=== PATIENT | female | born 1985 | race Caucasian/White ===

== ENCOUNTER 2021-03-04 10:42 | Outpatient (RCR) | payer OTHER, SELFPAY ==
[2021-03-03 13:45] LABS: Basophils Percent Auto 0.2 % (0.2-1.2); Eosinophils Absolute Auto 0.1 K/mm3 (0-0.3); Eosinophils Percent Auto 1.4 % (0-4.4); Hematocrit 33.5 % (37.0-47.0); Hemoglobin 11.6 g/dL (12.0-15.0); Immature Granulocyte Absolute 0.06 K/mm3 (0.00-0.031); Immature Granulocyte Percent A 0.6 % (0-0.5); Lymphocytes Absolute Auto 1.36 K/mm3 (0.9-3.2); Lymphocytes Percent Auto 13.6 % (18.3-44.2); Mean Corpuscular HGB Conc 34.6 g/dl (32-36); Mean Corpuscular Hemoglobin 31.4 pg (26-34); Mean Corpuscular Volume 90.5 fl (80-100); Mean Platelet Volume 9.7 fl (7.4-10.4); Monocytes Absolute Auto 0.6 K/mm3 (0.1-0.6); Monocytes Percent Auto 5.6 % (2.6-8.5); Neutrophils Absolute Auto 7.8 K/mm3 (1.3-6.7); Neutrophils Percent Auto 78.6 % (45.5-73.1); Platelet Count Result 150 k/mm3 (150-375); Red Cell Distribution Width 13.9 % (11.5-14.5)
[2021-03-03 13:57] LABS: Glucose 1 Hour PP 50gm Dose 114 mg/dL
[2021-03-04] MEDS: RHO(D) IMMUNE GLOBULIN 300 MCG/2 ML SYRINGE IM (16:48)
== END 2021-03-04 10:45 | disposition home or self-care (01) ==
LOC: ANHLAB 10:42
PROVIDERS: Visit Provider Obstetrics & Gynecology
DX: Z29.13 Encounter for prophylactic Rho(D) immune globulin (principal); Z3A.25 25 weeks gestation of pregnancy
CPT/HCPCS: 36415; 82947; 85025; 85461; 90384; 96372; J2790

== ENCOUNTER 2021-03-21 11:48 | Outpatient (CLI) | payer OTHER, SELFPAY ==
[2021-03-21] VITALS (7 sets, daily range): BP systolic 129–146; BP diastolic 80–92; PULSE 82–94
--- NOTE | ~2021-03-21 | US_ITS ---
US OB limited 03/21/2021 13:41 Indication: Variable deceleration. Amniotic fluid index. Procedure: High-resolution Limited obstetrical ultrasound Comparison: No prior studies for comparison. Findings: There is a single living intrauterine in vertex presentation. heart rate is 130 BPM. Amniotic fluid volume is normal. BELLA measures 18.1 cm. Placenta is anterior without previa. Impression: 1: Single living intrauterine in vertex presentation. 2: Normal BELLA measures 18.1 cm. Reviewed, dictated and finalized at location B. LINE PLANT OPERATOR Impression: 1: Single living intrauterine in vertex presentation. 2: Normal BELLA measures 18.1 cm.
[2021-03-21 12:36] LABS: Basophils Percent Auto 0.1 % (0.2-1.2); Eosinophils Absolute Auto 0.1 K/mm3 (0-0.3); Eosinophils Percent Auto 1.2 % (0-4.4); Hemoglobin 12.4 g/dL (12.0-15.0); Immature Granulocyte Absolute 0.05 K/mm3 (0.00-0.031); Immature Granulocyte Percent A 0.6 % (0-0.5); Lymphocytes Absolute Auto 1.11 K/mm3 (0.9-3.2); Lymphocytes Percent Auto 12.5 % (18.3-44.2); Mean Corpuscular HGB Conc 34.4 g/dl (32-36); Mean Corpuscular Hemoglobin 30.8 pg (26-34); Mean Corpuscular Volume 89.6 fl (80-100); Mean Platelet Volume 10.2 fl (7.4-10.4); Monocytes Absolute Auto 0.5 K/mm3 (0.1-0.6); Monocytes Percent Auto 5.3 % (2.6-8.5); Neutrophils Absolute Auto 7.1 K/mm3 (1.3-6.7); Neutrophils Percent Auto 80.3 % (45.5-73.1); Platelet Count Result 153 k/mm3 (150-375); Red Blood Count 4.02 M/mm3 (4.2-5.4); Red Cell Distribution Width 14.4 % (11.5-14.5); White Blood Count 8.9 K/mm3 (4.5-10.0)
[2021-03-21 12:47] LABS: Creatinine Urine 135.5 mg/dL; Total Protein Urine Random 16 mg/dL; Ur Ttl Prot Creatinine Ratio 0.12 mg/mg (0-0.20)
[2021-03-21 12:48] LABS: Alanine Aminotransferase 16 U/L (4-35); Albumin Level 3.9 g/dL (3.5-5.1); Alkaline Phosphatase 74 U/L (38-126); Anion Gap 9 mmol/L (8-16); Aspartate Amino Transferase 22 U/L (14-36); Bilirubin,Total 0.4 mg/dL (0.2-1.3); Blood Urea Nitrogen 7 mg/dL (7-17); Calcium 9.5 mg/dL (8.4-10.2); Carbon Dioxide 22 mmol/L (22-30); Chloride 105 mmol/L (98-107); Estimated Glomerular Filt Rate > 60; Glucose 102 mg/dL (65-110); Potassium 3.7 mmol/L (3.4-5.0); Sodium 136 mmol/L (137-145); Uric Acid 3.4 mg/dL (2.5-7.5)
[2021-03-21 12:55] LABS: Add Urine Microscopic? YES; Appearance Urine Cloudy (Clear); Bacteria Urine Trace /hpf; Bilirubin Urine Negative (Negative); Blood Urine Negative (Negative); Color Urine Yellow (Yellow); Glucose Urine UA Negative (Negative); Ketones Urine Negative (Negative); Leukocyte Esterase Ur 1+ LEU/UL (NEGATIVE); Mucus Urine Rare /lpf; Nitrate Urine Negative (Negative); Protein Urine Negative (Negative); Specific Grav Ur 1.016 (1.001-1.035); Squamous Epithelial Cell Urine Few /hpf (Few); Urobilinogen Urine Negative mg/dL (<2.0)
--- NOTE | 2021-03-21 13:20 | PC.NURSE ---
Called Dr. Kumar with labs and BPs. Informed of variable deceleration. BELLA ordered. August D/C home with 24hr urine if BELLA WNL.
== END 2021-03-21 13:55 | disposition home or self-care (01) ==
LOC: ANHOBOP 11:53 → ANHOBPP 11:53
PROVIDERS: Visit Provider Obstetrics & Gynecology
DX: O13.9 Gestational [pregnancy-induced] hypertension without significant proteinuria, unspecified trimester (principal); Z3A.00 Weeks of gestation of pregnancy not specified
CPT/HCPCS: 36415; 59025; 76815; 80053; 81001; 82570; 84156; 84550; 85025; 99199

== ENCOUNTER 2021-03-22 13:05 | Outpatient (CLI) | payer OTHER, SELFPAY ==
[2021-03-22 13:39] VITALS: BMI 36.1
[2021-03-22 17:26] LABS: Collection Time Urine 24 HOURS; Total Volume 24 Hour Urine 2400 ml
[2021-03-22 17:37] LABS: Creatinine Clearance Urine 193.7 ml/min (75-125); Creatinine Urine 86.2 mg/dL; Patient Weight 230 Lbs; Total Protein Urine 24 Hr 336 mg/24hr (28-141); Total Protein Urine Random 14 mg/dL
== END 2021-03-22 13:06 | disposition home or self-care (01) ==
LOC: ANHOBOP 13:07
PROVIDERS: Visit Provider Obstetrics & Gynecology
DX: R80.9 Proteinuria, unspecified (principal)
CPT/HCPCS: 81050; 82575; 84156

== ENCOUNTER 2021-04-27 11:50 | Outpatient (CLI) | payer OTHER, SELFPAY ==
[2021-04-27] MEDS: BETAMETHASONE SOD PHOS/ACETATE 30 MG/5 ML VIAL 12 MG IM (12:59)
== END 2021-04-27 11:51 | disposition home or self-care (01) ==
LOC: ANHOBOP 11:54
PROVIDERS: Visit Provider Obstetrics & Gynecology
DX: Z34.90 Encounter for supervision of normal pregnancy, unspecified, unspecified trimester (principal); Z3A.00 Weeks of gestation of pregnancy not specified
CPT/HCPCS: 59025; 76815; 96372; J0702

== ENCOUNTER 2021-04-28 12:58 | Outpatient (CLI) | payer OTHER, SELFPAY ==
[2021-04-28] MEDS: BETAMETHASONE SOD PHOS/ACETATE 30 MG/5 ML VIAL 12 MG IM (13:22)
== END 2021-04-28 12:59 | disposition home or self-care (01) ==
LOC: ANHOBOP 13:05
PROVIDERS: Visit Provider Obstetrics & Gynecology
DX: O36.8990 Maternal care for other specified fetal problems, unspecified trimester, not applicable or unspecified (principal)
CPT/HCPCS: 96372; J0702

== ENCOUNTER 2021-04-30 09:10 | Outpatient (CLI) | payer OTHER, SELFPAY ==
[2021-04-30] VITALS (8 sets, daily range): BP systolic 120–133; BP diastolic 74–86; PULSE 59–69
--- NOTE | ~2021-04-30 | US_ITS ---
EXAMINATION: US OB limited EXAM DATE: 04/30/2021 11:52 INDICATION: Preeclampsia/ BELLA. 3rd trimester. TECHNIQUE: Pelvic obstetrical transabdominal sonogram was performed by a technologist. There are mu ltiple grayscale and Doppler images available for interpretation. Comparison is made to prior examina tion from 04/27/2021. FINDINGS: There is a single fetus identified in vertex presentation with a heart rate of 133 beats pe r minute. The placenta is located in the anterior position. There is no sonographic evidence of retr oplacental hemorrhage identified. The amniotic fluid index is 12.1 centimeters, which is normal. IMPRESSION: 1. Single fetus in vertex presentation with heart rate 133 beats per minute. 2. Normal BELLA 12.1 cm. Reviewed, dictated and finalized at location A. ING CONSULTANT
[2021-04-30 10:09] LABS: Add Urine Microscopic? NO; Appearance Urine Clear (Clear); Bilirubin Urine Negative (Negative); Blood Urine Negative (Negative); Color Urine Yellow (Yellow); Glucose Urine UA Negative (Negative); Ketones Urine Negative (Negative); Leukocyte Esterase Ur Negative LEU/UL (NEGATIVE); Nitrate Urine Negative (Negative); Protein Urine Negative (Negative); Specific Grav Ur 1.017 (1.001-1.035); Urobilinogen Urine Negative mg/dL (<2.0)
[2021-04-30 10:13] LABS: Creatinine Urine 172.9 mg/dL; Total Protein Urine Random 25 mg/dL; Ur Ttl Prot Creatinine Ratio 0.14 mg/mg (0-0.20)
[2021-04-30 10:18] LABS: Alanine Aminotransferase 14 U/L (4-35); Albumin Level 3.4 g/dL (3.5-5.1); Alkaline Phosphatase 94 U/L (38-126); Anion Gap 7 mmol/L (8-16); Aspartate Amino Transferase 20 U/L (14-36); Bilirubin,Total 0.2 mg/dL (0.2-1.3); Blood Urea Nitrogen 7 mg/dL (7-17); Calcium 8.6 mg/dL (8.4-10.2); Carbon Dioxide 24 mmol/L (22-30); Chloride 105 mmol/L (98-107); Estimated Glomerular Filt Rate > 60; Glucose 99 mg/dL (65-110); Potassium 3.2 mmol/L (3.4-5.0); Sodium 136 mmol/L (137-145); Uric Acid 4.4 mg/dL (2.5-7.5)
[2021-04-30 10:29] LABS: Basophils Percent Auto 0.3 % (0.2-1.2); Eosinophils Absolute Auto 0.1 K/mm3 (0-0.3); Eosinophils Percent Auto 0.4 % (0-4.4); Hematocrit 33.4 % (37.0-47.0); Hemoglobin 11.2 g/dL (12.0-15.0); Immature Granulocyte Absolute 0.43 K/mm3 (0.00-0.031); Immature Granulocyte Percent A 3.8 % (0-0.5); Lymphocytes Absolute Auto 1.68 K/mm3 (0.9-3.2); Mean Corpuscular HGB Conc 33.5 g/dl (32-36); Mean Corpuscular Hemoglobin 30.5 pg (26-34); Mean Platelet Volume 10.7 fl (7.4-10.4); Monocytes Absolute Auto 0.8 K/mm3 (0.1-0.6); Monocytes Percent Auto 7.5 % (2.6-8.5); Neutrophils Absolute Auto 8.2 K/mm3 (1.3-6.7); Platelet Count Result 167 k/mm3 (150-375); Red Blood Count 3.67 M/mm3 (4.2-5.4); Red Cell Distribution Width 14.4 % (11.5-14.5); White Blood Count 11.2 K/mm3 (4.5-10.0)
--- NOTE | 2021-04-30 11:28 | PC.NURSE ---
Dr Kumar notified of adm c/o of R upper quad pain, informed of BP's here and at home and lab results. OK to do BELLA today and okto dc home.
== END 2021-04-30 12:12 | disposition home or self-care (01) ==
LOC: ANHOBOP 09:18 → ANHOBPP 09:18
PROVIDERS: Visit Provider Obstetrics & Gynecology
DX: R10.11 Right upper quadrant pain (principal)
CPT/HCPCS: 36415; 59025; 76815; 80053; 81003; 82570; 84156; 84550; 85025; 99199

== ENCOUNTER 2021-05-14 08:59 | Outpatient (RCR) | payer OTHER, SELFPAY ==
[2021-03-28 15:16] LABS: Hematocrit 35.2 % (37.0-47.0); Hemoglobin 12.1 g/dL (12.0-15.0); Mean Corpuscular HGB Conc 34.4 g/dl (32-36); Mean Corpuscular Volume 90.3 fl (80-100); Mean Platelet Volume 10.1 fl (7.4-10.4); Platelet Count Result 159 k/mm3 (150-375); Red Cell Distribution Width 14.4 % (11.5-14.5); White Blood Count 8.6 K/mm3 (4.5-10.0)
[2021-03-28 15:25] LABS: Alanine Aminotransferase 13 U/L (4-35); Albumin Level 3.7 g/dL (3.5-5.1); Alkaline Phosphatase 72 U/L (38-126); Anion Gap 7 mmol/L (8-16); Aspartate Amino Transferase 20 U/L (14-36); Bilirubin,Total 0.4 mg/dL (0.2-1.3); Blood Urea Nitrogen 7 mg/dL (7-17); Calcium 9.2 mg/dL (8.4-10.2); Carbon Dioxide 24 mmol/L (22-30); Chloride 104 mmol/L (98-107); Estimated Glomerular Filt Rate > 60; Glucose 100 mg/dL (65-110); Potassium 3.8 mmol/L (3.4-5.0); Sodium 135 mmol/L (137-145); Uric Acid 3.2 mg/dL (2.5-7.5)
[2021-03-28 15:51] VITALS: BP 124/82; PULSE 100
--- NOTE | 2021-03-28 16:27 | PC.NURSE ---
Dr Kumar informed of US results, NST and Labs. Ok to dc home.
[2021-03-31 09:17] LABS: Basophils Percent Auto 0.2 % (0.2-1.2); Eosinophils Absolute Auto 0.1 K/mm3 (0-0.3); Eosinophils Percent Auto 1.5 % (0-4.4); Hematocrit 34.6 % (37.0-47.0); Hemoglobin 11.8 g/dL (12.0-15.0); Immature Granulocyte Absolute 0.06 K/mm3 (0.00-0.031); Immature Granulocyte Percent A 0.7 % (0-0.5); Lymphocytes Absolute Auto 0.98 K/mm3 (0.9-3.2); Lymphocytes Percent Auto 12.1 % (18.3-44.2); Mean Corpuscular HGB Conc 34.1 g/dl (32-36); Mean Corpuscular Hemoglobin 30.6 pg (26-34); Mean Corpuscular Volume 89.9 fl (80-100); Mean Platelet Volume 9.6 fl (7.4-10.4); Monocytes Absolute Auto 0.5 K/mm3 (0.1-0.6); Monocytes Percent Auto 6.3 % (2.6-8.5); Neutrophils Absolute Auto 6.4 K/mm3 (1.3-6.7); Neutrophils Percent Auto 79.2 % (45.5-73.1); Platelet Count Result 146 k/mm3 (150-375); Red Blood Count 3.85 M/mm3 (4.2-5.4); Red Cell Distribution Width 14.6 % (11.5-14.5); White Blood Count 8.1 K/mm3 (4.5-10.0)
[2021-03-31 09:27] LABS: Alanine Aminotransferase 15 U/L (4-35); Albumin Level 3.8 g/dL (3.5-5.1); Alkaline Phosphatase 71 U/L (38-126); Anion Gap 5 mmol/L (8-16); Aspartate Amino Transferase 21 U/L (14-36); Bilirubin,Total 0.4 mg/dL (0.2-1.3); Blood Urea Nitrogen 8 mg/dL (7-17); Calcium 9.2 mg/dL (8.4-10.2); Carbon Dioxide 26 mmol/L (22-30); Chloride 101 mmol/L (98-107); Estimated Glomerular Filt Rate > 60; Glucose 95 mg/dL (65-110); Potassium 3.8 mmol/L (3.4-5.0); Sodium 132 mmol/L (137-145); Uric Acid 3.1 mg/dL (2.5-7.5)
[2021-04-03 12:55] LABS: Basophils Percent Auto 0.2 % (0.2-1.2); Eosinophils Absolute Auto 0.1 K/mm3 (0-0.3); Eosinophils Percent Auto 0.8 % (0-4.4); Hematocrit 34.1 % (37.0-47.0); Hemoglobin 11.8 g/dL (12.0-15.0); Immature Granulocyte Absolute 0.07 K/mm3 (0.00-0.031); Immature Granulocyte Percent A 0.7 % (0-0.5); Lymphocytes Absolute Auto 1.31 K/mm3 (0.9-3.2); Mean Corpuscular HGB Conc 34.6 g/dl (32-36); Mean Corpuscular Hemoglobin 31.1 pg (26-34); Mean Corpuscular Volume 89.7 fl (80-100); Mean Platelet Volume 10.1 fl (7.4-10.4); Monocytes Absolute Auto 0.5 K/mm3 (0.1-0.6); Monocytes Percent Auto 5.3 % (2.6-8.5); Neutrophils Absolute Auto 8.1 K/mm3 (1.3-6.7); Platelet Count Result 157 k/mm3 (150-375); Red Cell Distribution Width 14.6 % (11.5-14.5); White Blood Count 10.1 K/mm3 (4.5-10.0)
[2021-04-03 13:02] LABS: Creatinine Urine 51.4 mg/dL; Total Protein Urine Random 14 mg/dL; Ur Ttl Prot Creatinine Ratio 0.27 mg/mg (0-0.20)
[2021-04-03 13:08] LABS: Alanine Aminotransferase 14 U/L (4-35); Albumin Level 3.9 g/dL (3.5-5.1); Alkaline Phosphatase 78 U/L (38-126); Anion Gap 7 mmol/L (8-16); Aspartate Amino Transferase 20 U/L (14-36); Bilirubin,Total 0.3 mg/dL (0.2-1.3); Blood Urea Nitrogen 7 mg/dL (7-17); Calcium 9.3 mg/dL (8.4-10.2); Carbon Dioxide 21 mmol/L (22-30); Chloride 102 mmol/L (98-107); Estimated Glomerular Filt Rate > 60; Glucose 96 mg/dL (65-110); Potassium 3.8 mmol/L (3.4-5.0); Sodium 130 mmol/L (137-145); Uric Acid 3.2 mg/dL (2.5-7.5)
[2021-04-03 13:51] LABS: Add Urine Microscopic? NO; Appearance Urine Clear (Clear); Bilirubin Urine Negative (Negative); Blood Urine Negative (Negative); Color Urine Straw (Yellow); Glucose Urine UA Negative (Negative); Ketones Urine Negative (Negative); Leukocyte Esterase Ur Negative LEU/UL (NEGATIVE); Nitrate Urine Negative (Negative); Protein Urine Negative (Negative); Specific Grav Ur 1.006 (1.001-1.035); Urobilinogen Urine Negative mg/dL (<2.0)
[2021-04-03 14:13] VITALS: BP 129/84; PULSE 87
[2021-04-07 12:43] VITALS: BP 130/89; PULSE 75
[2021-04-10 08:57] LABS: Basophils Percent Auto 0.3 % (0.2-1.2); Eosinophils Absolute Auto 0.1 K/mm3 (0-0.3); Eosinophils Percent Auto 1.6 % (0-4.4); Hematocrit 34.1 % (37.0-47.0); Hemoglobin 11.8 g/dL (12.0-15.0); Immature Granulocyte Absolute 0.04 K/mm3 (0.00-0.031); Immature Granulocyte Percent A 0.5 % (0-0.5); Lymphocytes Absolute Auto 0.97 K/mm3 (0.9-3.2); Lymphocytes Percent Auto 12.5 % (18.3-44.2); Mean Corpuscular HGB Conc 34.6 g/dl (32-36); Mean Corpuscular Hemoglobin 30.6 pg (26-34); Mean Corpuscular Volume 88.6 fl (80-100); Mean Platelet Volume 9.9 fl (7.4-10.4); Monocytes Absolute Auto 0.5 K/mm3 (0.1-0.6); Monocytes Percent Auto 6.2 % (2.6-8.5); Neutrophils Absolute Auto 6.1 K/mm3 (1.3-6.7); Neutrophils Percent Auto 78.9 % (45.5-73.1); Platelet Count Result 148 k/mm3 (150-375); Red Blood Count 3.85 M/mm3 (4.2-5.4); Red Cell Distribution Width 14.5 % (11.5-14.5); White Blood Count 7.7 K/mm3 (4.5-10.0)
[2021-04-10 09:00] VITALS: BP 137/89; PULSE 90
[2021-04-10 09:08] LABS: Anion Gap 6 mmol/L (8-16); Blood Urea Nitrogen 5 mg/dL (7-17); Carbon Dioxide 21 mmol/L (22-30); Chloride 106 mmol/L (98-107); Potassium 3.7 mmol/L (3.4-5.0); Sodium 133 mmol/L (137-145)
[2021-04-10 09:09] LABS: Alanine Aminotransferase 13 U/L (4-35); Albumin Level 3.4 g/dL (3.5-5.1); Alkaline Phosphatase 79 U/L (38-126); Aspartate Amino Transferase 22 U/L (14-36); Bilirubin,Total 0.3 mg/dL (0.2-1.3); Estimated Glomerular Filt Rate > 60; Glucose 117 mg/dL (65-110)
[2021-04-10 09:10] LABS: Add Urine Microscopic? YES; Appearance Urine Clear (Clear); Bacteria Urine Trace /hpf; Bilirubin Urine Negative (Negative); Blood Urine Negative (Negative); Color Urine Yellow (Yellow); Glucose Urine UA 1+ mg/dL (Negative); Ketones Urine Negative (Negative); Leukocyte Esterase Ur Negative LEU/UL (NEGATIVE); Mucus Urine Rare /lpf; Nitrate Urine Negative (Negative); Protein Urine Negative (Negative); RBC Urine 0-2 /hpf (0-2); Specific Grav Ur 1.013 (1.001-1.035); Squamous Epithelial Cell Urine Occasional /hpf (Few); Urobilinogen Urine Negative mg/dL (<2.0)
--- NOTE | 2021-04-10 09:30 | PC.NURSE ---
Dr. Kumar called with lab results and NST. Discharge orders received with standard labor precautions.
[2021-04-10 10:10] LABS: Creatinine Urine 120.6 mg/dL; Total Protein Urine Random 22 mg/dL; Ur Ttl Prot Creatinine Ratio 0.18 mg/mg (0-0.20)
[2021-04-13 09:50] VITALS: BP 129/84; PULSE 86
[2021-04-17 08:22] VITALS: BP 122/86; PULSE 85
[2021-04-17 08:28] LABS: Basophils Percent Auto 0.2 % (0.2-1.2); Eosinophils Absolute Auto 0.2 K/mm3 (0-0.3); Hematocrit 34.9 % (37.0-47.0); Immature Granulocyte Absolute 0.06 K/mm3 (0.00-0.031); Immature Granulocyte Percent A 0.7 % (0-0.5); Lymphocytes Absolute Auto 1.18 K/mm3 (0.9-3.2); Lymphocytes Percent Auto 14.5 % (18.3-44.2); Mean Corpuscular HGB Conc 34.4 g/dl (32-36); Mean Corpuscular Hemoglobin 30.7 pg (26-34); Mean Corpuscular Volume 89.3 fl (80-100); Mean Platelet Volume 9.9 fl (7.4-10.4); Monocytes Absolute Auto 0.5 K/mm3 (0.1-0.6); Monocytes Percent Auto 5.8 % (2.6-8.5); Neutrophils Absolute Auto 6.2 K/mm3 (1.3-6.7); Neutrophils Percent Auto 76.8 % (45.5-73.1); Platelet Count Result 141 k/mm3 (150-375); Red Blood Count 3.91 M/mm3 (4.2-5.4); Red Cell Distribution Width 14.5 % (11.5-14.5); White Blood Count 8.1 K/mm3 (4.5-10.0)
[2021-04-17 08:39] LABS: Alanine Aminotransferase 14 U/L (4-35); Albumin Level 3.3 g/dL (3.5-5.1); Alkaline Phosphatase 88 U/L (38-126); Anion Gap 8 mmol/L (8-16); Aspartate Amino Transferase 21 U/L (14-36); Bilirubin,Total 0.4 mg/dL (0.2-1.3); Blood Urea Nitrogen 6 mg/dL (7-17); Carbon Dioxide 21 mmol/L (22-30); Chloride 106 mmol/L (98-107); Estimated Glomerular Filt Rate > 60; Glucose 130 mg/dL (65-110); Potassium 3.7 mmol/L (3.4-5.0); Sodium 135 mmol/L (137-145); Uric Acid 3.5 mg/dL (2.5-7.5)
[2021-04-17 08:48] LABS: Add Urine Microscopic? YES; Appearance Urine Cloudy (Clear); Bacteria Urine Trace /hpf; Bilirubin Urine Negative (Negative); Blood Urine Negative (Negative); Color Urine Yellow (Yellow); Glucose Urine UA Negative (Negative); Ketones Urine Negative (Negative); Leukocyte Esterase Ur 1+ LEU/UL (NEGATIVE); Mucus Urine Few /lpf; Nitrate Urine Negative (Negative); Protein Urine Negative (Negative); Specific Grav Ur 1.017 (1.001-1.035); Squamous Epithelial Cell Urine Moderate /hpf (Few); Urobilinogen Urine Negative mg/dL (<2.0)
[2021-04-17 08:53] LABS: Creatinine Urine 185.5 mg/dL; Total Protein Urine Random 15 mg/dL; Ur Ttl Prot Creatinine Ratio 0.08 mg/mg (0-0.20)
--- NOTE | 2021-04-17 09:39 | PC.NURSE ---
0930- BELLA 8.0, called Dr. Prescott, reviewed labs and BELLA, discharge to home
[2021-04-20 11:26] VITALS: BP 127/90; PULSE 80
[2021-04-24 08:39] LABS: Basophils Percent Auto 0.2 % (0.2-1.2); Eosinophils Absolute Auto 0.1 K/mm3 (0-0.3); Hematocrit 35.2 % (37.0-47.0); Immature Granulocyte Absolute 0.06 K/mm3 (0.00-0.031); Immature Granulocyte Percent A 0.5 % (0-0.5); Lymphocytes Percent Auto 8.9 % (18.3-44.2); Mean Corpuscular HGB Conc 34.1 g/dl (32-36); Mean Corpuscular Hemoglobin 30.2 pg (26-34); Mean Corpuscular Volume 88.7 fl (80-100); Mean Platelet Volume 10.2 fl (7.4-10.4); Monocytes Absolute Auto 0.6 K/mm3 (0.1-0.6); Monocytes Percent Auto 4.9 % (2.6-8.5); Neutrophils Absolute Auto 9.5 K/mm3 (1.3-6.7); Neutrophils Percent Auto 84.5 % (45.5-73.1); Platelet Count Result 150 k/mm3 (150-375); Red Blood Count 3.97 M/mm3 (4.2-5.4); Red Cell Distribution Width 14.6 % (11.5-14.5); White Blood Count 11.2 K/mm3 (4.5-10.0)
[2021-04-24 08:51] LABS: Alanine Aminotransferase 16 U/L (4-35); Albumin Level 3.5 g/dL (3.5-5.1); Alkaline Phosphatase 106 U/L (38-126); Anion Gap 10 mmol/L (8-16); Aspartate Amino Transferase 22 U/L (14-36); Bilirubin,Total 0.4 mg/dL (0.2-1.3); Blood Urea Nitrogen 6 mg/dL (7-17); Carbon Dioxide 19 mmol/L (22-30); Chloride 104 mmol/L (98-107); Estimated Glomerular Filt Rate > 60; Glucose 145 mg/dL (65-110); Potassium 3.6 mmol/L (3.4-5.0); Sodium 133 mmol/L (137-145); Uric Acid 4.2 mg/dL (2.5-7.5)
[2021-04-24 08:57] VITALS: BP 124/85; PULSE 116
[2021-04-24 09:30] LABS: HIV 1/2 Ab P24 Ag Result Negative (Negative)
[2021-04-24 14:57] LABS: Rapid Plasma Reagin Non-Reactive (NonReactive)
[2021-04-27 13:29] VITALS: BP 128/86; PULSE 81
[2021-05-03 12:35] LABS: Basophils Percent Auto 0.2 % (0.2-1.2); Eosinophils Absolute Auto 0.1 K/mm3 (0-0.3); Eosinophils Percent Auto 0.9 % (0-4.4); Hematocrit 37.4 % (37.0-47.0); Hemoglobin 12.5 g/dL (12.0-15.0); Immature Granulocyte Absolute 0.11 K/mm3 (0.00-0.031); Immature Granulocyte Percent A 1.1 % (0-0.5); Lymphocytes Absolute Auto 1.25 K/mm3 (0.9-3.2); Lymphocytes Percent Auto 11.9 % (18.3-44.2); Mean Corpuscular HGB Conc 33.4 g/dl (32-36); Mean Corpuscular Hemoglobin 30.2 pg (26-34); Mean Corpuscular Volume 90.3 fl (80-100); Mean Platelet Volume 10.7 fl (7.4-10.4); Monocytes Absolute Auto 0.7 K/mm3 (0.1-0.6); Monocytes Percent Auto 6.7 % (2.6-8.5); Neutrophils Absolute Auto 8.3 K/mm3 (1.3-6.7); Neutrophils Percent Auto 79.2 % (45.5-73.1); Platelet Count Result 175 k/mm3 (150-375); Red Blood Count 4.14 M/mm3 (4.2-5.4); Red Cell Distribution Width 14.6 % (11.5-14.5); White Blood Count 10.5 K/mm3 (4.5-10.0)
[2021-05-03 12:45] LABS: Alanine Aminotransferase 12 U/L (4-35); Albumin Level 3.7 g/dL (3.5-5.1); Alkaline Phosphatase 117 U/L (38-126); Anion Gap 8 mmol/L (8-16); Aspartate Amino Transferase 19 U/L (14-36); Bilirubin,Total 0.6 mg/dL (0.2-1.3); Blood Urea Nitrogen 7 mg/dL (7-17); Calcium 9.5 mg/dL (8.4-10.2); Carbon Dioxide 23 mmol/L (22-30); Chloride 104 mmol/L (98-107); Estimated Glomerular Filt Rate > 60; Glucose 91 mg/dL (65-110); Potassium 4.1 mmol/L (3.4-5.0); Sodium 135 mmol/L (137-145)
[2021-05-03 13:15] LABS: Creatinine Urine 55.2 mg/dL; Total Protein Urine Random 10 mg/dL; Ur Ttl Prot Creatinine Ratio 0.18 mg/mg (0-0.20)
[2021-05-03 13:30] VITALS: BP 134/88; PULSE 86
[2021-05-08 10:56] LABS: Hematocrit 36.9 % (37.0-47.0); Hemoglobin 12.6 g/dL (12.0-15.0); Mean Corpuscular HGB Conc 34.1 g/dl (32-36); Mean Corpuscular Hemoglobin 30.4 pg (26-34); Mean Corpuscular Volume 89.1 fl (80-100); Mean Platelet Volume 10.8 fl (7.4-10.4); Platelet Count Result 167 k/mm3 (150-375); Red Blood Count 4.14 M/mm3 (4.2-5.4); Red Cell Distribution Width 14.5 % (11.5-14.5); White Blood Count 7.1 K/mm3 (4.5-10.0)
[2021-05-08 11:03] VITALS: BP 125/91; PULSE 95
[2021-05-08 11:08] LABS: Alanine Aminotransferase 15 U/L (4-35); Albumin Level 3.8 g/dL (3.5-5.1); Alkaline Phosphatase 131 U/L (38-126); Anion Gap 9 mmol/L (8-16); Aspartate Amino Transferase 21 U/L (14-36); Bilirubin,Total 0.3 mg/dL (0.2-1.3); Blood Urea Nitrogen 9 mg/dL (7-17); Calcium 9.5 mg/dL (8.4-10.2); Carbon Dioxide 21 mmol/L (22-30); Chloride 104 mmol/L (98-107); Estimated Glomerular Filt Rate > 60; Glucose 128 mg/dL (65-110); Potassium 3.6 mmol/L (3.4-5.0); Sodium 134 mmol/L (137-145); Uric Acid 4.6 mg/dL (2.5-7.5)
--- NOTE | 2021-05-08 11:14 | PC.NURSE ---
1110- Spoke with Dr. Kumar, orders for BELLA today. patient can leave after, will review results at appt
[2021-05-11 11:03] VITALS: BP 137/90; PULSE 112
--- NOTE | 2021-05-11 11:38 | PC.NURSE ---
1132- Spoke with Dr. Kumar, BELLA and BPs reviewed. Orders to discharge to home.
--- NOTE | ~2021-05-14 | US_ITS ---
EXAMINATION: US OB limited DATE: 04/27/2021 13:24 INDICATION: Preeclampsia, amniotic fluid index assessment, third trimester TECHNIQUE: Real-time ultrasound of the pelvis was performed. The interpreting radiologist was not pre sent for the study. COMPARISON: 04/24/2021 FINDINGS: There is a single living fetus in vertex presentation. The placenta is anterior. card iac activity and movement are noted. heart rate is 150 beats per minute (bpm). The amniot ic fluid index is 8.0 cm which is low (normal range: 8.1 cm to 24.8 cm) . IMPRESSION: 1. Single living fetus in vertex presentation. 2. Oligohydramnios. Reviewed, dictated and finalized at location A. OR SOFTWARE DEVELOPER
--- NOTE | ~2021-05-14 | US_ITS ---
US OB limited DATE: 04/13/2021 09:19 INDICATION: Amniotic fluid index determination. Preeclampsia. Oligohydramnios. TECHNIQUE: Real-time imaging and Doppler analysis COMPARISON: 04/10/2021 Limited obstetrical ultrasound examination FINDINGS: Live dueñas intrauterine gestation, fetus in longitudinal lie, vertex presentation. Feta l heart rate of 141 bpm. Anterior placenta. Amniotic fluid index measures 7.5 cm, below the 5th percentile and 8.6 cm. 95th percentile BELLA is 24. 2 cm. IMPRESSION: BELLA measures 7.5 cm, below the 5th percentile of 8.6 cm Reviewed, dictated and finalized at Location A. Reviewed, dictated and finalized at location A. CAR CARPENTER
--- NOTE | ~2021-05-14 | US_ITS ---
EXAMINATION: US OB limited DATE: 03/31/2021 09:36 INDICATION: Preeclampsia, third trimester TECHNIQUE: Real-time ultrasound of the pelvis was performed. The interpreting radiologist was not pre sent for the study. COMPARISON: 03/28/2021 FINDINGS: There is a single living fetus in vertex presentation. The placenta is anterior. card iac activity and movement are noted. heart rate is 138 beats per minute (bpm). The amniot ic fluid index is 10.5 cm which is normal. IMPRESSION: 1. Single living fetus in vertex presentation. 2. Normal amniotic fluid index. Reviewed, dictated and finalized at location A. ICE RN
--- NOTE | ~2021-05-14 | US_ITS ---
EXAMINATION: US OB limited DATE: 04/24/2021 09:08 INDICATION: Oligohydramnios. Third trimester. TECHNIQUE: Real-time ultrasound of the pelvis was performed. COMPARISON: Ultrasound 04/20/2021 FINDINGS: There is a single fetus in vertex presentation. The placenta is anterior. heart rate is 154 be ats per minute (bpm). The amniotic fluid index is 8.5 cm, which is normal. IMPRESSION: 1. Single living fetus in vertex presentation. 2. Normal amniotic fluid index. Reviewed, dictated and finalized at location A. DRY MARKER SUPERVISOR
--- NOTE | ~2021-05-14 | US_ITS ---
EXAMINATION: US OB limited DATE: 04/07/2021 13:14 INDICATION: Oligohydramnios. Third trimester. TECHNIQUE: Real-time ultrasound of the pelvis was performed. COMPARISON: Ultrasound 04/03/21 FINDINGS: There is a single fetus in vertex presentation. The placenta is anterior, 11.3 cm from the cervix. F etal heart rate is 127 beats per minute (bpm). The amniotic fluid index is 8.0 cm, which is low (5th percentile is 8.8 cm). IMPRESSION: 1. Single living fetus in vertex presentation. 2. Oligohydramnios. Reviewed, dictated and finalized at location A. WATER MACHINE OPERATOR
--- NOTE | ~2021-05-14 | US_ITS ---
US OB limited 05/14/2021 09:50 Indication: Evaluate amniotic fluid index. Gestational hypertension. Procedure: High-resolution Limited obstetrical ultrasound Comparison: 05/11/2021 Findings: There is a single living intrauterine in vertex presentation with heart rat e of 145 BPM. Placenta is anterior. Amniotic fluid index is below normal limits measuring 7.1 cm (nor mal range for gestational age is 7.7-24.9 cm). Impression: 1: Persistent oligohydramnios. Reviewed, dictated and finalized at location B. ER WORKER Impression: 1: Persistent oligohydramnios.
--- NOTE | ~2021-05-14 | US_ITS ---
EXAMINATION: US OB limited DATE: 04/20/2021 10:06 INDICATION: Preeclampsia. Third trimester. TECHNIQUE: Real-time ultrasound of the pelvis was performed. COMPARISON: Ultrasound 04/17/2021 FINDINGS: There is a single fetus in vertex presentation. The placenta is anterior. heart rate is 139 be ats per minute (bpm). The amniotic fluid index is 7.0 cm, which is low (5th percentile is 8.3 cm). IMPRESSION: 1. Single living fetus in vertex presentation. 2. Oligohydramnios. Reviewed, dictated and finalized at location A. CTOR MUSIC
--- NOTE | ~2021-05-14 | US_ITS ---
US OB limited DATE: 05/11/2021 11:19 INDICATION: Low normal amniotic fluid index TECHNIQUE: Real-time imaging and Doppler analysis COMPARISON: 05/08/2021 obstetrical ultrasound Limited examination FINDINGS: Vertex presentation. heart rate of 137 bpm. Anterior placenta. Amniotic fluid index measures 7.3 cm, below the 5th percentile BELLA 7.7 cm. IMPRESSION: Oligohydramnios: Amniotic fluid index of 7.3 cm Reviewed, dictated and finalized at Location A. Reviewed, dictated and finalized at location A. AND DIE MACHINIST
--- NOTE | ~2021-05-14 | US_ITS ---
US OB limited 04/10/2021 08:55 Indication: Preeclampsia Procedure: High-resolution Limited obstetrical ultrasound Comparison: 04/07/2021 Findings: There is a single living intrauterine in vertex presentation. heart rate is 166 BPM. Placenta is anterior. Amniotic fluid index is below normal limits measuring 6.7 cm (normal range for gestational age 8.6-24.2 cm). Impression: 1: Oligohydramnios. Reviewed, dictated and finalized at location A. OYMENT SECURITY OFFICER Impression: 1: Oligohydramnios.
--- NOTE | ~2021-05-14 | US_ITS ---
EXAMINATION: US OB limited DATE: 04/03/2021 13:22 INDICATION: Preeclampsia during third trimester . TECHNIQUE: Real-time ultrasound of the pelvis was performed. The interpreting radiologist was not pre sent for the study. COMPARISON: None. FINDINGS: There is a single living fetus in vertex presentation. The placenta is anterior. heart rate is 134 beats per minute (bpm). The amniotic fluid index is 9.3 cm, which is normal (5th%-95%: 8.8-23.8 cm at 31 weeks estimated gestational age). IMPRESSION: 1. Single living fetus in vertex presentation with heart rate of 134 bpm. 2. Normal amniotic fluid index of 9.3 cm. Reviewed, dictated and finalized at location A. ST NURSERY SUPERVISOR IMPRESSION: 1. Single living fetus in vertex presentation with heart rate of 134 bpm . 2. Normal amniotic fluid index of 9.3 cm.
--- NOTE | ~2021-05-14 | US_ITS ---
EXAMINATION: US OB limited DATE: 05/08/2021 11:36 INDICATION: Assess amniotic fluid index TECHNIQUE: Real-time ultrasound of the pelvis was performed. The interpreting radiologist was not pre sent for the study. COMPARISON: 05/03/2021 FINDINGS: There is a single living fetus in vertex presentation. The placenta is anterior and not low-lying. F etal heart rate is 135 beats per minute (bpm). The amniotic fluid index is 8.4 cm, which is normal (5 th%-95%: 7.7-24.9 cm at 36 weeks estimated gestational age). IMPRESSION: 1. Single living fetus in vertex presentation with heart rate of 135 bpm. 2. Normal amniotic fluid index of 8.4 cm. Reviewed, dictated and finalized at location A. PROFIT JOB TITLES
--- NOTE | ~2021-05-14 | US_ITS ---
EXAMINATION: US OB limited DATE: 04/17/2021 09:27 INDICATION: Assess amniotic fluid index during third trimester of TECHNIQUE: Real-time ultrasound of the pelvis was performed. The interpreting radiologist was not pre sent for the study. COMPARISON: 04/13/2021 FINDINGS: There is a single living fetus in vertex presentation. The placenta is anterior. heart rate is 138 beats per minute (bpm). The amniotic fluid index is 8.0 cm is just below the lower limits of nor mal (5th%-95%: 8.3-24.5 cm at 33 weeks estimated gestational age). IMPRESSION: 1. Single living fetus in vertex presentation with heart rate of 138 bpm. 2. Oligohydramnios with amniotic fluid index of 8.0 cm which is slightly greater than 2 standard maicol ations below the mean. Reviewed, dictated and finalized at location A. TRICAL CAD DESIGNER IMPRESSION: 1. Single living fetus in vertex presentation with heart rate of 138 bpm . 2. Oligohydramnios with amniotic fluid index of 8.0 cm which is slightly greate r than 2 standard deviations below the mean.
--- NOTE | ~2021-05-14 | US_ITS ---
EXAMINATION: US OB limited DATE: 05/03/2021 14:23 INDICATION: Preeclampsia. Third trimester. TECHNIQUE: Real-time ultrasound of the pelvis was performed. COMPARISON: Ultrasound 04/30/2021 FINDINGS: There is a single fetus in vertex presentation. The placenta is anterior. heart rate is 140 be ats per minute (bpm). The amniotic fluid index is 9.5 cm, which is normal. IMPRESSION: 1. Single living fetus in vertex presentation. 2. Normal amniotic fluid index. Reviewed, dictated and finalized at location B. DINGS AND GROUNDS SUPERINTENDENT
--- NOTE | ~2021-05-14 | US_ITS ---
EXAMINATION: Omero Kumar MD DATE: 03/28/2021 15:50 INDICATION: Preeclampsia during third trimester of . Assess growth TECHNIQUE: Real-time ultrasound of the pelvis was performed. The interpreting radiologist was not pre sent for the study. COMPARISON: None. FINDINGS: There is a single living fetus in vertex presentation. The placenta is anterior. heart rate is 141 beats per minute (bpm). The amniotic fluid index is 8.0 cm, which is greater than 2 standard dev iations below the mean (5th%-95%: 9.0-23.4 cm at 30 weeks estimated gestational age) . The following biometric data were obtained: BPD: 7.8 cm -> 31 weeks 2 days Head circumference: 28.3 cm -> 31 weeks 0 days Abdominal circumference: 27.2 cm -> 31 weeks 2 days Femur length: 5.6 cm -> 29 weeks 4 days These measurements are concordant. Head circumference to abdominal circumference ratio: 1.04 (normal range 0.96-1.17). Estimated weight: 1632 g (+/-) 245 g, 3lbs 10oz (+/-) 9oz Biophysical profile performed by the technologist: breathing (30 sec sustained breathing in 30 minutes): 2 out of 2 movement (3 gross body movements in 30 minutes: 2 out of 2 tone (one episode of qvvpalv-xpzdioouz-lzfwvew limb movement): 2 out of 2 Amniotic fluid pocket (2 cm): 2 out of 2 Total score: 8 out of 8 IMPRESSION: 1. Single living fetus in vertex presentation. 2. Oligohydramnios with amniotic fluid index of 8.0 cm greater than 2 standard deviations below the mean. 3. Biophysical profile 8 out of 8. 4. Estimated weight is 59th percentile by Hadlock criteria when 06/05/2021 is used as the estim ated date of delivery (NINFA). Please correlate with clinical information or earlier ultrasounds for mo st accurate NINFA. Reviewed, dictated and finalized at location B. ERSHIP SALES REPRESENTATIVE IMPRESSION: 1. Single living fetus in vertex presentation. 2. Oligohydramnios with amniotic fluid index of 8.0 cm greater than 2 standard deviations below the mean. 3. Biophysical profile 8 out of 8. 4. Estimated weight is 59th percentile by Hadlock criteria when 2 is used as the estimated date of delivery (NINFA). Please correlate with clinic al information or earlier ultrasounds for most accurate NINFA.
[2021-05-14 09:28] VITALS: BP 138/96; PULSE 93
[2021-05-14 09:31] LABS: Basophils Percent Auto 0.4 % (0.2-1.2); Eosinophils Absolute Auto 0.1 K/mm3 (0-0.3); Hematocrit 35.8 % (37.0-47.0); Hemoglobin 12.3 g/dL (12.0-15.0); Immature Granulocyte Absolute 0.04 K/mm3 (0.00-0.031); Immature Granulocyte Percent A 0.5 % (0-0.5); Lymphocytes Absolute Auto 1.44 K/mm3 (0.9-3.2); Lymphocytes Percent Auto 18.8 % (18.3-44.2); Mean Corpuscular HGB Conc 34.4 g/dl (32-36); Mean Corpuscular Volume 90.2 fl (80-100); Mean Platelet Volume 10.8 fl (7.4-10.4); Monocytes Absolute Auto 0.4 K/mm3 (0.1-0.6); Monocytes Percent Auto 5.1 % (2.6-8.5); Neutrophils Absolute Auto 5.7 K/mm3 (1.3-6.7); Neutrophils Percent Auto 74.2 % (45.5-73.1); Platelet Count Result 164 k/mm3 (150-375); Red Blood Count 3.97 M/mm3 (4.2-5.4); Red Cell Distribution Width 14.5 % (11.5-14.5); White Blood Count 7.6 K/mm3 (4.5-10.0)
[2021-05-14 09:43] LABS: Alanine Aminotransferase 16 U/L (4-35); Albumin Level 3.4 g/dL (3.5-5.1); Alkaline Phosphatase 132 U/L (38-126); Anion Gap 10 mmol/L (8-16); Aspartate Amino Transferase 20 U/L (14-36); Bilirubin,Total 0.3 mg/dL (0.2-1.3); Blood Urea Nitrogen 9 mg/dL (7-17); Carbon Dioxide 17 mmol/L (22-30); Chloride 105 mmol/L (98-107); Estimated Glomerular Filt Rate > 60; Glucose 144 mg/dL (65-110); Potassium 3.4 mmol/L (3.4-5.0); Sodium 132 mmol/L (137-145); Uric Acid 4.5 mg/dL (2.5-7.5)
--- NOTE | 2021-05-14 10:52 | PC.NURSE ---
Called Dr. Kumar with lab results, ultrasound report and BPs 138/96, 155/94, 152/97, 137/91. August D/C home.
== END 2021-05-15 07:01 | disposition home or self-care (01) ==
LOC: ANHOBOP 08:59
PROVIDERS: Student in an Organized Health Care Education/Training Program; Visit Provider Obstetrics & Gynecology
DX: Z11.4 Encounter for screening for human immunodeficiency virus [HIV] (principal); O14.93 Unspecified pre-eclampsia, third trimester; O41.03X0 Oligohydramnios, third trimester, not applicable or unspecified; Z3A.32 32 weeks gestation of pregnancy
CPT/HCPCS: 36415; 59025; 76815; 76816; 76819; 80053; 81001; 81003; 82570; 84156; 84550; 85025; 85027; 86592; 86703; 87086; G0432; J2795

== ENCOUNTER 2021-05-15 17:04 | Inpatient (IN) | payer OTHER, SELFPAY ==
[2021-05-15] VITALS (10 sets, daily range): BP systolic 132–157; BP diastolic 89–100; PULSE 76–87; BMI 38.4
--- NOTE | 2021-05-15 17:40 | LDADM ---
This patient, Aletha Bermudez, was admitted to Labor/Delivery/Recovery 109 on 05/15/21 at 17:04. Plans for labor, pain management and were discussed with patient. Patient/family oriented to hospital policies and general routines including ID bracelet, bed and alarms, visiting hours, pain management, procedures, bathroom and other care routines, personal items, smoking policy, room service/diet and guest tray routines, infant security routines, and visiting hours. Patient/Family are encouraged to report perceived risks to care and to ask questions if they do not understand what they are told or what they should do. See OBIX for further documentation.
[2021-05-15 18:13] LABS: Basophils Percent Auto 0.2 % (0.2-1.2); Eosinophils Absolute Auto 0.1 K/mm3 (0-0.3); Eosinophils Percent Auto 1.1 % (0-4.4); Hematocrit 35.2 % (37.0-47.0); Hemoglobin 12.1 g/dL (12.0-15.0); Immature Granulocyte Absolute 0.05 K/mm3 (0.00-0.031); Immature Granulocyte Percent A 0.6 % (0-0.5); Lymphocytes Absolute Auto 1.27 K/mm3 (0.9-3.2); Lymphocytes Percent Auto 15.3 % (18.3-44.2); Mean Corpuscular HGB Conc 34.4 g/dl (32-36); Mean Corpuscular Hemoglobin 30.6 pg (26-34); Mean Corpuscular Volume 89.1 fl (80-100); Mean Platelet Volume 10.7 fl (7.4-10.4); Monocytes Absolute Auto 0.5 K/mm3 (0.1-0.6); Monocytes Percent Auto 5.4 % (2.6-8.5); Neutrophils Absolute Auto 6.4 K/mm3 (1.3-6.7); Neutrophils Percent Auto 77.4 % (45.5-73.1); Platelet Count Result 168 k/mm3 (150-375); Red Blood Count 3.95 M/mm3 (4.2-5.4); Red Cell Distribution Width 14.5 % (11.5-14.5); White Blood Count 8.3 K/mm3 (4.5-10.0)
[2021-05-15 18:24] LABS: Alanine Aminotransferase 15 U/L (4-35); Albumin Level 3.7 g/dL (3.5-5.1); Alkaline Phosphatase 134 U/L (38-126); Anion Gap 8 mmol/L (8-16); Aspartate Amino Transferase 23 U/L (14-36); Bilirubin,Total 0.3 mg/dL (0.2-1.3); Blood Urea Nitrogen 10 mg/dL (7-17); Calcium 9.2 mg/dL (8.4-10.2); Carbon Dioxide 21 mmol/L (22-30); Chloride 106 mmol/L (98-107); Estimated CRCL calculation 107 ml/min; Estimated Glomerular Filt Rate > 60; Glucose 113 mg/dL (65-110); Potassium 3.8 mmol/L (3.4-5.0); Sodium 135 mmol/L (137-145); Uric Acid 4.6 mg/dL (2.5-7.5)
[2021-05-15] MEDS: DINOPROSTONE 10 MG VAG INSERT VAGINAL (18:36)
[2021-05-15] MEDS: LACTATED RINGERS 1,000 ML 125 ML IV CONT (19:04)
[2021-05-15] MEDS: AMPICILLIN 2 GM/NS 100 ML 2 GM/100 ML BAG IVPB (19:04)
[2021-05-15 19:10] LABS: Rubella IgG Antibody 16.1 IU/ML
[2021-05-15 19:11] LABS: Hepatitis B Surface Antigen Negative (Negative)
[2021-05-15] MEDS: AMPICILLIN 1 GM/NS 50 ML 1 GM/50 ML BAG IVPB (23:56)
[2021-05-16] VITALS (157 sets, daily range): BP systolic 96–179; BP diastolic 59–108; PULSE 67–145; RESP 18; TEMP 36.1–37.4; O2SAT 92–100
[2021-05-16] MEDS: fentaNYL CITRATE INJ (*CRX) 100 MCG/2 ML VIAL 50 MCG IV PUSH (01:39)
[2021-05-16] MEDS: fentaNYL CITRATE INJ (*CRX) 100 MCG/2 ML VIAL IV PUSH ×2 (04:29→09:39)
[2021-05-16] MEDS: AMPICILLIN 1 GM/NS 50 ML 1 GM/50 ML BAG IVPB ×3 (04:31→12:28)
[2021-05-16] MEDS: LACTATED RINGERS 1,000 ML 125 ML IV CONT ×2 (07:24→15:22)
[2021-05-16] MEDS: OXYTOCIN 30 UNITS/NS 500 ML 30 UNITS/500 ML BAG 6 UNITS IV CONT (07:24)
--- NOTE | 2021-05-16 09:56 | PM.IMHP ---
H&P: HPI History of Present Illness Date/Time: 05/16/21 09:56 Patient is a G1 at 37 weeks by LMP sure 08/29/2020 with an EDC 06/05/21 consistent with second trimester ultrasound, admitted for MIL for mild pre-eclampsia. She denies headache, scotomata or RUQ pain. She has been followed with serial surveillance and PIH labs. No signs or symptoms of severe disease. Labs reviewed. BT O neg. She did receive rhogam. GBS pos. Chief Complaint: Induction of labor Review of Systems Review of Systems: All systems reviewed & are unremarkable except as noted in HPI and below Constitutional: Constitutional: Reports no additional constitutional complaints and Denies headache(s) Eyes: Eyes: Denies spots in vision ENT: Reports system reviewed and no additional complaints, except as documented and Denies headache(s) Cardiovascular: Cardiovascular: Denies chest pain and Denies dyspnea Respiratory: Respiratory: Denies dyspnea Gastrointestinal: Gastrointestinal: Reports no additional gastrointestinal complaints Genitourinary: Genitourinary: Reports amenorrhea Musculoskeletal: Musculoskeletal: Reports no additional musculoskeletal complaints Integumentary/Breasts: Skin/Breast: Denies breast mass and Denies rash Neurologic: Denies headache(s) Psychiatric: Psychiatric: Reports no additional psychiatric complaints [facility] Past Medical History Medical History History of human papillomavirus infection No active medical problems Surgical History Surgical History No significant past surgical history Family History Family History Father Hypertension Heart disease Sibling Hypertension Grandparent Carcinoma of colon Lung cancer Ovarian cancer Social History Social History Smoking status: Never smoker Alcohol intake: current Substance use: never Spiritual care concerns: No Meds Home Medications and Allergies Home Medications Medication Instructions Recorded Confirmed Type prenat.vits,jesus,dhe-tosd-qczbi 1 tablet PO DAILY 12/26/20 05/03/21 History blood pressure monitor #1 ea 03/21/21 05/03/21 Rx cholecalciferol (vitamin D3) 25 mcg PO DAILY 04/13/21 05/03/21 History [Vitamin D3] ferrous sulfate [Slow Fe] 142 mg PO DAILY 04/13/21 05/03/21 History Allergies Allergy/AdvReac Type Severity Reaction Status Date / Time No Known Allergies Allergy Verified 05/08/21 12:02 Vital Signs Vital Signs - 24 hr 05/15/21 18:43 05/15/21 18:46 05/15/21 19:01 Temperature Pulse Rate 81 83 87 Blood Pressure 141/100 H 132/98 H 134/90 05/15/21 19:16 05/15/21 19:31 05/15/21 19:46 Temperature Pulse Rate 77 76 82 Blood Pressure 134/89 134/89 148/92 H 05/15/21 20:02 05/15/21 20:16 05/15/21 20:31 Temperature Pulse Rate 76 79 80 Blood Pressure 134/97 H 150/94 H 155/92 H 05/15/21 20:46 05/16/21 01:03 05/16/21 01:43 Temperature 98.9 F Pulse Rate 76 74 77 Blood Pressure 157/98 H 160/100 H 151/98 H 05/16/21 04:35 05/16/21 07:26 05/16/21 07:30 Temperature Pulse Rate 92 91 85 Blood Pressure 151/98 H 153/101 H 149/100 H 05/16/21 08:44 05/16/21 09:31 05/16/21 09:46 Temperature Pulse Rate 80 81 68 Blood Pressure 172/106 H 172/97 H 179/99 H Exam Const: General: no acute distress Eyes: General: appearance normal, both eyes and all related structures Resp: Effort & Inspection: normal respiratory effort Cardio: Rate: regular rate GI: Other: Gravid no fundal tenderness no right upper quadrant pain : External Female Exam: normal external appearance Other: cervix 3/60/-2 Skin: General skin exam: no rashes or lesions noted Neuro: Cognition (Neuro): normal cognition Extrem: General: normal to inspection Psych: Mental Status: menta
--- NOTE | 2021-05-16 10:11 | WPDANESEPP ---
Anes - Eval Pre Procedure Procedure: Labor Epidural Date/Time: 05/16/21 10:11 Surgeon: José Preop Diagnosis: Labor Pain Pre Op Diagnosis: IOL Patient Data Age: 36 Gender: F Height: 1.68 m Weight: 108 kg Last Vital Signs Temp 37.2 C 05/16/21 01:03 Pulse 75 05/16/21 10:01 BP 144/91 H 05/16/21 10:01 Allergies Allergy/AdvReac Type Severity Reaction Status Date / Time No Known Allergies Allergy Verified 05/08/21 12:02 Home Medications Medication Instructions Recorded Confirmed Type prenat.vits,jesus,cyi-cdpm-ttilj 1 tablet PO DAILY 12/26/20 05/03/21 History blood pressure monitor #1 ea 03/21/21 05/03/21 Rx cholecalciferol (vitamin D3) 25 mcg PO DAILY 04/13/21 05/03/21 History [Vitamin D3] ferrous sulfate [Slow Fe] 142 mg PO DAILY 04/13/21 05/03/21 History Laboratory Tests 05/15/21 05/15/21 05/15/21 17:35 17:35 17:35 WBC 8.3 K/mm3 K/mm3 (4.5-10.0) RBC 3.95 M/mm3 L M/mm3 (4.2-5.4) Hgb 12.1 g/dL g/dL (12.0-15.0) Hct 35.2 % L % (37.0-47.0) MCV 89.1 fl fl (80-100) MCH 30.6 pg pg (26-34) MCHC 34.4 g/dl g/dl (32-36) RDW 14.5 % % (11.5-14.5) Plt Count 168 k/mm3 k/mm3 (150-375) MPV 10.7 fl H fl (7.4-10.4) Immature Gran % (Auto) 0.6 % H % (0-0.5) Neut % (Auto) 77.4 % H % (45.5-73.1) Lymph % (Auto) 15.3 % L % (18.3-44.2) Esmeralda % (Auto) 5.4 % % (2.6-8.5) Eos % (Auto) 1.1 % % (0-4.4) Baso % (Auto) 0.2 % % (0.2-1.2) Lymph # (Auto) 1.27 K/mm3 K/mm3 (0.9-3.2) Esmeralda # (Auto) 0.5 K/mm3 K/mm3 (0.1-0.6) Eos # (Auto) 0.1 K/mm3 K/mm3 (0-0.3) Baso # (Auto) 0.0 K/mm3 K/mm3 (0.0-0.1) Abs Immat Gran (auto) 0.05 K/mm3 H K/mm3 (0.00-0.031) Absolute Neuts (auto) 6.4 K/mm3 K/mm3 (1.3-6.7) Absolute Nucleated RBC 0.0 K/mm3 K/mm3 (0.0-0.012) Nucleated RBC % 0.0 % % (0.0-0.2) Sodium Potassium Chloride Carbon Dioxide Anion Gap BUN Creatinine Estim Creat Clear Calc Estimated GFR Glucose Uric Acid Calcium Total Bilirubin AST ALT Alkaline Phosphatase Total Protein Albumin RPR Pending Hep Bs Antigen Rubella IgG Antibody 16.1 IU/ML IU/ML (10 - ) Blood Type Antibody Screen 05/15/21 05/15/21 05/15/21 17:35 17:35 17:36 WBC RBC Hgb Hct MCV MCH MCHC RDW Plt Count MPV Immature Gran % (Auto) Neut % (Auto) Lymph % (Auto) Esmeralda % (Auto) Eos % (Auto) Baso % (Auto) Lymph # (Auto) Esmeralda # (Auto) Eos # (Auto) Baso # (Auto) Abs Immat Gran (auto) Absolute Neuts (auto) Absolute Nucleated RBC Nucleated RBC % Sodium 135 mmol/L L mmol/L (137-145) Potassium 3.8 mmol/L mmol/L (3.4-5.0) Chloride 106 mmol/L mmol/L (98-107) Carbon Dioxide 21 mmol/L L mmol/L (22-30) Anion Gap 8 mmol/L mmol/L (8-16) BUN 10 mg/dL mg/dL (7-17) Creatinine 0.80 mg/dL mg/dL (0.7-1.0) Estim Creat Clear Calc 107 ml/min ml/min Estimated GFR > 60 (59 - ) Glucose 113 mg/dL H mg/dL (65-110) Uric Acid 4.6 mg/dL mg/dL (2.5-7.5) Calcium 9.2 mg/dL mg/dL (8.4-10.2) Total Bilirubin 0.3 mg/dL mg/dL (0.2-1.3) AST 23 U/L U/L (14-36) ALT 15 U/L U/L (4-35) Alkali
[2021-05-16] MEDS: PHENYLEPHRINE 1,000 MCG/10 ML SYRINGE 100 MCG IV PUSH ×3 (11:15→11:40)
[2021-05-16 12:12] LABS: Rapid Plasma Reagin Non-Reactive (NonReactive)
[2021-05-16] MEDS: SODIUM CHLORIDE 0.9% IV 300 ML 600 ML I-UTERINE (12:28)
--- NOTE | 2021-05-16 16:10 | PM.OBPNVD ---
OB - PN: Subj Subjective Date/time seen: 05/16/21 FHT 135 Cat 1, AROM clear, cervix /-2, continue Pitocin. OB - PN: Obj Data Labs CBC & Chem 7: 05/15/21 17:35 05/15/21 17:35 Labs: Laboratory Results - last 24 hr 05/15/21 05/15/21 05/15/21 17:35 17:35 17:35 WBC 8.3 RBC 3.95 L Hgb 12.1 Hct 35.2 L MCV 89.1 MCH 30.6 MCHC 34.4 RDW 14.5 Plt Count 168 MPV 10.7 H Immature Gran % (Auto) 0.6 H Neut % (Auto) 77.4 H Lymph % (Auto) 15.3 L [place] % (Auto) 5.4 Eos % (Auto) 1.1 Baso % (Auto) 0.2 Lymph # (Auto) 1.27 [place] # (Auto) 0.5 Eos # (Auto) 0.1 Baso # (Auto) 0.0 Abs Immat Gran (auto) 0.05 H Absolute Neuts (auto) 6.4 Absolute Nucleated RBC 0.0 Nucleated RBC % 0.0 Sodium Potassium Chloride Carbon Dioxide Anion Gap BUN Creatinine Estim Creat Clear Calc Estimated GFR Glucose Uric Acid Calcium Total Bilirubin AST ALT Alkaline Phosphatase Total Protein Albumin RPR Non-reactive Hep Bs Antigen Rubella IgG Antibody 16.1 Blood Type Antibody Screen 05/15/21 05/15/21 05/15/21 17:35 17:35 17:36 WBC RBC Hgb Hct MCV MCH MCHC RDW Plt Count MPV Immature Gran % (Auto) Neut % (Auto) Lymph % (Auto) [place] % (Auto) Eos % (Auto) Baso % (Auto) Lymph # (Auto) [place] # (Auto) Eos # (Auto) Baso # (Auto) Abs Immat Gran (auto) Absolute Neuts (auto) Absolute Nucleated RBC Nucleated RBC % Sodium 135 L Potassium 3.8 Chloride 106 Carbon Dioxide 21 L Anion Gap 8 BUN 10 Creatinine 0.80 Estim Creat Clear Calc 107 Estimated GFR > 60 Glucose 113 H Uric Acid 4.6 Calcium 9.2 Total Bilirubin 0.3 AST 23 ALT 15 Alkaline Phosphatase 134 H Total Protein 6.0 L Albumin 3.7 RPR Hep Bs Antigen Negative Rubella IgG Antibody Blood Type O Negative Antibody Screen Negative OB - PN A/P Time Spent With Patient Time: Total time spent is greater than 50% in coordination of care (as documented) at patient's floor/unit and/or counseling patient:
--- NOTE | 2021-05-16 16:12 | PM.OBPNVD ---
OB - PN: Subj Subjective Date/time seen: 05/16/21 1250 tracing reviwed, pt had epidural and late decelerations, pitocin stopped, blood pressures were lowered after epidural, she received phenylephrine, she also had IUPC placed for amnioinfusion for variable decelerations, decelerations improved. OB - PN: Obj Data Labs CBC & Chem 7: 05/15/21 17:35 05/15/21 17:35 Labs: Laboratory Results - last 24 hr 05/15/21 05/15/21 05/15/21 17:35 17:35 17:35 WBC 8.3 RBC 3.95 L Hgb 12.1 Hct 35.2 L MCV 89.1 MCH 30.6 MCHC 34.4 RDW 14.5 Plt Count 168 MPV 10.7 H Immature Gran % (Auto) 0.6 H Neut % (Auto) 77.4 H Lymph % (Auto) 15.3 L [place] % (Auto) 5.4 Eos % (Auto) 1.1 Baso % (Auto) 0.2 Lymph # (Auto) 1.27 [place] # (Auto) 0.5 Eos # (Auto) 0.1 Baso # (Auto) 0.0 Abs Immat Gran (auto) 0.05 H Absolute Neuts (auto) 6.4 Absolute Nucleated RBC 0.0 Nucleated RBC % 0.0 Sodium Potassium Chloride Carbon Dioxide Anion Gap BUN Creatinine Estim Creat Clear Calc Estimated GFR Glucose Uric Acid Calcium Total Bilirubin AST ALT Alkaline Phosphatase Total Protein Albumin RPR Non-reactive Hep Bs Antigen Rubella IgG Antibody 16.1 Blood Type Antibody Screen 05/15/21 05/15/21 05/15/21 17:35 17:35 17:36 WBC RBC Hgb Hct MCV MCH MCHC RDW Plt Count MPV Immature Gran % (Auto) Neut % (Auto) Lymph % (Auto) [place] % (Auto) Eos % (Auto) Baso % (Auto) Lymph # (Auto) [place] # (Auto) Eos # (Auto) Baso # (Auto) Abs Immat Gran (auto) Absolute Neuts (auto) Absolute Nucleated RBC Nucleated RBC % Sodium 135 L Potassium 3.8 Chloride 106 Carbon Dioxide 21 L Anion Gap 8 BUN 10 Creatinine 0.80 Estim Creat Clear Calc 107 Estimated GFR > 60 Glucose 113 H Uric Acid 4.6 Calcium 9.2 Total Bilirubin 0.3 AST 23 ALT 15 Alkaline Phosphatase 134 H Total Protein 6.0 L Albumin 3.7 RPR Hep Bs Antigen Negative Rubella IgG Antibody Blood Type O Negative Antibody Screen Negative OB - PN A/P Time Spent With Patient Time: Total time spent is greater than 50% in coordination of care (as documented) at patient's floor/unit and/or counseling patient:
--- NOTE | 2021-05-16 17:17 | PM.OBPRVD ---
OB - Delivery Note Procedure Delivery date: 05/16/21 Procedure: Spontaneous vaginal delivery events: Pre-Eclampsia Induction method: per misoprostol protocol Delivery augmentation: rupture of membranes and pitocin Delivery monitor: external FHT and internal uterine (IUPC placed for amnioinfusion due to variable decelerations) Route of delivery: Laceration Description: Vaginal - 1st Degree Delivery repair: vicryl (3.0 vicryl) Specimen: Yes (cord blood and cord gases) Quantitative Blood Loss (ml): 300 Anesthesia type: Epidural Disposition: floor Baby Date of : 05/16/21 Time of : 16:50 Weeks of gestation at delivery: 37 Infant gender: Male Weight (pounds): 6 Weight (ounces): 15 presentation: vertex position: Right Occiput Anterior Placenta delivery description: Spontaneous cord vessel description: Nuchal Cord, Loose and Reduced (manually) Narrative: Patient admitted on 05/15/21 for cervidil for MIL for mild pre-eclampsia. PIH labs normal. The morning of 05/16/21 the cervidil was removed and cervix was 3/60/-2. Pitocin was subsequently started. She had AROM clear. Labor course significant for late decelerations after epidural placed. She was given phenylephrine for the low blood pressures. Late decelerations improved. She did have intermittent mod to severe variables which improved with amnioinfusion for which an IUPC was placed. She progressed to complete. She pushed approximately six times and delivered a male infant vigorously crying. Loose nuchal cord manually reduced. Suctioned nose mouth at perineum and placed on maternal abdomen. The cord was a pulsatile approximately 45 seconds after delivery and the cord was doubly clamped and cut. Cord gases and cord blood obtained. The placenta delivered spontaneously and intact. There were trailing membranes and a small amount was removed from lower uterine segment. Uterine tone was good. She sustained a first degree vaginal laceration which was repaired with 3.0 vicryl figure of eight sutures. She tolerated procedure well. [facility] Delivery Billing Delivery Delivery: Delivery Charge
[2021-05-16] MEDS: OXYTOCIN 30 UNITS/NS 500 ML 30 UNITS/500 ML BAG 125 UNITS IV CONT (17:28)
[2021-05-16] MEDS: IBUPROFEN 600 MG TABLET PO (21:44)
[2021-05-17] VITALS (7 sets, daily range): BP systolic 118–156; BP diastolic 58–100; PULSE 68–93; RESP 18–20; TEMP 36.2–36.8; O2SAT 99
[2021-05-17 05:34] LABS: Hematocrit 31.1 % (37.0-47.0); Hemoglobin 10.7 g/dL (12.0-15.0)
--- NOTE | 2021-05-17 09:33 | WPDANLDPN2 ---
Anes-Prog Note L&D Date/Time: 05/17/21 09:33 Comfortable throughout: labor and delivery Neuraxial method: epidural Epidural/Spinal procedure site: clean & non-tender Neuro status: Neuro function grossly intact. Cardiovascular status: normal Respiratory status: normal Airway patency: baseline Mental status: baseline Post-Op hydration status: normal Vital Signs: Last Vital Signs Temp 36.2 C L 05/17/21 04:00 Pulse 86 05/17/21 04:00 Resp 18 05/17/21 04:00 BP 152/92 H 05/17/21 04:00 Pulse Ox 99 05/17/21 04:00 Pain score (VAS): 4 I/O: Intake & Output 05/16/21 05/17/21 05/17/21 23:59 07:59 15:59 Intake Total 200 Output Total 440 Balance -240 Post-procedural complaints: none Patient feedback: Patient satisfied with anesthetic care.
[2021-05-17] MEDS: DOCUSATE SODIUM 100 MG CAPSULE PO ×2 (10:05→18:10)
[2021-05-17] MEDS: BENZOCAINE 20% AER SPR (*SP) 56 GM CAN 1 SPRAY TOPICAL (10:05)
[2021-05-17] MEDS: WITCH HAZEL 40 PADS 1 PAD TOPICAL (10:05)
[2021-05-17] MEDS: IBUPROFEN 600 MG TABLET PO ×2 (10:06→18:10)
[2021-05-17] MEDS: MULTIVIT/MIN/PREN/FOL AC/IRON TABLET 1 TAB PO (10:06)
[2021-05-17] MEDS: LABETALOL HCL 100 MG TABLET 200 MG PO ×2 (10:07→21:19)
[2021-05-17 10:49] LABS: Basophils Percent Auto 0.3 % (0.2-1.2); Eosinophils Percent Auto 0.3 % (0-4.4); Hematocrit 32.2 % (37.0-47.0); Hemoglobin 10.7 g/dL (12.0-15.0); Immature Granulocyte Absolute 0.06 K/mm3 (0.00-0.031); Immature Granulocyte Percent A 0.7 % (0-0.5); Lymphocytes Absolute Auto 1.14 K/mm3 (0.9-3.2); Lymphocytes Percent Auto 13.2 % (18.3-44.2); Mean Corpuscular HGB Conc 33.2 g/dl (32-36); Mean Corpuscular Volume 93.3 fl (80-100); Mean Platelet Volume 10.8 fl (7.4-10.4); Monocytes Absolute Auto 0.4 K/mm3 (0.1-0.6); Monocytes Percent Auto 4.2 % (2.6-8.5); Neutrophils Percent Auto 81.3 % (45.5-73.1); Platelet Count Result 146 k/mm3 (150-375); Red Blood Count 3.45 M/mm3 (4.2-5.4); Red Cell Distribution Width 14.8 % (11.5-14.5); White Blood Count 8.6 K/mm3 (4.5-10.0)
[2021-05-17 11:11] LABS: Alkaline Phosphatase 105 U/L (38-126); Anion Gap 10 mmol/L (8-16); Aspartate Amino Transferase 27 U/L (14-36); Bilirubin,Total 0.5 mg/dL (0.2-1.3); Blood Urea Nitrogen 8 mg/dL (7-17); Calcium 8.6 mg/dL (8.4-10.2); Carbon Dioxide 19 mmol/L (22-30); Chloride 107 mmol/L (98-107); Estimated CRCL calculation 107 ml/min; Estimated Glomerular Filt Rate > 60; Glucose 156 mg/dL (65-110); Potassium 3.5 mmol/L (3.4-5.0); Sodium 136 mmol/L (137-145); Uric Acid 4.7 mg/dL (2.5-7.5)
[2021-05-17 11:12] LABS: Alanine Aminotransferase 26 U/L (4-35)
--- NOTE | 2021-05-17 13:57 | PC.NURSE ---
1000 - Introductions were made and mother led the discussion of her desires to feeding her baby. Reviewed handwashing to prevent infection before and after taking care of her baby. Mother verbalizes she is unable to latch infant. Baby is in the nursery for testing and assessment . Discussed how to watch for early feeding cues, place infant skin to skin, then feeding baby when is ready or every 2-3 hours. Mother voiced understanding to feed when she sees feeding cues, 8-12 times in 24 hours approximately every 2-3 hours from the start of the last feeding or she has discomfort with nursing. Pt voiced understanding of calling for assistance with latching . Reported to primary RN.
--- NOTE | 2021-05-17 15:54 | PM.OBPNVD ---
OB - PN: Subj Subjective Date/time seen: 05/17/21 0820 She states adequate pain control. No severe headache scotomata or RUQ pain. No leg pain. Mild lochia. Ambulating well. Patient comments: pain well controlled, tolerating diet and other (Decreasing lochia.) baby status: doing well feeding status: exclusively breast feeding OB - PN: Obj Data Labs CBC & Chem 7: 05/17/21 10:34 05/17/21 10:34 Labs: Laboratory Results - last 24 hr 05/17/21 05/17/21 05/17/21 04:40 04:40 10:34 WBC 8.6 RBC 3.45 L Hgb 10.7 L 10.7 L Hct 31.1 L 32.2 L MCV 93.3 MCH 31.0 MCHC 33.2 RDW 14.8 H Plt Count 146 L MPV 10.8 H Immature Gran % (Auto) 0.7 H Neut % (Auto) 81.3 H Lymph % (Auto) 13.2 L [place] % (Auto) 4.2 Eos % (Auto) 0.3 Baso % (Auto) 0.3 Lymph # (Auto) 1.14 [place] # (Auto) 0.4 Eos # (Auto) 0.0 Baso # (Auto) 0.0 Abs Immat Gran (auto) 0.06 H Absolute Neuts (auto) 7.0 H Absolute Nucleated RBC 0.0 Nucleated RBC % 0.0 Sodium Potassium Chloride Carbon Dioxide Anion Gap BUN Creatinine Estim Creat Clear Calc Estimated GFR Glucose Uric Acid Calcium Total Bilirubin AST ALT Alkaline Phosphatase Total Protein Albumin Blood Type O Negative Antibody Screen Negative Screen Negative Baby's Blood Type O pos Baby's SAURAV Negative Doses of RhIg Required 1 05/17/21 10:34 WBC RBC Hgb Hct MCV MCH MCHC RDW Plt Count MPV Immature Gran % (Auto) Neut % (Auto) Lymph % (Auto) [place] % (Auto) Eos % (Auto) Baso % (Auto) Lymph # (Auto) [place] # (Auto) Eos # (Auto) Baso # (Auto) Abs Immat Gran (auto) Absolute Neuts (auto) Absolute Nucleated RBC Nucleated RBC % Sodium 136 L Potassium 3.5 Chloride 107 Carbon Dioxide 19 L Anion Gap 10 BUN 8 Creatinine 0.80 Estim Creat Clear Calc 107 Estimated GFR > 60 Glucose 156 H Uric Acid 4.7 Calcium 8.6 Total Bilirubin 0.5 AST 27 ALT 26 Alkaline Phosphatase 105 Total Protein 5.0 L Albumin 3.0 L Blood Type Antibody Screen Screen Baby's Blood Type Baby's SAURAV Doses of RhIg Required OB - PN A/P Assessment and Plan (1) Delivery normal: Code(s): O80 - Encounter for full-term uncomplicated delivery Status: Acute Assessment and Plan: Routine care. (2) hypertension: Code(s): O16.5 - Unspecified maternal hypertension, complicating the puerperium Status: Acute Assessment and Plan: No symptoms of pre-eclampsia. Will check labs. Will start on Labetolol. Plan day: 1 Plan: routine care Comments: Patient doing well. Time Spent With Patient Time: Total time spent is greater than 50% in coordination of care (as documented) at patient's floor/unit and/or counseling patient: Exam Psych: Affect: normal affect Other: Abd: fundus firm below umbilicus, nontender Perineum: healing Ext: nontender
[2021-05-17] MEDS: RHO(D) IMMUNE GLOBULIN 300 MCG/2 ML SYRINGE IM (18:11)
[2021-05-18] VITALS: BP 129/77; PULSE 84; RESP 18; TEMP 36.9
[2021-05-18 04:45] VITALS: BP 128/86; PULSE 89; RESP 18; TEMP 36.5
--- NOTE | 2021-05-18 08:15 | PM.OBPNVD ---
OB - PN: Subj Subjective Date/time seen: 05/18/21 08:15 No severe headache scotomata or RUQ pain. Ambulating well. Patient comments: pain well controlled, tolerating diet and other (Decreasing lochia.) baby status: doing well OB - PN: Obj Data Labs CBC & Chem 7: 05/17/21 10:34 05/17/21 10:34 Labs: Laboratory Results - last 24 hr 05/17/21 05/17/21 05/17/21 04:40 10:34 10:34 WBC 8.6 RBC 3.45 L Hgb 10.7 L Hct 32.2 L MCV 93.3 MCH 31.0 MCHC 33.2 RDW 14.8 H Plt Count 146 L MPV 10.8 H Immature Gran % (Auto) 0.7 H Neut % (Auto) 81.3 H Lymph % (Auto) 13.2 L [place] % (Auto) 4.2 Eos % (Auto) 0.3 Baso % (Auto) 0.3 Lymph # (Auto) 1.14 [place] # (Auto) 0.4 Eos # (Auto) 0.0 Baso # (Auto) 0.0 Abs Immat Gran (auto) 0.06 H Absolute Neuts (auto) 7.0 H Absolute Nucleated RBC 0.0 Nucleated RBC % 0.0 Sodium 136 L Potassium 3.5 Chloride 107 Carbon Dioxide 19 L Anion Gap 10 BUN 8 Creatinine 0.80 Estim Creat Clear Calc 107 Estimated GFR > 60 Glucose 156 H Uric Acid 4.7 Calcium 8.6 Total Bilirubin 0.5 AST 27 ALT 26 Alkaline Phosphatase 105 Total Protein 5.0 L Albumin 3.0 L Blood Type O Negative Antibody Screen Negative Screen Negative Baby's Blood Type O pos Baby's SAURAV Negative Doses of RhIg Required 1 OB - PN A/P Assessment and Plan (1) hypertension: Code(s): O16.5 - Unspecified maternal hypertension, complicating the puerperium Status: Acute Assessment and Plan: Blood pressures stable on medication. No signs or symptoms of pre-eclampsia. Discharge to home with pre-eclamptic precautions and antihypertensive medication. Plan day: 1 Plan: routine care Comments: Patient doing well. Time Spent With Patient Time: Total time spent is greater than 50% in coordination of care (as documented) at patient's floor/unit and/or counseling patient: Exam Psych: Affect: normal affect Other: Abd: fundus firm below umbilicus, nontender Perineum: healing Ext: nontender
--- NOTE | 2021-05-18 08:17 | PM.OBDSVD ---
DS: Admitting Diagnosis Discharge Date 05/18/2021 Admitting Diagnosis Mild pre-eclampsia. 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 Admission pre-e labs normal. She had subsequent pitocin. Blood pressures improved after adequate pain control in labor. She had an uncomplicated vaginal delivery. her blood pressures were elevated. No pre-eclamptic symptoms.Repeat PIH labs normal. She was started on Labetolol. Blood pressures improved. She was discharged to home with post delivery precautions and hypertension precautions. OB Procedures : NST, PIH Mgmt and Ultrasound OB Procedures Intrapartum: Spontaneous Vag Delivery OB Procedures: : None Peripartum Data Infant Delivery Method: Natural Vaginal Laceration Description: Perineal - 1st Degree complications: none Status at Discharge Functional status at discharge: independent ambulation Time Spent with Patient Time attestation: Total time spent providing and/or coordinating discharge services: Exam Const: General: cooperative Orientation/consciousness: oriented to person, oriented to place and oriented to time HENMT: General nose exam: Normal external nose present Eyes: General: appearance normal, both eyes and all related structures Resp: Effort & Inspection: normal respiratory effort GI: Inspection: normal to inspection : External Female Exam: normal external appearance Other: perineum introitus no signs of infection Skin: General skin exam: normal color Neuro: General: oriented to person, oriented to place and oriented to time Extrem: General: normal to inspection and no calf tenderness Psych: Appearance: grossly normal Mental Status: mental status grossly normal DS: Data Data Completed and Pending Labs on day of discharge: Labs from last 24 hours 05/17/21 05/17/21 05/17/21 10:34 10:34 04:40 WBC 8.6 RBC 3.45 L Hgb 10.7 L Hct 32.2 L MCV 93.3 MCH 31.0 MCHC 33.2 RDW 14.8 H Plt Count 146 L MPV 10.8 H Immature Gran % (Auto) 0.7 H Neut % (Auto) 81.3 H Lymph % (Auto) 13.2 L [place] % (Auto) 4.2 Eos % (Auto) 0.3 Baso % (Auto) 0.3 Lymph # (Auto) 1.14 [place] # (Auto) 0.4 Eos # (Auto) 0.0 Baso # (Auto) 0.0 Abs Immat Gran (auto) 0.06 H Absolute Neuts (auto) 7.0 H Absolute Nucleated RBC 0.0 Nucleated RBC % 0.0 Sodium 136 L Potassium 3.5 Chloride 107 Carbon Dioxide 19 L Anion Gap 10 BUN 8 Creatinine 0.80 Estim Creat Clear Calc 107 Estimated GFR > 60 Glucose 156 H Uric Acid 4.7 Calcium 8.6 Total Bilirubin 0.5 AST 27 ALT 26 Alkaline Phosphatase 105 Total Protein 5.0 L Albumin 3.0 L Blood Type O Negative Antibody Screen Negative Screen Negative Baby's Blood Type O pos Baby's SAURAV Negative Doses of RhIg Required 1 Discharge Plan Discharge Attending physician on discharge: Omero Kumar Consulting providers: June Mendez Discharging Clinician: Omero Kumar Anticipated Discharge Date/Time: 05/18/21 08:23 Patient Disposition: Home, Self-Care Activity: may shower and pelvic rest Diet: regular Discharge Instructions: Pelvic rest for 4-6 weeks. May take over the counter Ibuprofen or Tylenol for pain. Call if saturating more than a pad an hour, leg redness, pain and swelling
[2021-05-18 08:30] VITALS: BP 139/91; PULSE 90; RESP 18; TEMP 36.3; O2SAT 99
[2021-05-18] MEDS: LABETALOL HCL 100 MG TABLET 200 MG PO (09:05)
[2021-05-18] MEDS: MULTIVIT/MIN/PREN/FOL AC/IRON TABLET 1 TAB PO (09:05)
[2021-05-18] MEDS: DOCUSATE SODIUM 100 MG CAPSULE PO (09:05)
--- NOTE | 2021-05-18 10:00 | PC.NURSE ---
Patient viewed the discharge video Mother & Baby Care, The First Two Weeks . Patient was given the opportunity and encouraged to ask questions. Patient verbalized understanding of information shared and has been given the mother/baby guide for home reference.
[2021-05-18] MEDS: HYDROCORTISONE/PRAMOX 1% FOAM 10 GM CAN 1 APPLIC RECTAL (10:15)
--- NOTE | 2021-05-18 11:31 | PC.NURSE ---
8615 - Mother led the conversation with regards to her experience and plan for feeding her baby. Reminded parents to use good handwashing to prevent infection. Infant has had adequate feedings in the past 24 hours and meets the outcomes for weight, output and jaundice. Mother states she feels confident to continue attempting effective latching with /pumping/supplementing her infant at home. Mom has pumped 5cc of colostrum to feed to her baby. Her nipples are bilaterally red and tender. Mom states baby doesn't get a great latch every time. Reinforced teaching of 140 latch, positioning, suck/swallow ratios, rocking motion, asymmetrical latch and that there is to be no pain. It might be tender at first due to soreness but after the initial latch there is to not be discomfort. Assisted mother with infant to the right breast using cross cradle without an effective latch, then moved to football position and had effective with no discomfort, then infant detaching after 7 min. the nipple was not misshaped. Reviewed production of human milk, transition of milk, signs of adequate intake and engorgement prevention/relief and when to call the care provider using the mom and baby guide as reinforcing education. Reviewed medications mother is taking with information provided by [facility], community resources and outpatient services as listed in the mom and baby guide/[facility] website. Reinforced watching for feeding cues with responsive feeding and how to stimulate infant to initiate feeding three hours from the start of the last feeding. Mother voiced understanding of information shared. Reported to primary RN.
[2021-05-18 12:08] VITALS: BP 123/84; PULSE 89; RESP 16; TEMP 36.6; O2SAT 98
[2021-05-21 10:36] VITALS: BP 137/86; PULSE 79; RESP 20; TEMP 37.2; O2SAT 98
== END 2021-05-18 12:47 | disposition home or self-care (01) | DRG 807 ==
LOC: ANHLDR 05-16 12:50 → ANHOB2 05-16 22:49
PROVIDERS: Admitting Provider Obstetrics & Gynecology; Visit Provider Obstetrics & Gynecology
DX: O14.04 Mild to moderate pre-eclampsia, complicating childbirth (principal); Z37.0 Single live birth; O13.4 Gestational [pregnancy-induced] hypertension without significant proteinuria, complicating childbirth; O99.824 Streptococcus B carrier state complicating childbirth; O76 Abnormality in fetal heart rate and rhythm complicating labor and delivery; O70.1 Second degree perineal laceration during delivery; O69.81X0 Labor and delivery complicated by cord around neck, without compression, not applicable or unspecified; Z3A.37 37 weeks gestation of pregnancy
CPT/HCPCS: 36415; 59025; 76815; 80053; 84550; 85014; 85018; 85025; 85461; 86592; 86762; 86850; 86900; 86901; 87340; 90384; A9270; J0290; J2370; J2590; J2790; J2795; J3010; J7030; J7120

== ENCOUNTER 2022-01-09 12:12 | Outpatient (CLI) | payer OTHER, SELFPAY ==
[2022-01-09 12:42] LABS: Hemoglobin A1C 4.8 % (<5.7)
[2022-01-12 07:11] LABS: FSH 7.8 mIU/mL (***); LH 6.8 mIU/mL (***)
[2022-01-15 07:28] LABS: Testosterone Free 3.1 pg/mL (0.1-6.4); Testosterone Total 24 ng/dL (2-45)
== END 2022-01-09 12:13 | disposition home or self-care (01) ==
LOC: ANHLAB 12:13
PROVIDERS: Visit Provider Obstetrics & Gynecology
DX: L68.0 Hirsutism (principal); R63.5 Abnormal weight gain
CPT/HCPCS: 36415; 83001; 83002; 83036; 84402; 84403; 84439; 84443

== ENCOUNTER 2023-06-25 09:36 | Outpatient (RCR) | payer OTHER, SELFPAY ==
[2023-06-23 11:17] LABS: Beta HCG Quantitative 87.85 mIU/ML
[2023-06-26 07:11] LABS: Progesterone 0.7 ng/mL (***)
[2023-06-26] MEDS: RHO(D) IMMUNE GLOBULIN 300 MCG/2 ML SYRINGE IM (16:27)
== END 2023-09-21 23:59 | disposition home or self-care (01) ==
LOC: ANHLAB 09:36
PROVIDERS: Visit Provider Nurse Practitioner Family
DX: O26.859 Spotting complicating pregnancy, unspecified trimester (principal); Z3A.00 Weeks of gestation of pregnancy not specified
CPT/HCPCS: 36415; 84144; 84702; 85461; 86850; 86900; 86901; 90384; 96372; J2790

== ENCOUNTER 2023-06-25 09:40 | Outpatient (CLI) | payer OTHER, SELFPAY ==
[2023-06-25 10:50] LABS: Beta HCG Quantitative 28.98 mIU/ML
== END 2023-06-25 09:41 | disposition home or self-care (01) ==
LOC: ANHLAB 09:41
PROVIDERS: Visit Provider Nurse Practitioner Family
DX: O26.859 Spotting complicating pregnancy, unspecified trimester (principal); Z3A.00 Weeks of gestation of pregnancy not specified
CPT/HCPCS: 36415; 84702

== ENCOUNTER 2023-07-04 12:16 | Outpatient (CLI) | payer OTHER, SELFPAY ==
[2023-07-04 13:33] LABS: Beta HCG Quantitative < 2.39 mIU/ML
== END 2023-07-04 12:17 | disposition home or self-care (01) ==
LOC: ANHLAB 12:17
PROVIDERS: Visit Provider Nurse Practitioner Family
DX: O03.9 Complete or unspecified spontaneous abortion without complication (principal)
CPT/HCPCS: 36415; 84702

== ENCOUNTER 2024-03-10 11:35 | Outpatient (CLI) | payer OTHER, SELFPAY ==
--- NOTE | ~2024-03-10 | US_ITS ---
EXAMINATION: US OB <=14 wk fetus w TV DATE: 03/10/2024 12:02 INDICATION: Amenorrhea TECHNIQUE: Real-time pelvic ultrasound utilizing both a transvaginal and transabdominal probe was pe rformed. The interpreting radiologist was not present for the study. COMPARISON: None. FINDINGS: The uterus measures 10.8 x 7.0 x 9.1 cm. There is an intrauterine gestational sac. A yolk sac and fe craig pole are identified. The crown rump length measures 2.5 cm, which correlates with an estimated ge stational age of 9 weeks and 1 days. heart motion is identified measuring 176 beats per minute (bpm) by M-mode Doppler. There is a 3.0 x 1.9 x 0.3 cm anechoic to hypoechoic small subchorionic patricia nasreen along side the gestational sac. The right ovary measures 2.7 x 1.5 x 2.7 cm. The left ovary measures 2.5 x 1.4 x 2.1 cm. There is no free fluid in the pelvis. IMPRESSION: 1. Single living fetus with heart rate of 176 bpm. 2. Gestational age by ultrasound of 9 weeks 1 day(s) +/- 6 day(s) with ultrasound estimated date of delivery (NINFA) of 10/12/2024. Reviewed, dictated and finalized at location B. [facility] [employer]IVER IMPRESSION: 1. Single living fetus with heart rate of 176 bpm. 2. Gestational age by ultrasound of 9 weeks 1 day(s) +/- 6 day(s) with ultraso und estimated date of delivery (NINFA) of 10/12/2024.
== END 2024-03-10 11:36 | disposition home or self-care (01) ==
LOC: MICIMG 11:36
PROVIDERS: PCP Nurse Practitioner Family; Visit Provider Nurse Practitioner Obstetrics & Gynecology
DX: N91.2 Amenorrhea, unspecified (principal)
CPT/HCPCS: 76801; 76817

== ENCOUNTER 2024-03-26 09:51 | Outpatient (CLI) | payer OTHER, SELFPAY ==
[2024-03-26 10:26] LABS: Add Urine Microscopic? YES; Appearance Urine Cloudy (Clear); Bacteria Urine Rare /hpf; Bilirubin Urine Negative (Negative); Blood Urine Trace (Negative); Color Urine Yellow (Yellow); Glucose Urine UA Negative (Negative); Ketones Urine Negative (Negative); Leukocyte Esterase Ur 1+ LEU/UL (Negative); Nitrate Urine Negative (Negative); Non Pathogenic Casts 0-2; Protein Urine Trace mg/dL (Negative); Specific Grav Ur 1.022 (1.001-1.035); Squamous Epithelial Cell Urine Few /hpf (Few); Urobilinogen Urine 0.2 mg/dL (<2.0); pH Urine 5.5 (5.0-9.0)
[2024-03-26 10:32] LABS: Alanine Aminotransferase 27 U/L (6-35); Albumin Level 4.7 g/dL (3.5-5.1); Alkaline Phosphatase 56 U/L (38-126); Anion Gap 7 mmol/L (4-12); Aspartate Amino Transferase 28 U/L (14-36); Bilirubin,Total 0.9 mg/dL (0.2-1.3); Blood Urea Nitrogen 9 mg/dL (7-17); Calcium 9.5 mg/dL (8.4-10.2); Carbon Dioxide 27 mmol/L (22-30); Chloride 103 mmol/L (98-107); Estimated Glomerular Filt Rate > 60; Glucose 89 mg/dL (65-110); Potassium 3.4 mmol/L (3.4-5.0); Sodium 137 mmol/L (137-145)
[2024-03-26 10:48] LABS: Basophils Percent Auto 0.6 % (0.2-1.2); Eosinophils Absolute Auto 0.2 K/mm3 (0-0.3); Eosinophils Percent Auto 3.3 % (0-4.4); Hematocrit 38.9 % (37.0-47.0); Immature Granulocyte Absolute 0.03 K/mm3 (0.00-0.031); Immature Granulocyte Percent A 0.5 % (0-0.5); Lymphocytes Absolute Auto 0.91 K/mm3 (0.9-3.2); Lymphocytes Percent Auto 14.3 % (18.3-44.2); Mean Corpuscular HGB Conc 33.4 g/dl (32-36); Mean Corpuscular Hemoglobin 29.3 pg (26-34); Mean Corpuscular Volume 87.8 fl (80-100); Mean Platelet Volume 10.2 fl (7.4-10.4); Monocytes Absolute Auto 0.4 K/mm3 (0.1-0.6); Neutrophils Absolute Auto 4.8 K/mm3 (1.3-6.7); Neutrophils Percent Auto 75.3 % (45.5-73.1); Platelet Count Result 168 k/mm3 (150-375); Red Blood Count 4.43 M/mm3 (4.2-5.4); Red Cell Distribution Width 12.9 % (11.5-14.5); White Blood Count 6.4 K/mm3 (4.5-10.0)
[2024-03-26 11:22] LABS: HIV 1/2 Ab P24 Ag Result Negative (Negative)
[2024-03-26 11:29] LABS: Hepatitis B Surface Antigen Negative (Negative); Rubella IgG Antibody 42.1 IU/ML
[2024-03-26 11:45] LABS: Hepatitis C Virus Antibody Negative (Negative)
[2024-03-26 12:15] LABS: Rapid Plasma Reagin Non-Reactive (NonReactive)
[2024-03-29 12:08] LABS: Hematocrit 40.9 % (35.0-45.0); Hemoglobin 13.4 g/dL (11.7-15.5); MCH 30.6 pg (27.0-33.0); MCV 93.4 fL (80.0-100.0); Red Blood Cell Count 4.38 Million/uL (3.80-5.10)
== END 2024-03-26 09:52 | disposition home or self-care (01) ==
LOC: ANHLAB 09:53
PROVIDERS: PCP Nurse Practitioner Family; Visit Provider Obstetrics & Gynecology
DX: Z34.90 Encounter for supervision of normal pregnancy, unspecified, unspecified trimester (principal); I10 Essential (primary) hypertension; Z3A.00 Weeks of gestation of pregnancy not specified
CPT/HCPCS: 36415; 80053; 81001; 83021; 84443; 85025; 86592; 86703; 86762; 86787; 86803; 86850; 86900; 86901; 87086; 87340; G0432

== ENCOUNTER 2024-03-29 15:17 | Outpatient (CLI) | payer OTHER, SELFPAY ==
--- NOTE | 2024-03-29 15:31 | ECG_ITS ---
Test Date: 2024-03-29 15:43:01 Measurements Intervals [place] Rate: 72 P: 49 [place]: 175 QRS: 24 QRSD: 92 T: 50 QT: 393 QTc: 430 Interpretive Statements SINUS RHYTHM No previous ECG available for comparison Electronically Signed On 03-30-2024 14:46:11 [employer] by Loreta Choudhury M.D.
== END 2024-03-29 15:18 | disposition home or self-care (01) ==
LOC: ANHCARD 15:19
PROVIDERS: PCP Nurse Practitioner Family; Visit Provider Obstetrics & Gynecology
DX: I10 Essential (primary) hypertension (principal)
CPT/HCPCS: 93005

== ENCOUNTER 2024-07-09 11:29 | Outpatient (RCR) | payer OTHER, SELFPAY ==
--- OUTSIDE RECORDS SUMMARY | 2024-07-09 12:44 | XMS_ITS | Clinical Summary ---
Author Organization [facility] Address [address] [place] [phone] Phone Care Team Providers Care Cost Recorder Name Role Phone Unavailable Primary Care Provider Unavailabl e Allergies No known active allergies Medications VIT-IRON FUM-FOLIC AC ORAL Take by mouth. Active calcium citrate 250 mg calcium Tablet Take 250 mg by mouth daily. Active ferrous sulfate (Slow Fe) 142 mg (45 mg iron) Tablet Sustained Release Take 142 mg by mouth. Active Active Problems Problem Noted Date Diagnosed Date Mild pre-eclampsia in third trimester 04/30/2021 Encounters Date Type Department Care Team Description 07/07/2024 External Device Data STL ABSTRACTION Provider, Abstract 07/07/2024 External Device Data STL ABSTRACTION Provider, Abstract 06/26/2024 External Device Data STL ABSTRACTION Provider, Abstract 06/26/2024 External Device Data STL ABSTRACTION Provider, Abstract 06/23/2024 External Device Data STL ABSTRACTION Provider, Abstract 06/09/2024 External Device Data STL ABSTRACTION Provider, Abstract 05/27/2024 10:28 AM OPERATIONS LEAD - 05/27/2024 11:59 PM OPERATIONS LEAD Hospital Encounter [facility] [address] [place] [address] Domonique Monet MD Discharge Disposition: Home or Self Care 05/19/2024 External Device Data STL ABSTRACTION Provider, Abstract 05/13/2024 External Device Data STL ABSTRACTION Provider, Abstract 04/13/2024 External Device Data STL ABSTRACTION Provider, Abstract from Last 3 Months Social History Tobacco Use Types Packs/Day Years Used Date Smoking Tobacco: Former Cigarettes 0.5 10 1 06/13/2006 - 04/12/2017 Smokeless Tobacco: Never Alcohol Use Standard Drinks/Week Comments Not Currently 0 (1 standard drink = 0.6 oz pur e alcohol) Comments No Sex and Gender Information Value Date Recorded Sex Assigned at Not on file Legal Sex Female 7:09 AM CDT Gender Identity Not on file Sexual Orientation Not on file Last Filed Vital Signs Vital Sign Reading Time Taken Comments Blood Pressure 120/88 04/12/2021 3:10 PM OPERATIONS LEAD Pulse 87 04/12/2021 3:10 PM OPERATIONS LEAD Temperature - - Respiratory Rate - - Oxygen Saturation 99% 04/12/2021 3:10 PM OPERATIONS LEAD Inhaled Oxygen Concentration - - Weight 106.4 kg (234 lb 9.6 oz) 04/12/2021 3:10 PM OPERATIONS LEAD Height 170.2 cm (5' 7) 04/12/2021 3:10 PM OPERATIONS LEAD Body Mass Index 36.74 04/12/2021 3:10 PM OPERATIONS LEAD Plan of Treatment Upcoming Encounters Date Type Department Care Team (Late st Contact Info) Description 07/15/2024 2:30 PM CDT Appointment [facility] [address] [place] [address] Brianne Chappell MD [address] [place] [phone] Health Maintenance Due Date Last Done Comments DTAP/TDAP/TD VACCINES (1 - Tdap) 2006 HEPATITIS B VACCINES (1 of 3 - 19+ 3-dose series) 2006 PAP SMEAR 2017 INFLUENZA VACCINE (#1) 2023 02/09/2020 Preventative Visit- Commercial 2024 02/09/2020, 03/30/2018, 03/25/2017, Additional history exists HPV VACCINES Aged Out No longer eligi ble based on patient's age to complete this topic Procedures Procedure Name Priority Date/Time Associated Diagnosis Comments US OB DETAIL SINGLE GEST Routine 05/27/2024 11:28 AM OPERATIONS LEAD Multigravida of advanced maternal age in first trimester from Last 3 Months Results * US OB DETAIL SINGLE GEST (05/27/2024 11:28 AM OPERATIONS LEAD) Anatomical Region Laterality Modality Pelvis Ultrasound 05/27/2024 10:3 9 AM OPERATIONS LEAD Narrative 05/27/2024 11:34 AM OPERATIONS LEAD STL COMP ----- Name: ALETHA BERMUDEZ Study Date: 05/27/2024 10:39am Pat. NO: [id number] Referring MD: ELIZABETH BILLY MD Site: [facility] [employer] [facility] [employer] Insurance: Zeynep Sheehan RDMS : 1985 Age: 39 ----- INDICATION ----- Anatomy Survey Personal History of Other Complications H/o preE Chronic Hypertension (HTN) hydrochlorothiazide Depression sertraline Advanced Maternal Age (AMA), Multigravida CODING ----- Diagnoses Z3A.20: Weeks of gestation O09.522: Supervision of elderly multigravida O99.342: Other mental disorders complicating O10.012: Pre-existing essential hypertension complicating Z87.59: Personal history of other complications of , childbirth and the puerperium Z36.3: Encounter for screening for malformations Procedures 14331: Ultrasound, uterus, real time with image documentation, and maternal evaluation plus detailed anatomic examination, transabdominal approach HISTORY ----- OB History 1 METHOD ----- Transabdominal ultrasound examination ----- Ramírez . Number of fetuses: 1 DATING ----- GA by prior assessment 20 w + 6 d NINFA by prior assessment: 10/08/2024 Ultrasound examination on: 05/27/2024 GA by U/S based upon: AC, BPD, EFW, Femur, HC GA by U/S 21 w + 0 d NINFA by U/S: 10/07/2024 Method of dating: Restore dating from previous exam Assigned: based on stated NINFA, selected on 04/06/2024 Assigned GA 20 w + 6 d Assigned NINFA: 10/08/2024 BIOMETRY ----- BPD 47.4 mm 20w 2d 28% Hadlock OFD 63.6 mm 21w 5d 77% Caro HC 178.2 mm 20w 2d 18% Hadlock Cerebellum tr 22.1 mm 21w 4d 60% Casillas Nuchal fold 4.1 mm AC 161.5 mm 21w 2d 56% Hadlock Femur 36.9 mm 21w 5d 72% Hadlock Humerus 31.5 mm 20w 4d 33% Caro HC / AC 1.10 14% Nicolaides Weight Calculation: EFW 414 g 21w 1d 68% Hadlock EFW (lb,oz) 0 lb 15 oz EFW by [facility] ([id number]) Head / Face / Neck Biometry: Lithographic Platemaker 5.8 mm CM 2.3 mm <1% Nicolaides Inner IOD 12.6 mm Extremities / Bony Struc Biometry: FL / BPD 0.78 93% Hadlock FL / HC 0.21 97% Hadlock FL / AC 0.23 69% Hadlock Tibia 29.2 mm 20w 5d 44% [facility] GENERAL EVALUATION ----- Cardiac activity present. FHR 134 bpm. movements: present. Presentation: cephalic Placenta: Placental site: anterior Umbilical cord: Cord vessels: 3 vessel cord. Insertion site: placental insertion: normal Amniotic fluid: Amount of AF: normal amount. MVP 5.9 cm ANATOMY ----- The following structures appear normal: Head / Neck Cranium. Lateral ventricles. Choroid plexus. Midline falx. Cavum septi pellucidi. Cerebellum. Cisterna magna. Thalami. Nuchal fold. Face Lips. Profile. Nose. Palate. Orbits. Heart / Thorax 4-chamber view. RVOT view. LVOT view. 3-vessel view. 0-yakarj-vxwgnqq view. Situs. Aortic arch view. Ductal arch view. Superior vena cava. Inferior vena cava. High short axis view. Cardiac rhythm. Diaphragm. Abdomen Abdominal wall. Cord insertion. Stomach. Kidneys. Bladder. Genitals. Spine Cervical spine. Thoracic spine. Lumbar spine. Sacral spine. Extremities / Arms. Right hand. Left hand. Legs. Right foot. Left foot. Skeleton sex: female. MATERNAL STRUCTURES ----- Cervix Visualized Approach - Transabdominal: Cervical length 37.5 mm Right Ovary Normal Size 40 mm x 42 mm x 16 mm. Vol 13.8 cm Left Ovary Normal Size 34 mm x 32 mm x 14 mm. Vol 7.6 cm GROWTH OVERVIEW ----- Exam date GA BPD (mm) HC (mm) AC (mm) FL (mm) HL (mm) EFW (g) 05/27/2024 20w 6d 47.4 28% 178.2 18% 161.5 56% 36.9 72% 31.5 33% 414 68% COMMENT ----- Patient's name and date of were verified by the farm operations manager before the exam IMPRESSION ----- IUP at 20w 6d AGA growth with EFW 414 g (68%) No major structural malformations are identified within the limits of ultrasound. No soft markers of aneuploidy are visualized. Normal amniotic fluid volume, MVP 5.9 cm Normal cervical length, 37.5 mm Placenta is anterior with no previa Recommendations: - Recommend serial growth every 4 weeks at 28 weeks Procedure Note Alyson Bush MD - 05/27/2024 STL COMP ----- Pat. Name:Michael BERMUDEZ Date:05/27/2024 10:39am Pat. NO: [id number] MD:ELIZABETH BILLY MD Site:[facility]:Zeynep Sheehan RDMS :1985Age:39 ----- INDICATION ----- Anatomy Survey Personal History of Other Complications H/o preE Chronic Hypertension (HTN) hydrochlorothiazide Depression sertraline Advanced Maternal Age (AMA), Multigravida CODING ----- Diagnoses Z3A.20: Weeks of gestation O09.522: Supervision of elderly multigravida O99.342: Other mental disorders complicatingpregnancy O10.012: Pre-existing essential hypertensioncomplicating Z87.59: Personal history of other complications ofpregnancy, childbirth and the puerperium Z36.3: Encounter for screening formalformations Procedures 11161: Ultrasound, uterus, real time withimage documentation, and maternal evaluation plus detailed anatomic examination,transabdominal approach HISTORY ----- OB History 1 METHOD ----- Transabdominal ultrasound examination ----- Ramírez . Number of fetuses: 1 DATING ----- GA by prior [id number] w + 6 d NINFA by prior assessment:10/08/2024 Ultrasound examination on:05/27/2024 GA by U/S based upon:AC, BPD, EFW, Femur, HC GA by U/S21 w + 0 d NINFA by U/S:10/07/2024 Method of dating:Restore dating from previous exam Assigned:based on stated NINFA, selected on 04/06/2024 Assigned GA20 w + 6 d Assigned NINFA:10/08/2024 BIOMETRY ----- BPD 47.4 mm 20w 2d28% Hadlock OFD 63.6 mm 21w 5d77% Caro HC 178.2 mm 20w 2d18% Hadlock Cerebellum tr 22.1 mm 21w 4d60% Casillas Nuchal fold 4.1 mm AC 161.5 mm 21w 2d56% Hadlock Femur 36.9 mm 21w 5d72% Hadlock Humerus 31.5 mm 20w 4d33% Caro HC / AC 1.10 14%Nicolaides Weight Calculation: EFW 414 g 21w 1d 68%Hadlock EFW (lb,oz) 0 lb 15 oz EFW by Hadlock ([id number]) Head / Face / Neck Biometry: Lithographic Platemaker 5.8 mm CM 2.3 mm <1%Nicolaides Inner IOD 12.6 mm Extremities / Bony Struc Biometry: FL / BPD 0.78 93%Hadlock FL / HC 0.21 97%Hadlock FL / AC 0.23 69%Hadlock Tibia 29.2 mm 20w 5d 44%Caro GENERAL EVALUATION ----- Cardiac activity present. FHR 134 bpm. movements: present.Presentation: cephalic Placenta: Placental site: anterior Umbilical cord: Cord vessels: 3 vessel cord. Insertion site: placentalinsertion: normal Amniotic fluid: Amount of AF: normal amount. MVP 5.9 cm ANATOMY ----- The following structures appear normal: Head / Neck Cranium. Lateral ventricles. Choroid plexus.Midline falx. Cavum septi pellucidi. Cerebellum. Cisterna magna. Thalami. Nuchal fold. Face Lips. Profile. Nose. Palate. Orbits. Heart / Thorax 4-chamber view. RVOT view. LVOT view. 3-vesselview. 6-zvqcpg-uokafmb view. Situs. Aortic arch view. Ductal arch view. Superior vena cava. Inferiorvena cava. High short axis view. Cardiac rhythm. Diaphragm. Abdomen Abdominal wall. Cord insertion. Stomach. Kidneys.Bladder. Genitals. Spine Cervical spine. Thoracic spine. Lumbar spine.Sacral spine. Extremities / Arms. Right hand. Left hand. Legs. Right foot.Left foot. Skeleton sex: female. MATERNAL STRUCTURES ----- Cervix Visualized Approach - Transabdominal: Cervical length 37.5mm Right Ovary Normal Size 40 mm x 42 mm x 16 mm. Vol 13.8 cm Left Ovary Normal Size 34 mm x 32 mm x 14 mm. Vol 7.6 cm GROWTH OVERVIEW ----- Exam date GA BPD (mm) HC (mm) AC (mm) FL(mm) HL (mm) EFW (g) 05/27/2024 20w 6d 47.4 28% 178.2 18% 161.5 56%36.9 72% 31.5 33% 414 68% COMMENT ----- Patient's name and date of were verified by the farm operations manager beforethe exam IMPRESSION ----- IUP at 20w 6d AGA growth with EFW 414 g (68%) No major structural malformations are identified within the limitsof ultrasound. No soft markers of aneuploidy are visualized. Normal amniotic fluid volume, MVP 5.9 cm Normal cervical length, 37.5 mm Placenta is anterior with no previa Recommendations: - Recommend serial growth every 4 weeks at 28 weeks us Domonique Monet MD ORDERABLES Final Resul t from Last 3 Months Insurance [facility] [id number]
--- OUTSIDE RECORDS SUMMARY | 2024-07-09 12:44 | XMS_ITS | Encounter Summary ---
Author Organization [facility] Address [address] [place] [address] Care Team Providers Care Buzzsaw Operator Name Role Phone Unavailable Primary Care Provider Unavailabl e Encounter Details Date Type Department Care Team (Late st Contact Info) Description 07/07/2024 External Device Data STL ABSTRACTION Provider, Abstract NO ADDRESS ON FILE Social History Tobacco Use Types Packs/Day Years [...] on file Sexual Orientation Not on file documented as of this encounter Plan of Treatment Upcoming Encounters Date Type Department Care Team (Late st Contact Info) Description 07/15/2024 2:30 PM CDT Appointment [facility] [address] [place] [address] Brianne Chappell MD [address] [place] [phone] documented as of this encounter Visit Diagnoses Not on filedocumented in this encounter
--- OUTSIDE RECORDS SUMMARY | 2024-07-09 12:44 | XMS_ITS | Encounter Summary ---
Author Organization [facility] Address [address] [place] [address] Care Team Providers Care Pizza Chef Name Role Phone Unavailable Primary Care Provider [...] Info) Description 07/15/2024 2:30 PM CDT Appointment [facility] [address] [place] [address] Brianne Chappell MD [address] [place] [phone] documented as of this encounter Visit Diagnoses Not on filedocumented in this encounter
[2024-07-09 13:12] LABS: Hematocrit 32.7 % (37.0-47.0); Immature Platelet Fraction Pct 4.7 % (0.9-11.2); Mean Corpuscular HGB Conc 33.6 g/dl (32-36); Mean Corpuscular Hemoglobin 30.1 pg (26-34); Mean Corpuscular Volume 89.6 fl (80-100); Mean Platelet Volume 10.2 fl (7.4-10.4); Platelet Count Result 144 k/mm3 (150-375); Red Blood Count 3.65 M/mm3 (4.2-5.4); Red Cell Distribution Width 15.2 % (11.5-14.5); White Blood Count 7.8 K/mm3 (4.5-10.0)
[2024-07-09 13:27] LABS: Glucose 1 Hour PP 50gm Dose 113 mg/dL
[2024-07-11] MEDS: RHO(D) IMMUNE GLOBULIN 300 MCG/2 ML SYRINGE IM (15:29)
== END 2024-10-07 23:59 | disposition home or self-care (01) ==
LOC: ANHLAB 11:29
PROVIDERS: PCP Nurse Practitioner Family; Visit Provider Nurse Practitioner Obstetrics & Gynecology
DX: Z29.13 Encounter for prophylactic Rho(D) immune globulin (principal); O36.0190 Maternal care for anti-D [Rh] antibodies, unspecified trimester, not applicable or unspecified; Z3A.00 Weeks of gestation of pregnancy not specified
CPT/HCPCS: 36415; 82947; 85027; 85055; 85461; 86850; 86900; 86901; 90384; 96372; J2790

== ENCOUNTER 2024-08-12 15:33 | Outpatient (CLI) | payer OTHER, SELFPAY ==
[2024-08-12 15:56] LABS: Hematocrit 35.1 % (37.0-47.0); Hemoglobin 11.6 g/dL (12.0-15.0); Mean Corpuscular Hemoglobin 29.3 pg (26-34); Mean Corpuscular Volume 88.6 fl (80-100); Mean Platelet Volume 9.9 fl (7.4-10.4); Platelet Count Result 125 k/mm3 (150-375); Red Blood Count 3.96 M/mm3 (4.2-5.4); Red Cell Distribution Width 15.8 % (11.5-14.5)
--- OUTSIDE RECORDS SUMMARY | 2024-08-12 16:51 | XMS_ITS | Encounter Summary ---
Author Organization [facility] Address [address] [place] [address] Care Team Providers Care Stage Producer Name Role Phone Unavailable Primary Care Provider Unavailabl e Reason for Referral * Radiology Services (Routine) - Closed Specialty Diagnoses / Procedures Referred By Rogelio krueger Referred To Contact Diagnoses Chronic hypertension affecting Procedures US OB FOLLOW UP PER FETUS Agustin Ramsay MD [address] [place] [address] Phone: tel: fax: Referral ID Status Reason Start Date Expiration Date Visits Re quested Visits Authorized [id number] Closed 07/15/2024 08/15/2025 1 1 Reason for Visit * Radiology Services (Routine) - Closed Specialty Diagnoses / Procedures Referred By Rogelio krueger Referred To Contact Diagnoses Chronic hypertension affecting Procedures US OB FOLLOW UP PER FETUS Agustin Ramsay MD [address] [place] [address] Phone: tel: fax: Referral ID Status Reason Start Date Expiration Date Visits Re quested Visits Authorized [id number] Closed 07/15/2024 08/15/2025 1 1 Encounter Details Date Type Department Care Team (Late st Contact Info) Description 08/12/2024 1:51 PM CDT Hospital Encounter [facility] [address] [place] [address] Agustin Ramsay MD [address] [facility] [address] [place] [phone] Arrived Social History Tobacco Use Types Packs/Day Years [...] as of this encounter Plan of Treatment Not on file documented as of this encounter Procedures Procedure Name Priority Date/Time Associated Diagnosis Comments US OB FOLLOW UP PER FETUS Routine 08/12/2024 2:20 PM CDT Chronic hypertension affecting documented in this encounter Results * US OB FOLLOW UP PER FETUS (08/12/2024 2:20 PM CDT) Anatomical Region Laterality Modality Pelvis Ultrasound 08/12/2024 2:01 PM CDT Narrative 08/12/2024 2:20 PM CDT STL FOLLOW UP ----- Pat. Name: ALETHA BERMUDEZ Study Date: 08/12/2024 2:01pm Pat. NO: [id number] Referring MD: ELIZABETH BILLY MD Site: [facility] [employer] Supervisor: Cornelia Liu RDMS : 1985 Age: 39 ----- INDICATION ----- Screening Follow-Up Personal History of Other Complications Chronic Hypertension (HTN) on meds Depression sertraline Advanced Maternal Age (AMA), Multigravida CODING ----- Diagnoses Z3A.31: Weeks of gestation O09.523: Supervision of elderly multigravida O99.343: Other mental disorders complicating O10.013: Pre-existing essential hypertension complicating Z87.59: Personal history of other complications of , childbirth and the puerperium Z3A.31: Weeks of gestation O09.523: Supervision of elderly multigravida O99.343: Other mental disorders complicating O10.013: Pre-existing essential hypertension complicating Procedures 09574: Ultrasound, uterus, real time with image documentation, follow up, transabdominal approach per fetus HISTORY ----- OB History 1 MATERNAL ASSESSMENT ----- Physical Exam Weight 109 kg. BMI 37.59 kg/m METHOD ----- Transabdominal ultrasound examination ----- Ramírez . Number of fetuses: 1 DATING ----- GA by prior assessment 31 w + 6 d NINFA by prior assessment: 10/08/2024 Ultrasound examination on: 08/12/2024 GA by U/S based upon: AC, BPD, EFW, Femur, HC GA by U/S 32 w + 5 d NINFA by U/S: 10/02/2024 Method of dating: Restore dating from previous exam Assigned: based on stated NINFA, selected on 04/06/2024 Assigned GA 31 w + 6 d Assigned NINFA: 10/08/2024 BIOMETRY ----- BPD 80.8 mm 32w 3d 59% Hadlock OFD 106.3 mm 35w 1d 97% Caro HC 299.4 mm 33w 1d 48% Hadlock AC 295.7 mm 33w 4d 90% Hadlock Femur 60.8 mm 31w 4d 29% Hadlock HC / AC 1.01 21% Nicolaides Weight Calculation: EFW 2,064 g 32w 4d 71% Hadlock EFW (lb,oz) 4 lb 9 oz EFW by Hadlock ([id number]) Extremities / Bony Struc Biometry: FL / BPD 0.75 FL / HC 0.20 FL / AC 0.21 GENERAL EVALUATION ----- Cardiac activity present. FHR 128 bpm. movements: present. Presentation: cephalic Placenta: Placental site: anterior Umbilical cord: Cord vessels: 3 vessel cord Amniotic fluid: Amount of AF: normal amount. MVP 3.6 cm. BELLA 8.8 cm. Q1 0.9 cm, Q2 2.2 cm, Q3 2.1 cm, Q4 3.6 cm ANATOMY ----- The following structures appear normal: Head / Neck Cranium. Lateral ventricles. Choroid plexus. Midline falx. Cavum septi pellucidi. Cerebellum. Cisterna magna. Heart / Thorax 4-chamber view. LVOT view. 3-vessel view. Diaphragm. Abdomen Stomach. Kidneys. Bladder. sex: female. GROWTH OVERVIEW ----- Exam date GA BPD (mm) HC (mm) AC (mm) FL (mm) HL (mm) EFW (g) 05/27/2024 20w 6d 47.4 28% 178.2 18% 161.5 56% 36.9 72% 31.5 33% 414 68% 07/15/2024 27w 6d 68.7 31% 265.4 53% 260.3 95% 55.8 78% 1,421 93% 08/12/2024 31w 6d 80.8 59% 299.4 48% 295.7 90% 60.8 29% 2,064 71% COMMENT ----- Patient's name and date of were verified by the spring maker prior to the exam IMPRESSION ----- 1. Single living fetus with a gestational age of 31w 6d, based on the reported clinical dates. 2. Current growth parameters are consistent with the stated EDC. The size is appropriate for gestational age at 71% percentile (2064 g). 3. Unremarkable limited anatomy noted. A detailed anatomy cannot be performed secondary to advanced gestational age. However, there are no gross structural abnormalities noted. 4. The amniotic fluid is normal for gestational age (MVP:3.6 cm , BELLA:8.8 cm ). 5. Anterior placenta. No previa/not low-lying. 6. Cephalic presentation. Recommendations: - Continue serial growth surveillance at 4 week intervals. - Continue surveillance as planned. Thank you for allowing us to participate in the care of this patient. Procedure Note Silva Stafford MD - 08/12/2024 STL FOLLOW UP ----- Pat. Name:Michael BERMUDEZ Date:08/12/2024 2:01pm Pat. NO: [id number] MD:ELIZABETH BILLY [facility]Cornelia Noe PORRAS :1985Age:39 ----- INDICATION ----- Screening Follow-Up Personal History of Other Complications Chronic Hypertension (HTN) on meds Depression sertraline Advanced Maternal Age (AMA), Multigravida CODING ----- Diagnoses Z3A.31: Weeks of gestation O09.523: Supervision of elderly multigravida O99.343: Other mental disorders complicatingpregnancy O10.013: Pre-existing essential hypertensioncomplicating Z87.59: Personal history of other complications ofpregnancy, childbirth and the puerperium Z3A.31: Weeks of gestation O09.523: Supervision of elderly multigravida O99.343: Other mental disorders complicatingpregnancy O10.013: Pre-existing essential hypertensioncomplicating Procedures 46351: Ultrasound, uterus, real time withimage documentation, follow up, transabdominal approach per fetus HISTORY ----- OB History 1 MATERNAL ASSESSMENT ----- Physical Exam Weight 109 kg. BMI 37.59 kg/m METHOD ----- Transabdominal ultrasound examination ----- Ramírez . Number of fetuses: 1 DATING ----- GA by prior [id number] w + 6 d NINFA by prior assessment:10/08/2024 Ultrasound examination on:08/12/2024 GA by U/S based upon:AC, BPD, EFW, Femur, HC GA by U/S32 w + 5 d NINFA by U/S:10/02/2024 Method of dating:Restore dating from previous exam Assigned:based on stated NINFA, selected on 04/06/2024 Assigned GA31 w + 6 d Assigned NINFA:10/08/2024 BIOMETRY ----- BPD 80.8 mm 32w 3d 59%Hadlock OFD 106.3 mm 35w 1d 97%Caro HC 299.4 mm 33w 1d 48%Hadlock AC 295.7 mm 33w 4d 90%Hadlock Femur 60.8 mm 31w 4d 29%Hadlock HC / AC 1.01 21%Nicolaides Weight Calculation: EFW 2,064 g 32w 4d71% Hadlock EFW (lb,oz) 4 lb 9 oz EFW by Hadlock ([id number]) Extremities / Bony Struc Biometry: FL / BPD 0.75 FL / HC 0.20 FL / AC 0.21 GENERAL EVALUATION ----- Cardiac activity present. FHR 128 bpm. movements: present.Presentation: cephalic Placenta: Placental site: anterior Umbilical cord: Cord vessels: 3 vessel cord Amniotic fluid: Amount of AF: normal amount. MVP 3.6 cm. BELLA 8.8 cm. Q10.9 cm, Q2 2.2 cm, Q3 2.1 cm, Q4 3.6 cm ANATOMY ----- The following structures appear normal: Head / Neck Cranium. Lateral ventricles. Choroid plexus.Midline falx. Cavum septi pellucidi. Cerebellum. Cisterna magna. Heart / Thorax 4-chamber view. LVOT view. 3-vessel view. Diaphragm. Abdomen Stomach. Kidneys. Bladder. sex: female. GROWTH OVERVIEW ----- Exam date GA BPD (mm) HC (mm) AC (mm) FL(mm) HL (mm) EFW (g) 05/27/2024 20w 6d 47.4 28% 178.2 18% 161.5 56%36.9 72% 31.5 33% 414 68% 07/15/2024 27w 6d 68.7 31% 265.4 53% 260.3 95%55.8 78% 1,421 93% 08/12/2024 31w 6d 80.8 59% 299.4 48% 295.7 90%60.8 29% 2,064 71% COMMENT ----- Patient's name and date of were verified by the spring maker prior tothe exam IMPRESSION ----- 1. Single living fetus with a gestational age of 31w 6d, based on thereported clinical dates. 2. Current growth parameters are consistent with the stated EDC. The fetalsize is appropriate for gestational age at 71% percentile (2064 g). 3. Unremarkable limited anatomy noted. A detailed anatomycannot be performed secondary to advanced gestational age. However, there are no gross structural abnormalities noted. 4. The amniotic fluid is normal for gestational age (MVP:3.6 cm , BELLA:8.8cm ). 5. Anterior placenta. No previa/not low-lying. 6. Cephalic presentation. Recommendations: - Continue serial growth surveillance at 4 week intervals. - Continue surveillance as planned. Thank you for allowing us to participate in the care of this patient. us Agustin Ramsay MD US ORDERABLES Final Re sult documented in this encounter Visit Diagnoses Diagnosis Chronic hypertension affecting documented in this encounter
--- OUTSIDE RECORDS SUMMARY | 2024-08-12 16:51 | XMS_ITS | Clinical Summary ---
Author Organization [facility] Address [address] [place] [phone] Phone Care Team Providers Care Rn Traveling Name Role Phone Unavailable Primary Care Provider [...] Encounters Date Type Department Care Team Description 08/12/2024 1:51 PM CDT Hospital Encounter [facility] Doreen Almodovar [address] [place] [phone] Agustin Ramsay MD Arrived 08/03/2024 External Device Data STL ABSTRACTION Provider, Abstract 07/15/2024 2:30 PM CDT - 07/15/2024 11:59 PM CDT Hospital Encounter [facility] Doreen Almodovar [address] [place] [phone] Brianne Chappell MD Goldkamp, Jennifer, MD Discharge Disposition: Home or Self Care 07/07/2024 External Device Data STL ABSTRACTION Provider, Abstract 07/07/2024 External Device Data STL ABSTRACTION Provider, Abstract 06/26/2024 External Device Data STL ABSTRACTION Provider, Abstract 06/26/2024 External Device Data STL ABSTRACTION Provider, Abstract 06/23/2024 External Device Data STL ABSTRACTION Provider, Abstract 06/09/2024 External Device Data STL ABSTRACTION Provider, Abstract 05/27/2024 10:28 AM JAWBONE BREAKER - 05/27/2024 11:59 PM JAWBONE BREAKER Hospital Encounter [facility] Maternal and Health [facility] 2022 Doreen Almodovar [address] [place] [phone] Domonique Monet MD Discharge Disposition: Home or [...] Comments Blood Pressure 120/88 04/12/2021 3:10 PM JAWBONE BREAKER Pulse 87 04/12/2021 3:10 PM JAWBONE BREAKER Temperature - - Respiratory Rate - - Oxygen Saturation 99% 04/12/2021 3:10 PM JAWBONE BREAKER Inhaled Oxygen Concentration - - Weight 106.4 kg (234 lb 9.6 oz) 04/12/2021 3:10 PM JAWBONE BREAKER Height 170.2 cm (5' 7 ) 04/12/2021 3:10 PM JAWBONE BREAKER Body Mass Index 36.74 04/12/2021 3:10 PM JAWBONE BREAKER Plan of Treatment Health Maintenance Due Date Last Done Comments DTAP/TDAP/TD VACCINES (1 - Tdap) 2006 HEPATITIS B VACCINES (1 of 3 - 19+ 3-dose series) 2006 HPV/Cotest (21-29) 2008 CERVICAL CANCER SCREENING 2017 HPV/Cotest (30-65) 2017 PAP SMEAR 2017 INFLUENZA VACCINE (#1) 2023 02/09/2020 Preventative Visit- Commercial 2024 02/09/2020, 03/30/2018, 03/25/2017, Additional history exists HPV VACCINES Aged Out No longer eligi ble based on patient's age to complete this topic Procedures Procedure Name Priority Date/Time Associated Diagnosis Comments US OB FOLLOW UP PER FETUS Routine 08/12/2024 2:20 PM CDT Chronic hypertension affecting US OB FOLLOW UP PER FETUS Routine 07/15/2024 3:17 PM CDT Maternal hypertension in second trimester AMA (advanced maternal age) multigravida 35+, second trimester History of pre-eclampsia in prior , currently US OB DETAIL SINGLE GEST Routine 05/27/2024 11:28 AM JAWBONE BREAKER Multigravida of advanced maternal age in first trimester from Last 3 Months Results * US OB FOLLOW UP PER FETUS (08/12/2024 2:20 PM CDT) Only the most recent of2 resultswithin the time period is included. Anatomical Region Laterality Modality Pelvis Ultrasound 08/12/2024 2:01 PM CDT Narrative 08/12/2024 2:20 PM CDT STL FOLLOW UP ----- Pat. Name: ALETHA BERMUDEZ Study Date: 08/12/2024 2:01pm Pat. NO: [id number] Referring MD: ELIZABETH BILLY MD Site: [facility] Loadmaster: Cornelia Liu RDMS : 1985 Age: 39 [...] complicating O10.013: Pre-existing essential hypertension complicating Procedures 73850: Ultrasound, uterus, real time with image documentation, [...] 4 lb 9 oz EFW by Hadlock ([id number]) Extremities / Bony Struc Biometry: FL / [...] and date of were verified by the wire weaver cloth prior to the exam IMPRESSION ----- 1. [...] Pat. Name:Michael BERMUDEZ Date:08/12/2024 2:01pm Pat. NO: [id number] MD:ELIZABETH BILLY [facility] RDMS :1985Age:39 ----- INDICATION ----- Screening Follow-Up Personal [...] disorders complicatingpregnancy O10.013: Pre-existing essential hypertensioncomplicating Procedures 46231: Ultrasound, uterus, real time withimage documentation, follow up, transabdominal approach per fetus HISTORY ----- OB History 1 MATERNAL ASSESSMENT ----- Physical Exam Weight 109 kg. BMI 37.59 kg/m METHOD ----- Transabdominal ultrasound examination ----- Ramírez . Number of fetuses: 1 DATING ----- GA by prior [id number] w + 6 d NINFA by prior [...] 4 lb 9 oz EFW by Hadlock ([id number]) Extremities / Bony Struc Biometry: FL / BPD 0.75 FL / HC 0.20 FL / AC 0.21 GENERAL EVALUATION ----- Cardiac activity present. FHR 128 bpm. movements: present.Presentation: cephalic Placenta: Placental site: anterior Umbilical cord: Cord vessels: 3 vessel cord Amniotic fluid: Amount of AF: normal amount. MVP 3.6 cm. BLELA 8.8 cm. Q10.9 cm, Q2 2.2 cm, [...] and date of were verified by the wire weaver cloth prior tothe exam IMPRESSION ----- 1. Single [...] Ramsay MD US ORDERABLES Final Re sult * US OB DETAIL SINGLE GEST (05/27/2024 11:28 AM JAWBONE BREAKER) Anatomical Region Laterality Modality Pelvis Ultrasound 05/27/2024 10:3 9 AM JAWBONE BREAKER Narrative 05/27/2024 11:34 AM JAWBONE BREAKER STL COMP ----- Name: ALETHA BERMUDEZ Study Date: 05/27/2024 10:39am Pat. NO: [id number] Referring MD: ELIZABETH BILLY MD Site: [place] Loadmaster: Zeynep Sheehan RDMS : 1985 Age: 39 [...] Z36.3: Encounter for screening for malformations Procedures 65589: Ultrasound, uterus, real time with image documentation, [...] 0 lb 15 oz EFW by Hadlock ([id number]) Head / Face / Neck Biometry: Wharf Tender 5.8 mm CM 2.3 mm <1% Nicolaides Inner IOD 12.6 mm Extremities / Bony Struc Biometry: FL / BPD 0.78 93% Hadlock FL / HC 0.21 97% Hadlock FL / AC 0.23 69% Hadlock Tibia 29.2 mm 20w 5d 44% Caro GENERAL EVALUATION ----- Cardiac activity present. FHR [...] view. RVOT view. LVOT view. 3-vessel view. 9-ewxeyn-lmvrtsq view. Situs. Aortic arch view. Ductal arch [...] and date of were verified by the wire weaver cloth before the exam IMPRESSION ----- IUP at [...] Pat. Name:Michael BERMUDEZ Date:05/27/2024 10:39am Pat. NO: [id number] :ELIZABETH BILLY MD [facility]ynep Sheehan RDMS :1985Age:39 ----- INDICATION ----- Anatomy [...] puerperium Z36.3: Encounter for screening formalformations Procedures 81688: Ultrasound, uterus, real time withimage documentation, and maternal evaluation plus detailed anatomic examination,transabdominal approach HISTORY ----- OB History 1 METHOD ----- Transabdominal ultrasound examination ----- Ramírez . Number of fetuses: 1 DATING ----- GA by prior [id number] w + 6 d NINFA by prior [...] 0 lb 15 oz EFW by Hadlock ([id number]) Head / Face / Neck Biometry: Wharf Tender 5.8 mm CM 2.3 mm <1%Nicolaides Inner [...] 4-chamber view. RVOT view. LVOT view. 3-vesselview. 4-ngziqj-jwlcyks view. Situs. Aortic arch view. Ductal arch [...] and date of were verified by the wire weaver cloth beforethe exam IMPRESSION ----- IUP at 20w [...] Resul t from Last 3 Months Insurance [facility] [id number]
[2024-08-12 16:52] LABS: HIV 1/2 Ab P24 Ag Result Negative (Negative)
[2024-08-16 09:24] LABS: RPR Screen NON-REACTIVE (NON-REACTIVE)
== END 2024-08-12 15:34 | disposition home or self-care (01) ==
LOC: ANHLAB 15:34
PROVIDERS: PCP Nurse Practitioner Family; Visit Provider Nurse Practitioner Obstetrics & Gynecology
DX: D69.6 Thrombocytopenia, unspecified (principal); Z34.90 Encounter for supervision of normal pregnancy, unspecified, unspecified trimester; Z3A.00 Weeks of gestation of pregnancy not specified
CPT/HCPCS: 36415; 85027; 86592; 86703; G0432

== ENCOUNTER 2024-08-27 15:47 | Outpatient (CLI) | payer OTHER, SELFPAY ==
--- OUTSIDE RECORDS SUMMARY | 2024-08-27 15:50 | XMS_ITS | Clinical Summary ---
Author Organization [facility] Address [address] [place] [phone] Phone Care Team Providers Care Facility Attendant Name Role Phone Unavailable Primary Care Provider [...] Care Team Description 08/12/2024 1:51 PM CDT - 08/12/2024 11:59 PM CDT Hospital Encounter [facility] Doreen Almodovar [address] [place] [phone] Agustin Ramsay MD Discharge Disposition: Home or Self Care 08/03/2024 External Device Data STL ABSTRACTION Provider, Abstract 07/15/2024 2:30 PM CDT - 07/15/2024 11:59 PM CDT Hospital Encounter [facility] Doreen Almodovar [address] [place] [phone] Brianne Chappell MD Goldkamp, Jennifer, MD Discharge [...] Comments Blood Pressure 120/88 04/12/2021 3:10 PM MUSEUM TOUR GUIDE Pulse 87 04/12/2021 3:10 PM MUSEUM TOUR GUIDE Temperature - - Respiratory Rate - - Oxygen Saturation 99% 04/12/2021 3:10 PM MUSEUM TOUR GUIDE Inhaled Oxygen Concentration - - Weight 106.4 kg (234 lb 9.6 oz) 04/12/2021 3:10 PM MUSEUM TOUR GUIDE Height 170.2 cm (5' 7 ) 04/12/2021 3:10 PM MUSEUM TOUR GUIDE Body Mass Index 36.74 04/12/2021 3:10 PM MUSEUM TOUR GUIDE Plan of Treatment Upcoming Encounters Date Type Department Care Team (Late st Contact Info) Description 09/08/2024 3:45 PM CDT Appointment [facility] Maternal and Ground Floor [facility] [address] [place] [phone] Brianne Chappell MD [address] [phone] Health Maintenance Due Date Last Done Comments DTAP/TDAP/TD VACCINES (1 - Tdap) 2006 HEPATITIS B VACCINES (1 of 3 - 19+ 3-dose series) 2006 HPV/Cotest (21-29) 2008 CERVICAL CANCER SCREENING 2017 HPV/Cotest (30-65) 2017 PAP SMEAR 2017 INFLUENZA VACCINE (#1) 2023 02/09/2020 HPV VACCINES Aged Out No longer eligi [...] History of pre-eclampsia in prior , currently from Last 3 Months Results * US OB FOLLOW UP PER FETUS (08/12/2024 2:20 PM CDT) Only the most recent of2 resultswithin the time period is included. Anatomical Region Laterality Modality Pelvis Ultrasound 08/12/2024 2:01 PM CDT Narrative 08/12/2024 2:20 PM CDT STL FOLLOW UP ----- Pat. Name: ALETHA BERMUDEZ Study Date: 08/12/2024 2:01pm Pat. NO: [id number] Referring MD: ELIZABETH BILLY MD Site: [place] Mesh Cutter: Cornelia Liu RDMS : 1985 Age: 39 [...] complicating O10.013: Pre-existing essential hypertension complicating Procedures 07730: Ultrasound, uterus, real time with image documentation, [...] 4 lb 9 oz EFW by Hadlock ([id number]) Extremities / Bony Struc Biometry: FL / [...] and date of were verified by the oil expert prior to the exam IMPRESSION ----- 1. [...] Pat. Name:Michael BERMUDEZ Date:08/12/2024 2:01pm Pat. NO: [id number] MD:ELIZABETH BILLY [facility] RD[facility] :1985Age:39 ----- INDICATION ----- Screening [...] disorders complicatingpregnancy O10.013: Pre-existing essential hypertensioncomplicating Procedures 02995: Ultrasound, uterus, real time withimage documentation, follow up, transabdominal approach per fetus HISTORY ----- OB History 1 MATERNAL ASSESSMENT ----- Physical Exam Weight 109 kg. BMI 37.59 kg/m METHOD ----- Transabdominal ultrasound examination ----- Ramírez . Number of fetuses: 1 DATING ----- GA by prior w + 6 d NINFA by prior [...] 4 lb 9 oz EFW by Hadlock ([id number]) Extremities / Bony Struc Biometry: FL / [...] and date of were verified by the oil expert prior tothe exam IMPRESSION ----- 1. Single [...] of this patient. us Agustin Ramsay MD ORDERABLES Final Re sult from Last 3 Months Insurance [facility] [id number]
[2024-08-27 16:05] LABS: Platelet Count Result 120 k/mm3 (150-375)
[2024-08-27 16:16] LABS: Alanine Aminotransferase 16 U/L (6-35); Albumin Level 3.7 g/dL (3.5-5.1); Alkaline Phosphatase 101 U/L (38-126); Anion Gap 6 mmol/L (4-12); Aspartate Amino Transferase 25 U/L (14-36); Bilirubin,Total 0.5 mg/dL (0.2-1.3); Blood Urea Nitrogen 7 mg/dL (7-17); Calcium 9.1 mg/dL (8.4-10.2); Carbon Dioxide 21 mmol/L (22-30); Chloride 107 mmol/L (98-107); Estimated Glomerular Filt Rate > 60; Glucose 106 mg/dL (65-110); Potassium 3.6 mmol/L (3.4-5.0); Sodium 134 mmol/L (137-145)
[2024-08-27 16:17] LABS: Creatinine Urine 106.6 mg/dL; Total Protein Urine Random 16 mg/dL; Ur Ttl Prot Creatinine Ratio 0.15 mg/mg (0-0.20)
== END 2024-08-27 15:48 | disposition home or self-care (01) ==
LOC: ANHLAB 15:48
PROVIDERS: PCP Nurse Practitioner Family; Visit Provider Nurse Practitioner Obstetrics & Gynecology
DX: D69.6 Thrombocytopenia, unspecified (principal); Z87.59 Personal history of other complications of pregnancy, childbirth and the puerperium
CPT/HCPCS: 36415; 80053; 82570; 84156; 85049

== ENCOUNTER 2024-09-10 17:22 | Outpatient (NON) | payer OTHER, SELFPAY ==
--- OUTSIDE RECORDS SUMMARY | 2024-09-10 17:36 | XMS_ITS | Encounter Summary ---
[facility] Organization [facility] Address [address] [place] [address] Care Team Providers Care Diabetes Nurse Name Role Phone Unavailable Primary Care Provider Unavailabl e Encounter Details Date Type Department Care Team (Late st Contact Info) Description 09/08/2024 External Device Data STL ABSTRACTION Provider, Abstract [...] on file documented as of this encounter Visit Diagnoses Not on filedocumented in this encounter
--- OUTSIDE RECORDS SUMMARY | 2024-09-10 17:36 | XMS_ITS | Clinical Summary ---
Author Organization [facility] Address [address] [place] [address] Phone Care Team Providers Care Loan Reviewer Name Role Phone Unavailable Primary Care Provider [...] Encounters Date Type Department Care Team Description 09/08/2024 3:38 PM CDT - 09/08/2024 11:59 PM CDT Hospital Encounter [facility] Maternal and Ground [facility] [address] [place] [phone] Brianne Chappell MD Arrived Discharge Disposition: Home or Self Care 09/08/2024 External Device Data STL ABSTRACTION Provider, Abstract 08/12/2024 1:51 PM CDT - 08/12/2024 11:59 PM CDT Hospital Encounter [facility] Doreen Almodovar [address] [place] [phone] Agustin Ramsay MD Discharge Disposition: Home or Self Care 08/03/2024 External Device Data STL ABSTRACTION Provider, Abstract 07/15/2024 2:30 PM CDT - 07/15/2024 11:59 PM CDT Hospital Encounter [facility] [address] Doreen Almodovar [address] [place] [phone] Brianne Chappell MD Goldkamp, Jennifer, MD Discharge [...] Comments Blood Pressure 120/88 04/12/2021 3:10 PM SILVER SERVICE WAITER Pulse 87 04/12/2021 3:10 PM SILVER SERVICE WAITER Temperature - - Respiratory Rate - - Oxygen Saturation 99% 04/12/2021 3:10 PM SILVER SERVICE WAITER Inhaled Oxygen Concentration - - Weight 106.4 kg (234 lb 9.6 oz) 04/12/2021 3:10 PM SILVER SERVICE WAITER Height 170.2 cm (5' 7) 04/12/2021 3:10 PM SILVER SERVICE WAITER Body Mass Index 36.74 04/12/2021 3:10 PM SILVER SERVICE WAITER Plan of Treatment Health Maintenance Due Date [...] US OB FOLLOW UP PER FETUS Routine 09/08/2024 4:21 PM CDT Chronic hypertension in US OB FOLLOW UP PER FETUS Routine 08/12/2024 2:20 PM CDT Chronic hypertension affecting US OB FOLLOW UP PER FETUS Routine 07/15/2024 3:17 PM CDT Maternal hypertension in second trimester AMA (advanced maternal age) multigravida 35+, second trimester History of pre-eclampsia in prior , currently from Last 3 Months Results * US OB FOLLOW UP PER FETUS (09/08/2024 4:21 PM CDT) Only the most recent of3 resultswithin the time period is included. Anatomical Region Laterality Modality Pelvis Ultrasound 09/08/2024 3:58 PM CDT Narrative 09/08/2024 4:28 PM CDT STL FOLLOW UP ----- Pat. Name: ALETHA BERMUDEZ Study Date: 09/08/2024 3:58pm Pat. NO: [id number] Referring MD: ELIZABETH BILLY MD Site: [facility] On Air Personality: Alexa Silverman RDMS : 1985 Age: 39 ----- INDICATION ----- Screening Follow-Up Personal History of Other Complications Preeclampsia Chronic Hypertension (HTN) Depression Advanced Maternal Age (AMA), Multigravida CODING ----- Diagnoses Z3A.35: Weeks of gestation O09.523: Supervision of elderly multigravida O99.343: Other mental disorders complicating O10.013: Pre-existing essential hypertension complicating Z87.59: Personal history of other complications of , childbirth and the puerperium Z36.2: Encounter for other screening follow-up Procedures 70688: Ultrasound, uterus, real time with image documentation, follow up, transabdominal approach per fetus HISTORY ----- OB History 2. Para 1 MATERNAL ASSESSMENT ----- Physical Exam Weight 106 kg. BMI 36.65 kg/m METHOD ----- Transabdominal ultrasound examination ----- Ramírez . Number of fetuses: 1 DATING ----- GA by prior assessment 35 w + 5 d NINFA by prior assessment: 10/08/2024 Ultrasound examination on: 09/08/2024 GA by U/S based upon: AC, BPD, EFW, Femur, HC GA by U/S 37 w + 0 d NINFA by U/S: 09/29/2024 Method of dating: Restore dating from previous exam Assigned: based on stated NINFA, selected on 04/06/2024 Assigned GA 35 w + 5 d Assigned NINFA: 10/08/2024 BIOMETRY ----- BPD 91.6 mm 37w 1d 89% Hadlock OFD 112.7 mm 38w 2d 86% Caro HC 324.5 mm 36w 5d 43% Hadlock AC 348.1 mm 38w 5d >99% Hadlock Femur 67.2 mm 34w 4d 17% Hadlock HC / AC 0.93 7% Nicolaides Weight Calculation: EFW 3,192 g 37w 6d 89% Hadlock EFW (lb,oz) 7 lb 1 oz EFW by Hadlock ([id number]) Extremities / Bony Struc Biometry: FL / BPD 0.73 FL / HC 0.21 FL / AC 0.19 GENERAL EVALUATION ----- Cardiac activity present. FHR 136 bpm. movements: present. Presentation: cephalic Placenta: Placental site: anterior Umbilical cord: Cord vessels: 3 vessel cord. Amniotic fluid: Amount of AF: normal amount. MVP 4.4 cm. BELLA 9.4 cm. Q1 2.8 cm, Q2 0.0 cm, Q3 2.2 cm, Q4 4.4 cm ANATOMY ----- The following structures appear abnormal: Abdomen Right kidney: 8.2 mm UTD. The following structures appear normal: Head / Neck Cranium. Choroid plexus. Cavum septi pellucidi. Heart / Thorax 4-chamber view. RVOT view. Diaphragm. Abdomen Stomach. Left kidney. Bladder. sex: female. GROWTH OVERVIEW ----- Exam date GA BPD (mm) HC (mm) AC (mm) FL (mm) HL (mm) EFW (g) 05/27/2024 20w 6d 47.4 28% 178.2 18% 161.5 56% 36.9 72% 31.5 33% 414 68% 07/15/2024 27w 6d 68.7 31% 265.4 53% 260.3 95% 55.8 78% 1,421 93% 08/12/2024 31w 6d 80.8 59% 299.4 48% 295.7 90% 60.8 29% 2,064 71% 09/08/2024 35w 5d 91.6 89% 324.5 43% 348.1 >99% 67.2 17% 3,192 89% COMMENT ----- Patient's name and date of were verified by the slot host prior to the exam IMPRESSION ----- Ramírez @ 35w 5d referred to check growth. The is complicated by AMA, BMI, and CHTN. She is having testing in her Ob office. - The biometry is consistent with dates with the EFW at the 89% percentile. - Amniotic fluid indices are within normal limits. - Limited anatomy is notable for unilateral UTD. The remaining limited anatomy is unremarkable. The findings were discussed with the patient and her after the ultrasound. She was enrolled in the Care Team and will be set up for post imaging. Further ultrasounds may be scheduled as clinically indicated. Thank you for allowing us to participate in the care of this patient. Procedure Note Emerita Caicedo MD - 09/08/2024 [facility] FOLLOW UP ----- Pat. Name:Michael BERMUDEZ Date:09/08/2024 3:58pm Pat. NO: [id number] MD:ELIZABETH BILLY MD [facility]:Alexa Silvreman RDMS :1985Age:39 ----- INDICATION ----- Screening Follow-Up Personal History of Other Complications Preeclampsia Chronic Hypertension (HTN) Depression Advanced Maternal Age (AMA), Multigravida CODING ----- Diagnoses Z3A.35: Weeks of gestation O09.523: Supervision of elderly multigravida O99.343: Other mental disorders complicatingpregnancy O10.013: Pre-existing essential hypertensioncomplicating Z87.59: Personal history of other complications ofpregnancy, childbirth and the puerperium Z36.2: Encounter for other screeningfollow-up Procedures 56449: Ultrasound, uterus, real time withimage documentation, follow up, transabdominal approach per fetus HISTORY ----- OB History 2. Para 1 MATERNAL ASSESSMENT ----- Physical Exam Weight 106 kg. BMI 36.65 kg/m METHOD ----- Transabdominal ultrasound examination ----- Ramírez . Number of fetuses: 1 DATING ----- GA by prior [id number] w + 5 d NINFA by prior assessment:10/08/2024 Ultrasound examination on:09/08/2024 GA by U/S based upon:AC, BPD, EFW, Femur, HC GA by U/S37 w + 0 d NINFA by U/S:09/29/2024 Method of dating:Restore dating from previous exam Assigned:based on stated NINFA, selected on 04/06/2024 Assigned GA35 w + 5 d Assigned NINFA:10/08/2024 BIOMETRY ----- BPD 91.6 mm 37w 1d 89%Hadlock OFD 112.7 mm 38w 2d 86%Caro HC 324.5 mm 36w 5d 43%Hadlock AC 348.1 mm 38w 5d >99%Hadlock Femur 67.2 mm 34w 4d 17%Hadlock HC / AC 0.93 7%Nicolaides Weight Calculation: EFW 3,192 g 37w 6d89% Hadlock EFW (lb,oz) 7 lb 1 oz EFW by Hadlock ([id number]) Extremities / Bony Struc Biometry: FL / BPD 0.73 FL / HC 0.21 FL / AC 0.19 GENERAL EVALUATION ----- Cardiac activity present. FHR 136 bpm. movements: present.Presentation: cephalic Placenta: Placental site: anterior Umbilical cord: Cord vessels: 3 vessel cord. Amniotic fluid: Amount of AF: normal amount. MVP 4.4 cm. BELLA 9.4 cm. Q12.8 cm, Q2 0.0 cm, Q3 2.2 cm, Q4 4.4 cm ANATOMY ----- The following structures appear abnormal: Abdomen Right kidney: 8.2 mm UTD. The following structures appear normal: Head / Neck Cranium. Choroid plexus. Cavum septi pellucidi. Heart / Thorax 4-chamber view. RVOT view. Diaphragm. Abdomen Stomach. Left kidney. Bladder. sex: female. GROWTH OVERVIEW ----- Exam date GA BPD (mm) HC (mm) AC (mm)FL (mm) HL (mm) EFW (g) 05/27/2024 20w 6d 47.4 28% 178.2 18% 161.5 56%36.9 72% 31.5 33% 414 68% 07/15/2024 27w 6d 68.7 31% 265.4 53% 260.3 95%55.8 78% 1,421 93% 08/12/2024 31w 6d 80.8 59% 299.4 48% 295.7 90%60.8 29% 2,064 71% 09/08/2024 35w 5d 91.6 89% 324.5 43% 348.1 >99%67.2 17% 3,192 89% COMMENT ----- Patient's name and date of were verified by the slot host prior tothe exam IMPRESSION ----- Ramírez @ 35w 5d referred to check growth. The is complicated by AMA, BMI, and CHTN. She is having testing in her Ob office. - The biometry is consistent with dates with the EFW at the 89%percentile. - Amniotic fluid indices are within normal limits. - Limited anatomy is notable for unilateral UTD. The remaininglimited anatomy is unremarkable. The findings were discussed with the patient and her after theultrasound. She was enrolled in the Care Team and will be set up for post natalimaging. Further ultrasounds may be scheduled as clinically indicated. Thank you for allowing us to participate in the care of this patient. us Brianne Chappell MD US ORDERABLES Final Result from Last 3 Months Insurance [facility] [id number] [facility] Address: [facility] [id number] [place] [address]
--- OUTSIDE RECORDS SUMMARY | 2024-09-10 17:36 | XMS_ITS | Encounter Summary ---
[facility] Organization [facility] Address [address] [place] [address] Care Team Providers Care Spray Crew Name Role Phone Unavailable Primary Care Provider Unavailabl e Reason for Referral * Radiology Services (Routine) - Closed Specialty Diagnoses / Procedures Referred By Leónac evans Referred To Contact Diagnoses Chronic hypertension in Procedures US OB FOLLOW UP PER FETUS Brianne Chappell MD [address] [place] [address] [place] [address] Phone: tel: fax: Referral ID Status Reason Start Date Expiration Date Visits Re quested Visits Authorized [id number] Closed 08/12/2024 09/12/2025 1 1 Reason for Visit * Radiology Services (Routine) - Closed Specialty Diagnoses / Procedures Referred By Rogelio krueger Referred To Contact Diagnoses Chronic hypertension in Procedures US OB FOLLOW UP PER FETUS Brianen Chappell MD [address] [place] [address] [place] [address] Phone: tel: fax: Referral ID Status Reason Start Date Expiration Date Visits Re quested Visits Authorized [id number] Closed 08/12/2024 09/12/2025 1 1 Encounter Details Date Type Department Care Team (Latest Contact Info) Description 09/08/2024 3:38 PM CDT - 09/08/2024 11:59 PM CDT Hospital Encounter [facility] [address] [facility] [facility] [place] [address] Brianne Chappell MD [address] [place] [address] [place] [address] Arrived Discharge Disposition: Home or Self Care Social History Tobacco Use Types Packs/Day Years [...] on file documented as of this encounter Medications at Time of Discharge VIT-IRON FUM-FOLIC AC ORAL Take by mouth. calcium citrate 250 mg calcium Tablet Take 250 mg by mouth daily. ferrous sulfate (Slow Fe) 142 mg (45 mg iron) Tablet Sustained Release Take 142 mg by mouth. documented as of this encounter Progress Notes * Adrienne Maldonado RN - 09/08/2024 3:45 PM CDT Care Team Delivery Planning Patient: Aletha Louise#: [id number] : 1985 OB: Dr. Billy NINFA: 10/08/2024 /Para: Diagnosis: Right urinary tract dilation - 8.2mm Estimated Weight: 3,192g at 35w5d (89th percentile) Baby's Name: Girl Delivery Plan: Based on the usual obstetric indications. Expected direct admit to NICU? No, Anticipate admission to the full term nursery if born at term follow up: renal/bladder ultrasound and follow up as needed recommended by Dr. Caicedo, Maternal Medicine. Consults completed: consult with Pediatric Urology offered; family will let me know if interested. Coal Deliverer: Dr. Wesley Maldonado RN, BSN Care Leather Coverer [phone] documented in this encounter Plan of Treatment Not on file documented as of this encounter Procedures Procedure Name Priority Date/Time Associated Diagnosis Comments US OB FOLLOW UP PER FETUS Routine 09/08/2024 4:21 PM CDT Chronic hypertension in documented in this encounter Results * US OB FOLLOW UP PER FETUS (09/08/2024 4:21 PM CDT) Anatomical Region Laterality Modality Pelvis Ultrasound 09/08/2024 3:58 PM CDT Narrative 09/08/2024 4:28 PM CDT [facility] FOLLOW UP ----- Pat. Name: ALETHA BERMUDEZ Study Date: 09/08/2024 3:58pm Pat. NO: [id number] Referring MD: ELIZABETH BILLY MD Site: [facility] Slot Shift Manager: Alexa Silverman RDMS : 1985 Age: 39 [...] Z36.2: Encounter for other screening follow-up Procedures 84590: Ultrasound, uterus, real time with image documentation, [...] 7 lb 1 oz EFW by Hadlock ([id number]) Extremities / Bony Struc Biometry: FL / [...] and date of were verified by the boy's adviser prior to the exam IMPRESSION ----- Ramírez [...] Procedure Note Emerita Caicedo MD - 09/08/2024 [facility] FOLLOW UP ----- Pat. Name:Michael BERMUDEZ Date:09/08/2024 3:58pm Pat. NO: [id number] MD:ELIZABETH BILLY [facility] Silverman RDMS :1985Age:39 ----- INDICATION ----- Screening Follow-Up Personal History of Other Complications Preeclampsia Chronic Hypertension (HTN) Depression Advanced Maternal Age (AMA), Multigravida CODING ----- Diagnoses Z3A.35: Weeks of gestation O09.523: Supervision of elderly multigravida O99.343: Other mental disorders complicatingpregnancy O10.013: Pre-existing essential hypertensioncomplicating Z87.59: Personal history of other complications ofpregnancy, childbirth and the puerperium Z36.2: Encounter for other screeningfollow-up Procedures 62265: Ultrasound, uterus, real time withimage documentation, follow up, transabdominal approach per fetus HISTORY ----- OB History 2. Para 1 MATERNAL ASSESSMENT ----- Physical Exam Weight 106 kg. BMI 36.65 kg/m METHOD ----- Transabdominal ultrasound examination ----- Ramírez . Number of fetuses: 1 DATING ----- GA by prior [id number] w + 5 d NINFA by prior [...] 7 lb 1 oz EFW by Hadlock ([id number]) Extremities / Bony Struc Biometry: FL / [...] and date of were verified by the boy's adviser prior tothe exam IMPRESSION ----- Ramírez @ [...] Brianne Chappell MD US ORDERABLES Final Result documented in this encounter Visit Diagnoses Diagnosis Chronic hypertension in Benign essential hypertension complicating , childbirth, and the puerperium, unspecified as to episode of care documented in this encounter
[2024-09-10 17:41] VITALS: BMI 41.4
[2024-09-10 17:52] LABS: Collection Time Urine 24 HOURS
[2024-09-10 17:58] LABS: Patient Weight 256 Lbs
[2024-09-10 17:59] LABS: Total Volume 24 Hour Urine 2700 ml
[2024-09-10 18:10] LABS: Total Protein Urine Random 18 mg/dL
[2024-09-10 18:11] LABS: Creatinine Clearance Urine 144.1 ml/min (75-125); Creatinine Urine 72.8 mg/dL; Serum Creat 0.74
[2024-09-10 18:14] LABS: Total Protein Urine 24 Hr 486 mg/24hr (28-141); Total Volume 24 Hour Urine 2700 ml
== END 2024-09-10 17:23 | disposition home or self-care (01) ==
PROVIDERS: PCP Nurse Practitioner Family; Visit Provider Obstetrics & Gynecology
DX: I10 Essential (primary) hypertension (principal)
CPT/HCPCS: 81050; 82575; 84156

== ENCOUNTER 2024-09-16 14:31 | Outpatient (CLI) | payer OTHER, SELFPAY ==
--- OUTSIDE RECORDS SUMMARY | 2024-09-16 14:34 | XMS_ITS | Clinical Summary ---
Author Organization [facility] Address [address] [place] [address] Phone Care Team Providers Care Nailhead Puncher Name Role Phone Unavailable Primary Care Provider [...] Encounters Date Type Department Care Team Description 09/14/2024 External Device Data ST[facility] ABSTRACTION Provider, Abstract 09/09/2024 External Device Data [facility] ABSTRACTION Provider, Abstract 09/08/2024 3:38 PM CDT - 09/08/2024 11:59 PM CDT Hospital Encounter [facility] [address] [place] [address] Brianne Chappell MD Discharge Disposition: Home or Self Care 09/08/2024 External Device Data ST[facility] ABSTRACTION Provider, Abstract 08/12/2024 1:51 PM CDT - 08/12/2024 11:59 PM CDT Hospital Encounter [facility] [address] [place] [address] Agustin Ramsay MD Discharge Disposition: Home or Self Care 08/03/2024 External Device Data ST[facility] ABSTRACTION Provider, Abstract 07/15/2024 2:30 PM CDT - 07/15/2024 11:59 PM CDT Hospital Encounter [facility] [address] [place] [address] Brianne Chappell MD Goldkamp, Jennifer, MD Discharge [...] Comments Blood Pressure 120/88 04/12/2021 3:10 PM [employer] G[employer] WELDER Pulse 87 04/12/2021 3:10 PM [employer] G[employer] WELDER Temperature - - Respiratory Rate - - Oxygen Saturation 99% 04/12/2021 3:10 PM [employer] G[employer] WELDER Inhaled Oxygen Concentration - - Weight 106.4 kg (234 lb 9.6 oz) 04/12/2021 3:10 PM AR[employer] AND G[employer] WELDER Height 170.2 cm (5' 7) 04/12/2021 3:10 PM AR[employer] AND G[employer] WELDER Body Mass Index 36.74 04/12/2021 3:10 PM ARC AND GAS WELDER Plan of Treatment Health Maintenance Due Date [...] BERMUDEZ Study Date: 09/08/2024 3:58pm Pat. NO: [id number] Referring MD: ELIZABETH BILLY MD Site: [facility] Solar Development Engineer: Alexa Silverman RDMS : 1985 Age: 39 [...] Z36.2: Encounter for other screening follow-up Procedures 35171: Ultrasound, uterus, real time with image documentation, [...] 7 lb 1 oz EFW by Hadlock ([id number]) Extremities / Bony Struc Biometry: FL / [...] and date of were verified by the quality systems technician prior to the exam IMPRESSION ----- Ramírez [...] and will be set up for post inder imaging. Further ultrasounds may be scheduled as clinically indicated. Thank you for allowing us to participate in the care of this patient. Procedure Note Emerita Caicedo MD - 09/08/[address] [facility] FOLLOW UP ----- Pat. Name:Michael BERMUDEZ Date:09/08/2024 3:58pm Pat. NO: [id number] MD:ELIZABETH BILLY MD [facility] Silver[facility] RDMS :01/01/1986Age:39 ----- INDICATION ----- Screening Follow-Up Personal History of Other Complications Preeclampsia Chronic Hypertension (HTN) Depression Advanced Maternal Age (AMA), Multigravida CODING ----- Diagnoses Z3A.35: Weeks of gestation O09.523: Supervision of elderly multigravida O99.343: Other mental disorders complicatingpregnancy O10.013: Pre-existing essential hypertensioncomplicating Z87.59: Personal history of other complications ofpregnancy, childbirth and the puerperium Z36.2: Encounter for other screeningfollow-up Procedures 06750: Ultrasound, uterus, real time withimage documentation, follow up, transabdominal approach per fetus HISTORY ----- OB History 2. Para 1 MATERNAL ASSESSMENT ----- Physical Exam Weight 106 kg. BMI 36.65 kg/m METHOD ----- Transabdominal ultrasound examination ----- Ramírez . Number of fetuses: 1 DATING ----- GA by prior w + 5 d NINFA by prior [...] 7 lb 1 oz EFW by Hadlock ([id number]) Extremities / Bony Struc Biometry: FL / [...] and date of were verified by the quality systems technician prior tothe exam IMPRESSION ----- Ramírez @ [...] Final Result from Last 3 Months Insurance [facility] [id number]
--- OUTSIDE RECORDS SUMMARY | 2024-09-16 14:34 | XMS_ITS | Encounter Summary ---
Author Organization [facility] Address [address] [place] [address] Care Team Providers Care Mingler Operator Name Role Phone Unavailable Primary Care Provider Unavailabl e Encounter Details Date Type Department Care Team (Late st Contact Info) Description 09/14/2024 External Device Data STL ABSTRACTION [...]
[2024-09-16 15:15] LABS: Creatinine Urine 159.9 mg/dL; Total Protein Urine Random 32 mg/dL
[2024-09-16 15:20] LABS: Hematocrit 36.8 % (37.0-47.0); Hemoglobin 12.4 g/dL (12.0-15.0); Mean Corpuscular HGB Conc 33.7 g/dl (32-36); Mean Corpuscular Hemoglobin 29.7 pg (26-34); Platelet Count Result 144 k/mm3 (150-375); Red Blood Count 4.18 M/mm3 (4.2-5.4); Red Cell Distribution Width 16.2 % (11.5-14.5); White Blood Count 8.4 K/mm3 (4.5-10.0)
[2024-09-16 15:34] LABS: Alanine Aminotransferase 14 U/L (6-35); Albumin Level 3.6 g/dL (3.5-5.1); Alkaline Phosphatase 142 U/L (38-126); Anion Gap 8 mmol/L (4-12); Aspartate Amino Transferase 25 U/L (14-36); Bilirubin,Total 0.6 mg/dL (0.2-1.3); Blood Urea Nitrogen 8 mg/dL (7-17); Calcium 9.5 mg/dL (8.4-10.2); Carbon Dioxide 22 mmol/L (22-30); Chloride 105 mmol/L (98-107); Estimated Glomerular Filt Rate > 60; Glucose 82 mg/dL (65-110); Potassium 3.9 mmol/L (3.4-5.0); Sodium 135 mmol/L (137-145); Uric Acid 3.8 mg/dL (2.5-7.5)
== END 2024-09-16 14:32 | disposition home or self-care (01) ==
LOC: ANHLAB 14:32
PROVIDERS: PCP Nurse Practitioner Family; Visit Provider Obstetrics & Gynecology
DX: O09.91 Supervision of high risk pregnancy, unspecified, first trimester (principal); I10 Essential (primary) hypertension; Z3A.00 Weeks of gestation of pregnancy not specified
CPT/HCPCS: 36415; 59025; 76819; 80053; 82248; 82570; 84156; 84550; 85027

== ENCOUNTER 2024-09-20 08:57 | Outpatient (RCR) | payer OTHER, SELFPAY ==
[2024-08-12 15:26] VITALS: BP 140/83; PULSE 89
[2024-08-19 15:57] VITALS: BP 136/90; PULSE 98
[2024-08-25 11:00] VITALS: BP 128/84; PULSE 92
[2024-09-02 10:30] VITALS: BP 147/94; PULSE 95
[2024-09-09 15:05] LABS: Basophils Percent Auto 0.2 % (0.2-1.2); Eosinophils Absolute Auto 0.1 K/mm3 (0-0.3); Eosinophils Percent Auto 1.1 % (0-4.4); Hematocrit 36.6 % (37.0-47.0); Hemoglobin 12.2 g/dL (12.0-15.0); Immature Granulocyte Absolute 0.09 K/mm3 (0.00-0.031); Lymphocytes Absolute Auto 0.89 K/mm3 (0.9-3.2); Lymphocytes Percent Auto 9.8 % (18.3-44.2); Mean Corpuscular HGB Conc 33.3 g/dl (32-36); Mean Corpuscular Hemoglobin 29.1 pg (26-34); Mean Corpuscular Volume 87.4 fl (80-100); Mean Platelet Volume 10.6 fl (7.4-10.4); Monocytes Absolute Auto 0.4 K/mm3 (0.1-0.6); Monocytes Percent Auto 4.6 % (2.6-8.5); Neutrophils Absolute Auto 7.6 K/mm3 (1.3-6.7); Neutrophils Percent Auto 83.3 % (45.5-73.1); Platelet Count Result 149 k/mm3 (150-375); Red Blood Count 4.19 M/mm3 (4.2-5.4); Red Cell Distribution Width 15.9 % (11.5-14.5); White Blood Count 9.1 K/mm3 (4.5-10.0)
--- NOTE | 2024-09-09 15:12 | PC.NURSE ---
notified jono of pt BP and PIH work up. verified US order. D/C with 24 hr urine.
[2024-09-09 15:13] LABS: Alanine Aminotransferase 18 U/L (6-35); Albumin Level 3.7 g/dL (3.5-5.1); Alkaline Phosphatase 129 U/L (38-126); Anion Gap 6 mmol/L (4-12); Aspartate Amino Transferase 29 U/L (14-36); Bilirubin,Total 0.6 mg/dL (0.2-1.3); Blood Urea Nitrogen 8 mg/dL (7-17); Calcium 9.1 mg/dL (8.4-10.2); Carbon Dioxide 23 mmol/L (22-30); Chloride 104 mmol/L (98-107); Estimated Glomerular Filt Rate > 60; Glucose 118 mg/dL (65-110); Potassium 3.6 mmol/L (3.4-5.0); Sodium 133 mmol/L (137-145); Uric Acid 3.9 mg/dL (2.5-7.5)
[2024-09-09 15:31] LABS: Add Urine Microscopic? YES; Appearance Urine Clear (Clear); Bacteria Urine None Seen /hpf; Bilirubin Urine Negative (Negative); Blood Urine Negative (Negative); Calcium Oxalate Crystals Urine Present /hpf; Color Urine Yellow (Yellow); Glucose Urine UA Negative (Negative); Ketones Urine Negative (Negative); Leukocyte Esterase Ur Trace LEU/UL (Negative); Need Manual Microscopic Reviewed; Nitrate Urine Negative (Negative); Non Pathogenic Casts 0-2; Protein Urine Trace mg/dL (Negative); RBC Urine 0-2 /hpf (0-2); Specific Grav Ur 1.017 (1.001-1.035); Squamous Epithelial Cell Urine Occasional /hpf (Few); Urobilinogen Urine 0.2 mg/dL (<2.0); WBC Urine 0-5 /hpf (0-3); pH Urine 5.5 (5.0-9.0)
[2024-09-09 15:32] VITALS: BP 142/89; PULSE 100
[2024-09-09 16:47] LABS: Creatinine Urine 117.7 mg/dL; Total Protein Urine Random 23 mg/dL
[2024-09-12 15:45] VITALS: BP 139/87; PULSE 90
[2024-09-16 10:30] VITALS: BP 141/92; PULSE 98
--- NOTE | ~2024-09-20 | US_ITS ---
LIMITED OBSTETRIC ULTRASOUND/BIOPHYSICAL PROFILE Ordering provider: Omero Kumar MD History: . BPP/ CHTN . Comparison: None. FINDINGS: MATERNAL CERVIX: Not visualized. PRESENTATION: Vertex. Longitudinal lie. PLACENTAL LOCATION: Anterior. No previa. HEART RATE: 143 bpm. AMNIOTIC FLUID INDEX: Largest vertical pocket is 4.8 cm. OTHER: Maternal ovaries not visualized. SCORE: breathing movements: 2 movements: 2 tone: 2 Amniotic fluid volume: 2 Total: 8 IMPRESSION: Normal biophysical profile. Single live fetus of cephalic presentation. Reviewed, dictated and finalized at location A.
--- NOTE | ~2024-09-20 | US_ITS ---
LIMITED OBSTETRIC ULTRASOUND/BIOPHYSICAL PROFILE Ordering provider: Omero Kumar MD History: . elevated BP's,Hx PreE . Comparison: None. FINDINGS: MATERNAL CERVIX: Not visualized. cm which is normal (normal is equal to or greater than 3.0 cm). PRESENTATION: Vertex. Longitudinal lie. PLACENTAL LOCATION: Anterior. No previa. HEART RATE: 145 bpm (normal is between 110 to 160 bpm). AMNIOTIC FLUID INDEX: Largest vertical pocket is 6.7 cm. OTHER: Maternal ovaries not visualized. SCORE: breathing movements: 2 movements: 2 tone: 2 Amniotic fluid volume: 2 Total: 8 The right fecal renal pelvis measures 0.6 cm. IMPRESSION: Normal biophysical profile. Slight dilatation of the the right renal pelvis. Reviewed, dictated and finalized at location A.
--- NOTE | ~2024-09-20 | US_ITS ---
LIMITED OBSTETRIC ULTRASOUND Ordering provider: Omero Kumar MD History: . BELLA . Comparison: None. FINDINGS: PRESENTATION: Vertex. Longitudinal lie. PLACENTAL LOCATION: Anterior. No previa. HEART RATE: 134 bpm (normal is between 110 to 160 bpm). Right renal dilatation is seen measuring 0.51 cm. AMNIOTIC FLUID INDEX: 9..55 cm. 5th percentile is 7.9 cm. 25th percentile is 24.9 cm. Largest vertic al pocket is 5.49 cm. normal (BELLA between 5-25 cm in from 20-35 weeks gestation is considered normal) . IMPRESSION: BELLA is 9.55 cm. Right fecal renal dilatation measuring 0.51 cm. Reviewed, dictated and finalized at location A.
--- NOTE | ~2024-09-20 | US_ITS ---
EXAMINATION: US OB BPP wo non-stress DATE: 09/16/2024 10:37 INDICATION: Biophysical profile and amniotic fluid index. TECHNIQUE: Real-time pelvic ultrasound was performed. The interpreting radiologist was not present fo r the study. COMPARISON: None. FINDINGS: There is a single living fetus in vertex presentation. The placenta is anterior and not low-lying. F etal heart rate is 155 beats per minute (bpm). Normal amniotic fluid index of 9.6 cm. Biophysical profile performed by the technologist: breathing (30 sec sustained breathing in 30 minutes): 2 out of 2 movement (3 gross body movements in 30 minutes): 2 out of 2 tone (one episode of kilcqhq-ujlmghpdq-rxqthez limb movement): 2 out of 2 Amniotic fluid pocket (2 cm): 2 out of 2 Total score: 8 out of 8 IMPRESSION: 1. Single living fetus in vertex presentation with heart rate of 155 bpm. 2. Biophysical profile 8 out of 8. 3. Normal amniotic fluid of 9.6 cm. Reviewed, dictated and finalized at location A.
--- NOTE | ~2024-09-20 | US_ITS ---
LIMITED OBSTETRIC ULTRASOUND/BIOPHYSICAL PROFILE Ordering provider: Omero Kumar MD History: . GHTN- BELLA . Comparison: None. FINDINGS: MATERNAL CERVIX: Not visualized. PRESENTATION: Vertex. Longitudinal lie. PLACENTAL LOCATION: Anterior. No previa. HEART RATE: 152 bpm (normal is between 110 to 160 bpm). AMNIOTIC FLUID INDEX: 10.3 cm. 5th Percentile is 7.7 cm. 95th percentile is 24.9 cm. Largest vertical pocket is 4.5 cm. normal (BELLA between 5-25 cm in from 20-35 weeks gestation is considered normal). OTHER: Maternal ovaries not visualized. SCORE: breathing movements: 2 movements: 2 tone: 2 Amniotic fluid volume: 2 Total: 8 IMPRESSION: Normal biophysical profile. BELLA is 10.3 cm which is normal. Reviewed, dictated and finalized at location A.
--- NOTE | ~2024-09-20 | US_ITS ---
EXAMINATION: US OB BPP wo non-stress DATE: 09/02/2024 08:59 INDICATION: Hypertension during third trimester TECHNIQUE: Real-time pelvic ultrasound was performed. The interpreting radiologist was not present fo r the study. COMPARISON: None. FINDINGS: There is a single living fetus in vertex presentation. The placenta is anterior. heart rate is 146 beats per minute (bpm). Amniotic fluid volume appears subjectively normal with normal deepest ve rtical pocket measurement of 2.5 cm. Biophysical profile performed by the technologist: breathing (30 sec sustained breathing in 30 minutes): 2 out of 2 movement (3 gross body movements in 30 minutes): 2 out of 2 tone (one episode of hkjrlxq-bfdtjzgdi-ieldcqg limb movement): 2 out of 2 Amniotic fluid pocket (2 cm): 2 out of 2 Total score: 8 out of 8 IMPRESSION: 1. Single living fetus in vertex presentation with heart rate of 146 bpm. 2. Biophysical profile 8 out of 8. Reviewed, dictated and finalized at location A.
[2024-09-20 10:02] LABS: Basophils Percent Auto 0.3 % (0.2-1.2); Eosinophils Absolute Auto 0.1 K/mm3 (0-0.3); Eosinophils Percent Auto 1.7 % (0-4.4); Hematocrit 36.3 % (37.0-47.0); Hemoglobin 12.1 g/dL (12.0-15.0); Immature Granulocyte Absolute 0.15 K/mm3 (0.00-0.031); Immature Granulocyte Percent A 2.1 % (0-0.5); Immature Platelet Fraction Pct 7.1 % (0.9-11.2); Lymphocytes Absolute Auto 0.84 K/mm3 (0.9-3.2); Lymphocytes Percent Auto 11.6 % (18.3-44.2); Mean Corpuscular HGB Conc 33.3 g/dl (32-36); Mean Corpuscular Hemoglobin 30.1 pg (26-34); Mean Corpuscular Volume 90.3 fl (80-100); Mean Platelet Volume 10.8 fl (7.4-10.4); Monocytes Absolute Auto 0.4 K/mm3 (0.1-0.6); Monocytes Percent Auto 5.5 % (2.6-8.5); Neutrophils Absolute Auto 5.7 K/mm3 (1.3-6.7); Neutrophils Percent Auto 78.8 % (45.5-73.1); Platelet Count Result 133 k/mm3 (150-375); Red Blood Count 4.02 M/mm3 (4.2-5.4); Red Cell Distribution Width 16.4 % (11.5-14.5); White Blood Count 7.2 K/mm3 (4.5-10.0)
[2024-09-20 10:08] LABS: Add Urine Microscopic? YES; Appearance Urine Clear (Clear); Bacteria Urine None Seen /hpf; Bilirubin Urine Negative (Negative); Blood Urine Negative (Negative); Color Urine Yellow (Yellow); Glucose Urine UA Negative (Negative); Ketones Urine Negative (Negative); Leukocyte Esterase Ur Negative LEU/UL (Negative); Nitrate Urine Negative (Negative); Non Pathogenic Casts 0-2; Protein Urine Trace mg/dL (Negative); RBC Urine 0-2 /hpf (0-2); Specific Grav Ur 1.015 (1.001-1.035); Squamous Epithelial Cell Urine None Seen /hpf (Few); WBC Urine 0-5 /hpf (0-3); pH Urine 6.5 (5.0-9.0)
[2024-09-20 10:16] LABS: Alanine Aminotransferase 14 U/L (6-35); Albumin Level 3.4 g/dL (3.5-5.1); Alkaline Phosphatase 146 U/L (38-126); Anion Gap 4 mmol/L (4-12); Aspartate Amino Transferase 27 U/L (14-36); Bilirubin,Total 0.5 mg/dL (0.2-1.3); Blood Urea Nitrogen 7 mg/dL (7-17); Calcium 9.1 mg/dL (8.4-10.2); Carbon Dioxide 25 mmol/L (22-30); Chloride 107 mmol/L (98-107); Estimated Glomerular Filt Rate > 60; Glucose 126 mg/dL (65-110); Potassium 3.6 mmol/L (3.4-5.0); Sodium 136 mmol/L (137-145); Uric Acid 3.8 mg/dL (2.5-7.5)
[2024-09-20 10:31] LABS: Creatinine Urine 89.3 mg/dL; Total Protein Urine Random 18 mg/dL
--- NOTE | 2024-09-20 10:45 | PC.NURSE ---
9769- SPoke with Dr Kumar regarding BP's. Patient states BPs have been elevated over the weekend. No headache, blurry vision or RUQ pain. Orders to complete [facility] labs. 8774- Spoke with Dr Kumar regarding labs. Orders to induce patient. Patient may go home and get bag, and return.
== END 2024-09-20 10:48 | disposition home or self-care (01) ==
LOC: ANHOBOP 08:57
PROVIDERS: PCP Nurse Practitioner Family; Visit Provider Obstetrics & Gynecology
DX: O13.9 Gestational [pregnancy-induced] hypertension without significant proteinuria, unspecified trimester (principal)
CPT/HCPCS: 36415; 59025; 76815; 76819; 80053; 81001; 82570; 84156; 84550; 85025; 85055

== ENCOUNTER 2024-09-20 11:54 | Inpatient (IN) | payer OTHER, SELFPAY ==
[2024-09-20] VITALS (119 sets, daily range): BP systolic 123–152; BP diastolic 66–104; PULSE 68–113; TEMP 36.4–36.6; O2SAT 98–100; BMI 41.6
--- OUTSIDE RECORDS SUMMARY | 2024-09-20 12:09 | XMS_ITS | Clinical Summary ---
Author Organization [facility] Address [address] [place] [address] Phone Care Team Providers Care Service Center Coordinator Name Role Phone Unavailable Primary Care Provider [...] - 09/08/2024 11:59 PM CDT Hospital Encounter [facility] [address] [place] [address] Brianne Chappell MD Discharge Disposition: Home or Self Care 09/08/2024 External Device Data STL ABSTRACTION Provider, Abstract 08/12/2024 1:51 PM CDT - 08/12/2024 11:59 PM CDT Hospital Encounter [facility] [address] [place] [address] Agustin Ramsay MD Discharge Disposition: Home or Self Care 08/03/2024 External Device Data STL ABSTRACTION Provider, Abstract 07/15/2024 2:30 PM CDT - 07/15/2024 11:59 PM CDT Hospital Encounter [facility] [address] [place] [address] Brianne Chappell MD Goldkamp, Jennifer, [...] Comments Blood Pressure 120/88 04/12/2021 3:10 PM [employer] SALESPERSON Pulse 87 04/12/2021 3:10 PM [employer] SAL[employer]ERSON Temperature - - Respiratory Rate - - Oxygen Saturation 99% 04/12/2021 3:10 PM [employer] SAL[employer]ERSON Inhaled Oxygen Concentration - - Weight 106.4 kg (234 lb 9.6 oz) 04/12/2021 3:10 PM [employer] SAL[employer]ERSON Height 170.2 cm (5' 7) 04/12/2021 3:10 PM [employer] SAL[employer]ERSON Body Mass Index 36.74 04/12/2021 3:10 PM [employer] SALESPERSON Plan of Treatment Health Maintenance Due Date [...] BERMUDEZ Study Date: 09/08/2024 3:58pm Pat. NO: [id number] Referring MD: ELIZABETH BILLY MD Site: [facility] Technical Support Technician: Alexa Silverman RDMS : 1985 Age: 39 [...] Z36.2: Encounter for other screening follow-up Procedures 19169: Ultrasound, uterus, real time with image documentation, [...] 7 lb 1 oz EFW by Hadlock ([id number]) Extremities / Bony Struc Biometry: FL / [...] and date of were verified by the tile picker prior to the exam IMPRESSION ----- Ramírez [...] Procedure Note Emerita Caicedo MD - 09/08/2024 [facility] FOLLOW UP ----- Pat. Name:Michael BERMUDEZ Date:09/08/2024 3:58pm Pat. NO: [id number] MD:ELIZABETH BILLY MD [facility]Alexa Silverman RDMS :01/01/1986Age:39 ----- INDICATION ----- Screening Follow-Up Personal History of Other Complications Preeclampsia Chronic Hypertension (HTN) Depression Advanced Maternal Age (AMA), Multigravida CODING ----- Diagnoses Z3A.35: Weeks of gestation O09.523: Supervision of elderly multigravida O99.343: Other mental disorders complicatingpregnancy O10.013: Pre-existing essential hypertensioncomplicating Z87.59: Personal history of other complications ofpregnancy, childbirth and the puerperium Z36.2: Encounter for other screeningfollow-up Procedures 06518: Ultrasound, uterus, real time withimage documentation, follow up, transabdominal approach per fetus HISTORY ----- OB History 2. Para 1 MATERNAL ASSESSMENT ----- Physical Exam Weight 106 kg. BMI 36.65 kg/m METHOD ----- Transabdominal ultrasound examination ----- Ramírez . Number of fetuses: 1 DATING ----- GA by prior [id number] w + 5 d NINFA by prior [...] 7 lb 1 oz EFW by Hadlock ([id number]) Extremities / Bony Struc Biometry: FL / [...] and date of were verified by the tile picker prior tothe exam IMPRESSION ----- Ramírez @ [...] Final Result from Last 3 Months Insurance [facility] [id number]
--- NOTE | 2024-09-20 12:21 | LDADM ---
This patient, Aletha Bermudez, was admitted to Labor/Delivery/Recovery 106 on 09/20/24 at 11:54. Plans for labor, pain management and were discussed with patient. Patient/family oriented to hospital policies and general routines including ID bracelet, bed and alarms, visiting hours, pain management, procedures, bathroom and other care routines, personal items, smoking policy, room service/diet and guest tray routines, infant security routines, and visiting hours. Patient/Family are encouraged to report perceived risks to care and to ask questions if they do not understand what they are told or what they should do. See OBIX for further documentation.
[2024-09-20 12:35] LABS: Basophils Percent Auto 0.3 % (0.2-1.2); Eosinophils Absolute Auto 0.1 K/mm3 (0-0.3); Eosinophils Percent Auto 1.5 % (0-4.4); Hematocrit 36.2 % (37.0-47.0); Hemoglobin 12.2 g/dL (12.0-15.0); Immature Granulocyte Absolute 0.11 K/mm3 (0.00-0.031); Immature Granulocyte Percent A 1.5 % (0-0.5); Immature Platelet Fraction Pct 6.7 % (0.9-11.2); Lymphocytes Absolute Auto 0.92 K/mm3 (0.9-3.2); Lymphocytes Percent Auto 12.5 % (18.3-44.2); Mean Corpuscular HGB Conc 33.7 g/dl (32-36); Mean Corpuscular Hemoglobin 29.8 pg (26-34); Mean Corpuscular Volume 88.3 fl (80-100); Mean Platelet Volume 10.2 fl (7.4-10.4); Monocytes Absolute Auto 0.5 K/mm3 (0.1-0.6); Monocytes Percent Auto 7.1 % (2.6-8.5); Neutrophils Absolute Auto 5.7 K/mm3 (1.3-6.7); Neutrophils Percent Auto 77.1 % (45.5-73.1); Platelet Count Result 148 k/mm3 (150-375); Red Cell Distribution Width 16.6 % (11.5-14.5); White Blood Count 7.4 K/mm3 (4.5-10.0)
[2024-09-20] MEDS: LACTATED RINGERS 1,000 ML 125 ML IV CONT (12:45)
[2024-09-20] MEDS: AMPICILLIN 2 GM/NS 100 ML 2 GM/100 ML BAG IVPB (12:45)
[2024-09-20] MEDS: miSOPROStol 25 MCG TABLET BUCCAL (12:46)
[2024-09-20 13:12] LABS: Syphilis IgG/IgM Antibody Negative (Negative)
[2024-09-20 13:25] LABS: HIV 1/2 Ab P24 Ag Result Negative (Negative)
[2024-09-20] MEDS: AMPICILLIN 1 GM/NS 50 ML 1 GM/50 ML BAG IVPB ×2 (16:50→20:50)
[2024-09-20] MEDS: OXYTOCIN 30 UNITS/NS 500 ML 30 UNITS/500 ML BAG IV CONT (17:04)
--- NOTE | 2024-09-20 17:59 | P.HP_ITS ---
H&P: HPI History of Present Illness Date/Time: 09/20/24 17:59 Chief Complaint: Increasing blood pressure Narrative: 39 y/o G2 h/o chtn on Procardia. She complained of increasing blood pressures at home 150s had 1 in the 160s also had most in the 90s. Denied any at or over 110. she was recommended for induction of labor due to increasing blood pressures. h/o transient thrombocytopenia since June of 2024. this occurred with the last . Platelet count was followed since July the lowest was 120. As she did not have any signs or symptoms or severe range blood pressures at that time. Protein creatinine ratio remained normal. She did have elevated protein on a 24 hour urine on September 10. No severe symptoms or blood pressure readings. She did not have a baseline 24 hour urine prior to this. She was monitored weekly and had surveillance testing reassuring. Review of Systems Review of Systems: All systems reviewed & are unremarkable except as noted in HPI and below Constitutional: Constitutional: Reports no additional constitutional complaints and Denies headache(s) Eyes: Eyes: Denies spots in vision ENT: Reports system reviewed and no additional complaints, except as documented and Denies headache(s) Cardiovascular: Cardiovascular: Denies chest pain and Denies dyspnea Respiratory: Respiratory: Denies dyspnea Gastrointestinal: Gastrointestinal: Reports no additional gastrointestinal complaints Genitourinary: Genitourinary: Reports amenorrhea Musculoskeletal: Musculoskeletal: Reports no additional musculoskeletal complaints Integumentary/Breasts: Skin/Breast: Denies breast mass and Denies rash Neurologic: Denies headache(s) Psychiatric: Psychiatric: Reports no additional psychiatric complaints [facility] Past Medical History Medical History SAB (spontaneous ) hypertension GBS carrier Pre-eclampsia History of human papillomavirus infection No active medical problems Surgical History Surgical History No significant past surgical history Family History Family History Father Hypertension Heart disease Sibling Hypertension Grandparent Carcinoma of colon Lung cancer Ovarian cancer Social History Social History Smoking status: Former smoker Smoking end date: 04/21/16 Alcohol intake: current Substance use: never Do You Feel Safe in your Home?: Yes Lack of Transportation: No Lack of Food: Never True Current Housing: I Have Housing Concerned About Future Housing: No Difficulty Paying Gas/Electric Bills: No Difficulty Paying for Meds: No Currently Unemployed: No Education: Bachelor's Degree Difficulty w/ Childcare or Family Care: No Living arrangements: with family Occupation/Education: occupation 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 Spiritual care concerns: No Meds Home Medications and Allergies Home Medications ?Medication ?Instructions ?Recorded ?Confirmed ?Type vitamin#30 30 mg iron-10 cap PO 03/25/24 08/27/24 History mg iron-folic acid 1 mg-omg3 capsule aspirin 81 mg tablet,delayed 81 mg PO DAILY 07/02/24 09/20/24 History release nifedipine 30 mg tablet,extended 30 mg PO DAILY #30 tabs 09/14/24 09/20/24 Rx release 24 hr (Procardia XL) Allergies Allergy/AdvReac Type Severity Reaction Status Date / Time No Known Allergies Allergy Verified 09/20/24 13:42 Vital Signs Vital Signs - 24 hr 09/20/24 12:12 09/20/24 12:21 09/20/24 12:39 Temperature 97.6 F Pulse Rate 92 Blood Pressure 152/92 H Pulse Oximetry Oxygen Delivery Room Air 09/20/24 12:55 09/20/24 13:00 09/20/24 13:05 Temperature Pulse Rate Blood Pressure Pulse Oximetry 98 99 99 Oxygen Delivery 09/20/24 13:10 09/20/24 13:15 09/20/24 13:20 Temperature Pulse Rate Blood Pressure Pulse Oximetry 99 99 99 Oxygen Delivery 09/20/24 13:25 09/20/24 13:44 09/20/24 13:49 Temperature Pulse Rate Blood Pressure Pulse Oximetry 99 99 99 Oxygen Delivery 09/20/24 13:54 09/20/24 13:59 09/20/24 14:00 Temperature Pulse Rate 91 Blood Pressure 146/89 H Pulse Oximetry 100 98 Oxygen Delivery 09/20/24 14:04 09/20/24 14:09 09/20/24 14:14 Temperature Pulse Rate Blood Pressure Pulse Oximetry 100 99 99 Oxygen Delivery 09/20/24 14:19 09/20/24 14:24 09/20/24 14:31 Temperature Pulse Rate 86 Blood Pressure 152/87 H Pulse Oximetry 99 100 Oxygen Delivery 09/20/24 14:32 09/20/24 14:37 09/20/24 14:37 Temperature Pulse Rate Blood Pressure Pulse Oximetry 99 99 99 Oxygen Delivery 09/20/24 14:42 09/20/24 14:47 09/20/24 14:52 Temperature Pulse Rate Blood Pressure Pulse Oximetry 99 100 100 Oxygen Delivery 09/20/24 14:57 09/20/24 15:00 09/20/24 15:02 Temperature Pulse Rate 84 Blood Pressure 138/82 Pulse Oximetry 100 100 Oxygen Delivery 09/20/24 15:07 09/20/24 15:12 09/20/24 15:17 Temperature Pulse Rate Blood Pressure Pulse Oximetry 100 100 99 Oxygen Delivery 09/20/24 15:22 09/20/24 15:27 09/20/24 15:30 Temperature Pulse Rate 80 Blood Pressure 137/89 Pulse Oximetry 99 100 Oxygen Delivery 09/20/24 15:32 09/20/24 15:37 09/20/24 15:42 Temperature Pulse Rate Blood Pressure Pulse Oximetry 99 99 100 Oxygen Delivery 09/20/24 15:46 09/20/24 15:51 09/20/24 15:56 Temperature Pulse Rate Blood Pressure Pulse Oximetry 100 100 98 Oxygen Delivery 09/20/24 16:00 09/20/24 16:01 09/20/24 16:06 Temperature Pulse Rate 81 Blood Pressure 123/72 Pulse Oximetry 98 100 Oxygen Delivery 09/20/24 16:11 09/20/24 16:13 09/20/24 16:18 Temperature Pulse Rate Blood Pressure Pulse Oximetry 99 100 100 Oxygen Delivery 09/20/24 16:23 09/20/24 16:28 09/20/24 16:30 Temperature Pulse Rate 78 Blood Pressure 123/66 Pulse Oximetry 99 99 Oxygen Delivery 09/20/24 16:33 09/20/24 16:35 09/20/24 16:40 Temperature Pulse Rate Blood Pressure Pulse Oximetry 100 99 100 Oxygen Delivery 09/20/24 17:00 09/20/24 17:04 09/20/24 17:09 Temperature Pulse Rate 81 Blood Pressure 142/89 H Pulse Oximetry 100 100 Oxygen Delivery 09/20/24 17:14 09/20/24 17:19 09/20/24 17:24 Temperature Pulse Rate Blood Pressure Pulse Oximetry 99 99 100 Oxygen Delivery 09/20/24 17:29 09/20/24 17:34 09/20/24 17:39 Temperature Pulse Rate Blood Pressure Pulse Oximetry 98 100 100 Oxygen Delivery 09/20/24 17:44 09/20/24 17:49 09/20/24 17:54 Temperature Pulse Rate Blood Pressure Pulse Oximetry 100 100 100 Oxygen Delivery Exam Const: General: no acute distress Eyes: General: appearance normal, both eyes and all related structures Resp: Effort & Inspection: normal respiratory effort Cardio: Rate: regular rate GI: Other: Gravid no fundal tenderness no right upper quadrant pain Skin: General skin exam: no rashes or lesions noted Neuro: Cognition (Neuro): normal cognition Extrem: General: normal to inspection Psych: Mental Status: mental status grossly normal H&P: Results Labs Labs: Short CBC 09/20/24 Range/Units 12:18 WBC 7.4 (4.5-10.0) K/mm3 Hgb 12.2 (12.0-15.0) g/dL Hct 36.2 L (37.0-47.0) % Plt Count 148 L (150-375) k/mm3 Assessment and Plan Assessment and plan (1) Chronic hypertension: Code(s): I10 - Essential (primary) hypertension Status: Acute Assessment and Plan: Pre- eclampsia without severe symptoms. Admit. Cytotec. 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
[2024-09-21] VITALS (223 sets, daily range): BP systolic 119–179; BP diastolic 68–119; PULSE 65–118; RESP 16; TEMP 36.6–36.8; O2SAT 95–100
[2024-09-21] MEDS: AMPICILLIN 1 GM/NS 50 ML 1 GM/50 ML BAG IVPB ×4 (00:45→13:34)
--- NOTE | 2024-09-21 13:17 | P.PNAN_ITS ---
Anes - Initial Pre Proc Eval Procedure: labor epidural Date/Time: 09/21/24 13:17 Surgeon: Omero Kumar MD Pre Op Diagnosis: labor pain Pre Op Diagnosis: IOL Patient Data Age: 39 Gender: F Height: 1.68 m Weight: 117 kg Last Vital Signs Temp 36.6 C 09/21/24 09:00 Pulse 85 09/21/24 13:00 BP 179/94 H 09/21/24 13:00 Pulse Ox 100 09/21/24 12:25 O2 Del Method Room Air 09/20/24 12:21 Allergies Allergy/AdvReac Type Severity Reaction Status Date / Time No Known Allergies Allergy Verified 09/20/24 13:42 Home Medications ?Medication ?Instructions ?Recorded ?Confirmed ?Type vitamin#30 30 mg iron-10 cap PO 03/25/24 08/27/24 History mg iron-folic acid 1 mg-omg3 capsule aspirin 81 mg tablet,delayed 81 mg PO DAILY 07/02/24 09/20/24 History release nifedipine 30 mg tablet,extended 30 mg PO DAILY #30 tabs 09/14/24 09/20/24 Rx release 24 hr (Procardia XL) Laboratory Tests 09/20/24 12:18 HIV 1&2 Ab/P24 Ag 4thGn Negative (Negative) Blood Type O Negative Antibody Screen Positive Antibody Identification Inconclusive Antigen Identification Cancelled SAURAV, IgG Interpret Not Performed SAURAV, Poly Interpret Neg SAURAV, Complement Interp Not Performed Patient hx anesthesia problems: none Family hx anesthesia problems: none Results Review: All pre-operative results and documents have been reviewed as part of the pre- operative evaluation. [facility] Past Medical History Medical History SAB (spontaneous ) hypertension GBS carrier Pre-eclampsia History of human papillomavirus infection No active medical problems Surgical History Surgical History No significant past surgical history Family History Family History Father Hypertension Heart disease Sibling Hypertension Grandparent Carcinoma of colon Lung cancer Ovarian cancer Social History Social History Smoking status: Former smoker Smoking end date: 04/21/16 Alcohol intake: current Substance use: never Do You Feel Safe in your Home?: Yes Lack of Transportation: No Lack of Food: Never True Current Housing: I Have Housing Concerned About Future Housing: No Difficulty Paying Gas/Electric Bills: No Difficulty Paying for Meds: No Currently Unemployed: No Education: Bachelor's Degree Difficulty w/ Childcare or Family Care: No Living arrangements: with family Occupation/Education: occupation 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 Informed Consent: The patient's anesthetic plan and its attendant risks and benefits were discussed with the patient/family/POA. Questions were solicited and answers provided to the satisfaction of the patient/family/POA.
[2024-09-21] MEDS: IBUPROFEN 600 MG TABLET PO (19:34)
[2024-09-21] MEDS: ACETAMINOPHEN 325 MG TABLET 650 MG PO (19:34)
--- NOTE | 2024-09-21 20:10 | OBPPTRN ---
Patient transferred to post room #288 via wheelchair. Support person present. Oriented to unit, room, information board, rooming in, admission packet and security measures. Patient verbalizes understanding.
[2024-09-22 01:15] VITALS: BP 151/95; PULSE 79; RESP 16; TEMP 36.2; O2SAT 98
[2024-09-22 05:42] LABS: Hematocrit 35.1 % (37.0-47.0); Hemoglobin 11.8 g/dL (12.0-15.0)
[2024-09-22 07:50] VITALS: BP 150/97; PULSE 83; RESP 16; TEMP 37; O2SAT 99
[2024-09-22] MEDS: MULTIVIT/MIN/PREN/FOL AC/IRON TABLET 1 TAB PO (08:26)
[2024-09-22] MEDS: NIFEdipine 30 MG TAB.ER.24 60 MG PO (08:26)
[2024-09-22 08:30] VITALS: PULSE 83; RESP 16; O2SAT 99
[2024-09-22] MEDS: IBUPROFEN 600 MG TABLET PO (08:44)
--- NOTE | 2024-09-22 10:12 | PC.NURSE ---
Introductions were made, then consulted with patient to assess needs related to . Mother led the conversation with her?plans to feed?her and the?experience so far. Per mother she plans on breast and supplementing as needed. She does have her own breast pump here with her and will call [facility] RN when done feeding for nipple measurement. Mother requested assistance with a deeper latch, she had seen some pinching of her nipple with previous feedings. Encouraged understanding of the benefits of skin to skin (demonstrating unwrapping infant and placing upright on her chest), stimulating with massage touch, changing positions to encourage wakefulness, how to watch for early feeding cues, responsive feeding, feeding on demand (aiming for 8-12 times in 24 hours, about every 2-3 hours), milk production, building/maintaining a milk supply, duration of feeding, signs of adequate intake/output and how to record on the feeding sheet. Mother works well with her infant with encouragement and education. Reviewed positioning and ear, shoulder, hip alignment, supporting the breast to facilitate a deep latch, asymmetrical latch (off-center), leading with the chin with a big, open, wide gape and body close to mother. latched optimally to the [right] breast in [cross cradle] position. Education given to the mother of how to visualize the suckling (with good rocking jaw motion), swallows (dropping of the lower jaw) and how to listen for drinking at the breast (the ka sound). was [able] to maintain latch without pain to mother protecting the nipple with optimal positioning and latching. Reviewed comfort measures of healing with a warm, wet washcloth to rinse breast, then leave open to air-dry, good handwashing when or touching the breast/nipples to prevent infection. Mother voiced understanding of skin to skin, stimulating with massage touch, responsive feedings, hand expressed colostrum, talking to to encourage if it has been 2 -2.5 hours since the start of the last , to call if infant does not latch, or if there is discomfort with . Resources used for education were facilitated with the [visual educational handouts/ tool/mom and baby guide], Inpatient/outpatient resources provided with business card, feeding sheet, name written on the communication board, and the mom/baby guide. Mother voiced understanding of information, demonstrated learning and will call for nipple measurement and if there is a request for assistance. Reported to the Primary RN.
--- NOTE | 2024-09-22 12:22 | PM.OBPRVD ---
OB - Vaginal Delivery Note Procedure Delivery date: 09/22/24 Events: Chronic Hypertension and Preeclampsia w/o severe features Induction method: Per Misoprostol Protocol Delivery augmentation: Rupture of Membranes and Pitocin Delivery monitor: External FHT Route of delivery: Episiotomy description: None Laceration Description: None Specimen: No Quantitative Blood Loss (ml): 150 Anesthesia type: Epidural Disposition: Floor Complications: No immediate complications Narrative: She is admitted for induction of labor due to preeclampsia without severe features. She did have a dose of Cytotec. She progressed to favorable cervix. Pitocin initiated in the evening but had some decelerations. It was discontinued. She was monitored through the night. Ampicillin continued for GBS carrier. Pitocin started in am. She had AROM clear fluid. She progressed to active labor. She had epidural placed on request. She dilated to complete and had an uncomplicated vaginal delivery of a female . 's nose and mouth suctioned at perineum. With gentle traction the shoulders and the rest of infant delivered. Infant vigorously crying and placed on maternal abdomen. Delayed cord clamping until cord apulsatile and then cord doubly clamped and cut. Pitocin started. Placenta delivered spontaneously and intact. She tolerated procedure well. Baby Date of : 09/21/24 Time of : 17:18 Gestational Age by Date: 37 gender: Female Weight (pounds): 7 Weight (ounces): 4 presentation: vertex position: Right Occiput Anterior Placenta delivery description: Spontaneous Cord Vessel Description: 3 Vessels, Clamped/Cut and Delayed Cord Clamping score one minute: 8 score five minutes: 9
--- NOTE | 2024-09-22 12:29 | P.PNOB_ITS ---
OB - PN: Subj Subjective Date/time seen: 09/22/24 12:29 Interval history: She denies any severe headache no scotomata or right upper quadrant pain. Patient comments: pain well controlled, tolerating diet and other (Decreasing lochia.) baby status: doing well OB - PN: Obj Data Labs 09/22/24 04:49 Labs: Laboratory Results - last 24 hr 09/22/24 04:49 Hgb 11.8 L Hct 35.1 L Blood Type O Negative Antibody Screen TNP Screen Negative Baby's Blood Type O pos Baby's SAURAV Negative Doses of RhIg Required 1 OB - PN A/P Assessment and Plan (1) Chronic hypertension: Code(s): I10 - Essential (primary) hypertension Status: Acute Assessment and Plan: No symptoms of severe preeclampsia. Blood pressures increased. Will give her Procardia and increase the dose to 60 mg this morning she usually takes at night. If it is not improved then we will add labetalol. Plan day: 1 Plan: routine care Comments: Patient doing well. Time Spent With Patient Time: Total time spent is greater than 50% in coordination of care (as documented) at patient's floor/unit and/or counseling patient: Exam 2 Psych: Affect: normal affect Other: Abd: fundus firm below umbilicus, nontender Perineum: healing Ext: nontender
[2024-09-22 12:40] VITALS: BP 148/98; PULSE 103; RESP 16; TEMP 36.9; O2SAT 98
[2024-09-22 16:35] VITALS: BP 143/92; PULSE 78; RESP 16; TEMP 36.4; O2SAT 97
[2024-09-22] MEDS: RHO(D) IMMUNE GLOBULIN 300 MCG/2 ML SYRINGE IM (17:23)
[2024-09-22 20:50] VITALS: BP 149/100; PULSE 87; RESP 16; TEMP 36.4; O2SAT 99
[2024-09-23 00:37] VITALS: BP 147/94; PULSE 84; RESP 18; TEMP 36.8; O2SAT 98
[2024-09-23 04:46] VITALS: BP 131/88; PULSE 78; RESP 18; TEMP 36.8; O2SAT 98
[2024-09-23 07:30] VITALS: BP 142/102; PULSE 83; RESP 16; TEMP 36.8; O2SAT 100
--- NOTE | 2024-09-23 08:05 | P.PNOB_ITS ---
OB - PN: Subj Subjective Date/time seen: 09/23/24 08:05 Interval history: She denies any severe headache no scotomata or right upper quadrant pain. states swelling is decreasing. She is doing well. She had questions regarding nursing. Patient comments: pain well controlled, tolerating diet and other (Decreasing lochia.) baby status: doing well and nursing well OB - PN: Obj Data Labs 09/22/24 04:49 Labs: Laboratory Results - last 24 hr 09/22/24 04:49 Blood Type O Negative Antibody Screen TNP Screen Negative Baby's Blood Type O pos Baby's SAURAV Negative Doses of RhIg Required 1 OB - PN A/P Assessment and Plan (1) Vaginal delivery: Code(s): O80 - Encounter for full-term uncomplicated delivery Status: Acute Assessment and Plan: doing well. Reviewed precautions. Anticipate discharge today. (2) Chronic hypertension: Code(s): I10 - Essential (primary) hypertension Status: Acute Assessment and Plan: Blood pressures improved with increased dose of Procardia no signs or symptoms of severe preeclampsia. Will check another set of PIH labs. If normal and blood pressures continue to be improved then we will discharge today. PIH precautions discussed. Plan day: 2 Plan: discharge home and other Comments: Patient doing well. Follow up One week. Discharge instructions provided. Time Spent With Patient Time: Total time spent is greater than 50% in coordination of care (as documented) at patient's floor/unit and/or counseling patient: Time with patient: less than 15 minutes Review of Systems 2 Review of Systems: All systems reviewed & are unremarkable except as noted in HPI and below Constitutional: Constitutional: Reports no additional constitutional complaints Cardiovascular: Cardiovascular: Denies dyspnea Respiratory: Respiratory: Denies dyspnea Gastrointestinal: Gastrointestinal: Reports no additional gastrointestinal complaints and Denies abdominal pain Genitourinary: Genitourinary: Reports no additional female genitourinary complaints Exam 2 Psych: Affect: normal affect Other: Abd: fundus firm below umbilicus, nontender Perineum: healing Ext: nontender
--- NOTE | 2024-09-23 08:08 | P.DS_ITS ---
DS: Admitting Diagnosis Discharge Date September 23, 2024 Admitting Diagnosis chronic hypertension, mild preeclampsia DS: Discharge Diagnosis Discharge Diagnosis (1) Vaginal delivery: Code(s): O80 - Encounter for full-term uncomplicated delivery Status: Acute (2) Chronic hypertension: Code(s): I10 - Essential (primary) hypertension Status: Acute (3) Mild preeclampsia: Code(s): O14.00 - Mild to moderate pre-eclampsia, unspecified trimester Status: Acute Assessment and Plan: without severe signs or symptoms. OB - DS: Summary Hospital Course Hospital Course: Patient was admitted for induction of labor due to mild preeclampsia chronic with chronic hypertension. She had an uncomplicated vaginal delivery. her blood pressures were increased and her Procardia was increased to 60 mg XL. Daily. Blood pressures did improve. Follow-up [facility] labs were within normal limits. She did not have any signs or symptoms of severe preeclampsia. Lochia was decreased. She had adequate pain control was ambulating well baby was doing well. Was discharged home on day 2. PIH precautions discussed. OB Procedures : NST and PIH Mgmt OB Procedures Intrapartum: Spontaneous Vag Delivery OB Procedures: : None Peripartum Data Delivery Method: Natural Vaginal Laceration Description: None Episiotomy description: None complications: none Status at Discharge Functional status at discharge: independent ambulation Overall status at discharge: other (Recovery) Time Spent with Patient Time attestation: Total time spent providing and/or coordinating discharge services: Time spent: Less than 30 minutes Exam Const: General: cooperative Orientation/consciousness: oriented to person, oriented to place and oriented to time HENMT: Face/Nose/Sinus: Normal external nose present Eyes: General: appearance normal, both eyes and all related structures Resp: Effort & Inspection: normal respiratory effort GI: Inspection: normal to inspection Skin: General skin exam: normal color Neuro: General: oriented to person, oriented to place and oriented to time Extrem: General: normal to inspection and no calf tenderness Psych: Appearance: grossly normal Mental Status: mental status grossly normal DS: Data Data Completed and Pending Labs on day of discharge: Labs from last 24 hours 09/22/24 04:49 Blood Type O Negative Antibody Screen TNP Screen Negative Baby's Blood Type O pos Baby's SAURAV Negative Doses of RhIg Required 1 Discharge Plan Discharge Attending physician on discharge: Omero Kumar Consulting providers: Jhonny Mckeon Discharging Clinician: Omero Kumar Anticipated Discharge Date/Time: 09/23/24 11:10 Patient Disposition: Home Activity: may shower and pelvic rest Diet: low sodium Discharge Instructions: Education: Mom and Baby Guide Given to: Mother Follow-Up: Call your delivering provider's office for an appointment to be seen. Mom and baby should come to the [facility] for the follow-up appointment. Appointment Date/Time: September 25, 2024 at 9:00 am What to expect at your follow-up visit: Blood Pressure Check and Physical Asse ssment Call [phone] if you are unable to keep your appointment time. BREAST CARE: * Wear a snug supportive bra. * For engorgement discomfort: Breast Feeding: * Apply warm moist washcloths * Express milk as needed to relieve engorgement * Wear loose clothing * For sore nipples: * Identify correct latch-on * Apply warm moist washcloths before and after nursing * Air dry nipples after nursing * May apply Lansinoh cream to nipples PERINEAL CARE: * Until bleeding stops, use your ally bottle after urinating * Change your pad frequently throughout the day * You may take sitz baths several times a day (fill your bathtub with warm water and soak for 20 minutes.) Do NOT bathe in the water * No tub baths until seen by your physician - You may shower ACTIVITY: * Rest as much as possible. * Do not exercise or lift anything heavier than your baby (such as laundry or other children.) * Avoid stairs or driving as much as possible. * Do not put anything into the vagina. No douching, tampons, or sexual activity until seen by physician. NOTIFY PHYSICIAN IF YOU HAVE ANY QUESTIONS OR IF ANY OF THE FOLLOWING SYMPTOMS OCCUR: * If your perineum becomes red, swollen, or more painful than what you have experienced in the hospital. * If your vaginal bleeding becomes foul smelling. * If your vaginal bleeding becomes more heavy than a period or if your bleeding changes from pink to bright red. However, you may pass an occasional walnut- sized clot once or twice for the first week . * If you experience a sharp, shooting pain in you calves. * If you discover a hard, reddened area on your breast or if you experience flu- like symptoms. DIET: * Eat regular, well-balanced meals. * Drink plenty of fluids daily. Patient Language: Mongolian Stand Alone Forms: General Discharge Information Follow-up/Referrals: Omero Kumar MD [Physician] - Keep Reg. Scheduled Appt. Discharge Medications: New nifedipine [Procardia XL] 30 mg Tablet Extended Release 24hr 60 mg PO QAM Qty: 30 0RF Continued PNV #[id number] 30 mg iron-10 mg iron-1 mg capsule PO Discontinued aspirin 81 mg tablet,delayed release (DR/EC) 81 mg PO DAILY nifedipine [Procardia XL] 30 mg tablet extended release 24hr 30 mg PO DAILY Qty: 30 0RF Date of admission: 09/20/24 11:54 Primary Care Provider: Gloria Cook Admitting Provider: Omero Kumar Attending physician on admission: Omero Kumar Condition: Stable
[2024-09-23 10:01] LABS: Hematocrit 36.9 % (37.0-47.0); Hemoglobin 11.9 g/dL (12.0-15.0); Mean Corpuscular HGB Conc 32.2 g/dl (32-36); Mean Corpuscular Hemoglobin 29.4 pg (26-34); Mean Corpuscular Volume 91.1 fl (80-100); Mean Platelet Volume 9.8 fl (7.4-10.4); Platelet Count Result 135 k/mm3 (150-375); Red Blood Count 4.05 M/mm3 (4.2-5.4); Red Cell Distribution Width 16.6 % (11.5-14.5); White Blood Count 7.4 K/mm3 (4.5-10.0)
[2024-09-23] MEDS: NIFEdipine 30 MG TAB.ER.24 60 MG PO (10:10)
[2024-09-23] MEDS: TETANUS,DIPHTHERIA,AC PERTUSSIS ADULT (0.5 ML) BOOSTRIX IM (10:10)
[2024-09-23] MEDS: IBUPROFEN 600 MG TABLET PO (10:11)
[2024-09-23] MEDS: MULTIVIT/MIN/PREN/FOL AC/IRON TABLET 1 TAB PO (10:11)
[2024-09-23 10:12] LABS: Alanine Aminotransferase 19 U/L (6-35); Anion Gap 7 mmol/L (4-12); Aspartate Amino Transferase 30 U/L (14-36); Blood Urea Nitrogen 8 mg/dL (7-17); Calcium 9.1 mg/dL (8.4-10.2); Carbon Dioxide 23 mmol/L (22-30); Chloride 107 mmol/L (98-107); Estimated CRCL calculation 113 ml/min; Estimated Glomerular Filt Rate > 60; Glucose 89 mg/dL (65-110); Potassium 3.6 mmol/L (3.4-5.0); Sodium 137 mmol/L (137-145); Uric Acid 5.1 mg/dL (2.5-7.5)
[2024-09-23 11:00] VITALS: BP 122/73; PULSE 91; RESP 20
[2024-09-25 09:22] VITALS: BP 142/93; PULSE 94; RESP 18; TEMP 36.9; O2SAT 100
== END 2024-09-23 14:45 | disposition home or self-care (01) | DRG 807 ==
LOC: ANHLDR 09-21 17:29 → ANHOB2 09-21 20:14
PROVIDERS: Admitting Provider Obstetrics & Gynecology; PCP Nurse Practitioner Family; Visit Provider Obstetrics & Gynecology
DX: O10.92 Unspecified pre-existing hypertension complicating childbirth (principal); Z37.0 Single live birth; O11.4 Pre-existing hypertension with pre-eclampsia, complicating childbirth; Z3A.37 37 weeks gestation of pregnancy; O99.824 Streptococcus B carrier state complicating childbirth; O32.6XX0 Maternal care for compound presentation, not applicable or unspecified; O69.81X0 Labor and delivery complicated by cord around neck, without compression, not applicable or unspecified
CPT/HCPCS: 36415; 59025; 80048; 80053; 81001; 82570; 84156; 84450; 84460; 84550; 85014; 85018; 85025; 85027; 85055; 85461; 86593; 86703; 86850; 86880; 86900; 86901; 86902; 90384; 90715; A9270; G0432; J0290; J2590; J2790; J2795; J7120